=== PATIENT | female | born 1965 | race Caucasian/White ===

== ENCOUNTER 2016-10-05 08:35 | Emergency (ER) | payer MEDICARE ==
[2016-10-05 08:43] VITALS: BP 134/66; PULSE 102; RESP 18; TEMP 99.4
[2016-10-05] MEDS ORDERED: SULFAMETH-TMP DS STARTER PACK 2 TAB BTL PO STA (08:58)
[2016-10-05] MEDS ORDERED: DOXYCYCLINE 50 MG CAP PO STA (08:58)
[2016-10-05] MEDS ORDERED: AMOXICILLIN 500MG STARTER PACK 3 CAP BTL PO STA (09:01)
--- NOTE | 2016-10-05 09:10 | ED ---
Skin/Abscess/FB HPI - General Chief complaint: Skin/Abscess/Foreign Body Stated complaint: leg infection Time Seen by Provider: 10/05/16 08:49 Source: patient, RN notes reviewed, old records reviewed Mode of arrival: ambulatory Limitations: no limitations - History of Present Illness Initial comments: This is a 50-year-old female presenting to the emergency Department chief complaint of an erythematous rash over her left lower leg. Patient reports that she thinks she got stung or bit by something on 09/18/2016. Patient reports that she went to her primary care doctor afterward, and was prescribed a cream. Patient reports that it was itchy so she scratched it. She states that over the past week the area has now started to enlarge and has a red ring around it. She does not know exactly what she may have been bit by. She does not recall a tick. Patient states that she's had no fever or chills. She denies any other symptoms. Patient states that she is not ALLERGIC to any antibiotic. Patient reports she is concerned about the cost of antibiotics, as she does not have the financial means for most things. - Related Data Previous Rx's Medication Instructions Recorded Amoxicillin 500 mg PO TID 21 Days 10/05/16 Sulfamethox-Tmp 800-160Mg [Bactrim 1 tab PO Q12HR 10 Days 10/05/16 DS 800-160 mg] Allergies Allergy/AdvReac Type Severity Reaction Status Date / Time No Known Allergies Allergy Verified 10/05/16 08:43 Review of Systems ROS Statement: Those systems with pertinent positive or pertinent negative responses have been documented in the HPI. ROS Other: All systems not noted in ROS Statement are negative. Past Medical History Past Medical History: Seizure Disorder History of Any Multi-Drug Resistant Organisms: None Reported Past Surgical History: No Surgical Hx Reported Past Psychological History: Schizophrenia Smoking Status: Current every day smoker Past Alcohol Use History: None Reported Past Drug Use History: None Reported General Exam - General Exam Comments Initial Comments: His is a 50-year-old female. Patient does not appear to be in any acute distress. Limitations: no limitations General appearance: alert, in no apparent distress Head exam: Present: atraumatic, normocephalic, normal inspection Eye exam: Present: normal appearance, PERRL, EOMI. Absent: scleral icterus, conjunctival injection, periorbital swelling ENT exam: Present: normal exam, mucous membranes moist Neck exam: Present: normal inspection. Absent: tenderness, meningismus, lymphadenopathy Respiratory exam: Present: normal lung sounds bilaterally. Absent: respiratory distress, wheezes, rales, rhonchi, stridor Cardiovascular Exam: Present: regular rate, normal rhythm, normal heart sounds. Absent: systolic murmur, diastolic murmur, rubs, gallop, clicks GI/Abdominal exam: Present: soft, normal bowel sounds. Absent: distended, tenderness, guarding, rebound, rigid Extremities exam: Present: normal inspection, full ROM, normal capillary refill. Absent: tenderness, pedal edema, joint swelling, calf tenderness Back exam: Present: normal inspection Neurological exam: Present: alert, oriented X3, CN II-XII intact Psychiatric exam: Present: normal affect, normal mood Skin exam: Present: warm, dry, intact, normal color, erythema (Is a 6 cm x 7 cm area of erythema over the medial left lower leg. There is a central clearing around the initial bite site which has a pustule. The erythema is non- blanchable, does appear to be consistent with an erythema migrans.). Absent: rash Course Vital Signs 10/05/16 08:40 Temperature 99.4 F Pulse Rate 102 H Respiratory 18 Rate Blood Pressure 134/66 O2 Sat by Pulse 95 Oximetry Medical Decision Making - Medical Decision Making [id number] female chief complaint of a left lower leg infection. Patient reports that she was prescribed a cream by her primary care provider. Taking she got that by something, and 09/18/2016. Patient is concerned about the cost of medications. Patient does have a 6 cm x 7 cm area of circular erythema surrounding surrounding a small pustule. She states it was somewhat pruritic and she makes it infected after she scratched it. The rash does appear to be consistent with erythema migrans. Although patient does not remember getting bit by a tick, like to cover her for erythema migrans associated with Lyme's disease. Patient is concerned with the cost of antibiotics, according to up-to- date susceptible to treat the patient with amoxicillin 21 days.. That is a prescription that she can afford. Patient will be treated with amoxicillin, and Bactrim for a superficial cellulitis is overtop of the area. A culture was obtained from the white pustule. Patient understands she needs follow-up with her primary care provider. Patient understands treatment plan will comply. Disposition Clinical Impression: Erythema migrans (Lyme disease), Cellulitis Disposition: HOME SELF-CARE Condition: Good Instructions: Lyme Disease (ED), Cellulitis (ED) Additional Instructions: Patient is to follow-up with her primary care provider within the next 2-3 days. Take antibiotics as prescribed. Return to the emergency department if any alarming signs or symptoms occur. Prescriptions: Amoxicillin 500 mg PO TID 21 Days Sulfamethox-Tmp 800-160Mg [Bactrim DS 800-160 mg] 1 tab PO Q12HR 10 Days Referrals: Beny Leyva MD [Primary Care Provider] - 1-2 days Time of Disposition: 09:07
== END 2016-10-05 09:22 | disposition home or self-care (01) ==
LOC: EC 08:35
DX: A26.0 Cutaneous erysipeloid (principal); L03.116 Cellulitis of left lower limb; F17.200 Nicotine dependence, unspecified, uncomplicated
CPT/HCPCS: 87070; 87205; 99283

== ENCOUNTER 2016-11-01 20:55 | Inpatient (IN) | payer MEDICARE ==
[~2016-11-01 20:55] MED LIST: VANCOMYCIN 1,750 MG in SODIUM CHLORIDE 0.9% 250 ML IVPB SCH
[2016-11-01] MEDS ORDERED: ACETAMINOPHEN TAB 500 MG TAB PO STA (21:20)
--- NOTE | 2016-11-01 21:25 | ED ---
General Adult HPI - General Chief complaint: Shortness of Breath Stated complaint: off balance/bites on leg Time Seen by Provider: 11/01/16 21:11 Source: patient Mode of arrival: wheelchair Limitations: no limitations - History of Present Illness Initial comments: This is a 51-year-old female who presents him in [facility] with multiple complaints. She states that a couple of hours ago she was walking inside stepped and also is felt like she pulled a muscle in the right side of her back. She states that she also has noticed redness and swelling in her left lower extremity. She was treated here recently for a tick bite and was discharged home on antibiotics which she completed. She states that the redness seemed to get better with the antibiotics however after stopping them it seemed to recur. She admits to some occasional shortness of breath when she smokes. The patient is a heavy smoker and smokes approximately a pack a day or more. She denies any abdominal pain. No nausea or vomiting or diarrhea. No dysuria or hematuria. She denies any other complaints. - Related Data Home Medications Medication Instructions Recorded Confirmed Divalproex Sodium [Depakote] 500 mg PO BID 10/05/16 11/01/16 cloZAPine [Clozaril] 100 mg PO QAM 10/05/16 11/01/16 cloZAPine [Clozaril] 200 mg PO HS 10/05/16 11/01/16 Clozaril Injection 1 dose IM Q28D 11/01/16 11/01/16 Allergies Allergy/AdvReac Type Severity Reaction Status Date / Time No Known Allergies Allergy Verified 11/01/16 21:59 Review of Systems ROS Statement: Those systems with pertinent positive or pertinent negative responses have been documented in the HPI. ROS Other: All systems not noted in ROS Statement are negative. Past Medical History Past Medical History: Seizure Disorder History of Any Multi-Drug Resistant Organisms: None Reported Past Surgical History: No Surgical Hx Reported Past Psychological History: Schizophrenia Smoking Status: Current every day smoker Past Alcohol Use History: None Reported Past Drug Use History: None Reported General Exam - General Exam Comments Initial Comments: Constitutional: Awake alert Appears comfortable Head: Normocephalic atraumatic Eyes: no conjunctival injection No scleral icterus EOMI Neck: No JVD Supple Heart: Regular rate rhythm normal S1-S2 no murmurs Lungs: There is right-sided wheezing on expiration No rales Abdomen: Soft nondistended nontender Extremities: Non edematous DP pulses intact Radial pulses intact, there is an area of erythema to the left medial calf. There is a pustule at the center of this with some surrounding erythema. There is no warmth to touch Neuro: A&Ox3 No focal neurologic deficits Psych: Appropriate mood and affect Limitations: no limitations Course Vital Signs 11/01/16 11/01/16 11/01/16 20:59 21:01 21:14 Temperature 101.9 F H Pulse Rate 101 H 94 Respiratory 26 H 22 22 Rate Blood Pressure 131/59 141/79 O2 Sat by Pulse 96 94 L Oximetry 11/01/16 11/01/16 11/01/16 22:01 22:35 23:11 Temperature 98.9 F Pulse Rate 89 83 84 Respiratory 18 18 20 Rate Blood Pressure 127/60 126/60 121/62 O2 Sat by Pulse 95 96 97 Oximetry EKG Findings - EKG Comments: EKG Findings:: EKG showing normal sinus rhythm with a rate of 99. No abnormal ST segment changes or T-wave inversions. QTC is 474. Other intervals are normal. No ectopy. Procedures - Sepsis Sepsis Focused Exam #1 Sepsis Focused Exam Date: 11/01/16 Sepsis Focused Exam Time: 23:29 Sepsis Focused Exam Complete: Yes Vital Signs & RN Notes Reviewed: Yes Capillary Refill: < 2 Seconds: Fingers, Toes Peripheral Pulses: Normal: Radial (R), Radial (L) Skin Color: Normal for Patient Respiratory Exam: wheezes Cardiovascular Exam: regular rate Medical Decision Making - Medical Decision Making This is a 51-year-old female who presents emergency department for backache, persistent leg redness and swelling, and mild shortness of breath. The patient was found to be septic from likely a cellulitis source of her left lower extremity. My concern is that the patient has become bacteremic. She doesn't leukocytosis. Initial lactate was 5 however this trended down to 2.4 after fluids. The patient's blood pressure is been stable since she's been in the emergency department. Vancomycin and cefepime were started empirically. At this time I feel the patient needs to stay in the hospital for severe sepsis from suspected cellulitis of the source. Dr. Bernard accepts the admission. [facility] will [facility]. - Lab Data Result diagrams: 11/01/16 21:35 11/01/16 21:35 Lab Results 11/01/16 11/01/16 11/01/16 Range/Units 21:35 21:35 21:35 WBC 13.5 H (3.8-10.6) k/uL RBC 4.72 (3.80-5.40) m/uL Hgb 14.2 (11.4-16.0) gm/dL Hct 44.2 (34.0-46.0) % MCV 93.7 (80.0-100.0) fL MCH 30.1 (25.0-35.0) pg MCHC 32.1 (31.0-37.0) g/dL RDW 14.7 (11.5-15.5) % Plt Count 223 (150-450) k/uL Neutrophils % 83 % Lymphocytes % 11 % Monocytes % 5 % Eosinophils % 0 % Basophils % 0 % Neutrophils # 11.2 H (1.3-7.7) k/uL Lymphocytes # 1.5 (1.0-4.8) k/uL Monocytes # 0.6 (0-1.0) k/uL Eosinophils # 0.0 (0-0.7) k/uL Basophils # 0.0 (0-0.2) k/uL PT 10.0 (9.0-12.0) sec INR 1.0 (<1.2) APTT 18.5 L (22.0-30.0) sec Sodium 139 (137-145) mmol/L Potassium 4.2 (3.5-5.1) mmol/L Chloride 102 (98-107) mmol/L Carbon Dioxide 22 (22-30) mmol/L Anion Gap 15 mmol/L BUN 11 (7-17) mg/dL Creatinine 1.00 (0.52-1.04) mg/dL Est GFR (MDRD) Af Amer >60 (>60 ml/min/1.73 sqM) Est GFR (MDRD) Non-Af 59 (>60 ml/min/1.73 sqM) Glucose 149 H (74-99) mg/dL Plasma Lactic Acid Aneesh (0.7-2.0) mmol/L Calcium 10.0 (8.4-10.2) mg/dL Total Bilirubin 0.3 (0.2-1.3) mg/dL AST 27 (14-36) U/L ALT 39 (9-52) U/L Alkaline Phosphatase 103 (38-126) U/L Total Protein 6.8 (6.3-8.2) g/dL Albumin 4.1 (3.5-5.0) g/dL Urine Color Urine Appearance (Clear) Urine pH (5.0-8.0) Ur Specific [place] (1.001-1.035) Urine Protein (Negative) Urine Glucose (UA) (Negative) Urine Ketones (Negative) Urine Blood (Negative) Urine Nitrite (Negative) Urine Bilirubin (Negative) Urine Urobilinogen (<2.0) mg/dL Ur Leukocyte Esterase (Negative) Urine RBC (0-5) /hpf Urine WBC (0-5) /hpf Ur Squamous Epith Cells (0-4) /hpf Calcium Oxalate Crystal (None) /hpf Urine Bacteria (None) /hpf Hyaline Casts (0-2) /lpf Granular Casts (0) /lpf Urine Mucus (None) /hpf 11/01/16 11/01/16 11/01/16 Range/Units 21:35 21:50 23:02 WBC (3.8-10.6) k/uL RBC (3.80-5.40) m/uL Hgb (11.4-16.0) gm/dL Hct (34.0-46.0) % MCV (80.0-100.0) fL MCH (25.0-35.0) pg MCHC (31.0-37.0) g/dL RDW (11.5-15.5) % Plt Count (150-450) k/uL Neutrophils % % Lymphocytes % % Monocytes % % Eosinophils % % Basophils % % Neutrophils # (1.3-7.7) k/uL Lymphocytes # (1.0-4.8) k/uL Monocytes # (0-1.0) k/uL Eosinophils # (0-0.7) k/uL Basophils # (0-0.2) k/uL PT (9.0-12.0) sec INR (<1.2) APTT (22.0-30.0) sec Sodium (137-145) mmol/L Potassium (3.5-5.1) mmol/L Chloride (98-107) mmol/L Carbon Dioxide (22-30) mmol/L Anion Gap mmol/L BUN (7-17) mg/dL Creatinine (0.52-1.04) mg/dL Est GFR (MDRD) Af Amer (>60 ml/min/1.73 sqM) Est GFR (MDRD) Non-Af (>60 ml/min/1.73 sqM) Glucose (74-99) mg/dL Plasma Lactic Acid Aneesh 5.7 H* 2.4 H* (0.7-2.0) mmol/L Calcium (8.4-10.2) mg/dL Total Bilirubin (0.2-1.3) mg/dL AST (14-36) U/L ALT (9-52) U/L Alkaline Phosphatase (38-126) U/L Total Protein (6.3-8.2) g/dL Albumin (3.5-5.0) g/dL Urine Color Yellow Urine Appearance Cloudy H (Clear) Urine pH 5.0 (5.0-8.0) Ur Specific [place] 1.018 (1.001-1.035) Urine Protein 1+ H (Negative) Urine Glucose (UA) Negative (Negative) Urine Ketones 2+ H (Negative) Urine Blood Negative (Negative) Urine Nitrite Negative (Negative) Urine Bilirubin Negative (Negative) Urine Urobilinogen 2.0 (<2.0) mg/dL Ur Leukocyte Esterase Small H (Negative) Urine RBC 7 H (0-5) /hpf Urine WBC 11 H (0-5) /hpf Ur Squamous Epith Cells 3 (0-4) /hpf Calcium Oxalate Crystal Rare H (None) /hpf Urine Bacteria Rare H (None) /hpf Hyaline Casts 80 H (0-2) /lpf Granular Casts 3 (0) /lpf Urine Mucus Rare H (None) /hpf Disposition Clinical Impression: Severe sepsis, Cellulitis Disposition: ADMITTED IP TO THIS HOSP Condition: Fair Referrals: Beny Leyva MD [Primary Care Provider] - 1-2 days
[2016-11-01] MEDS: SODIUM CHLORIDE 0.9% 500 ML IV SCH ×3 (21:43→23:07)
[2016-11-01 21:44] LABS: Basophils % (A) 0 %; CH 31.6; Eosinophils % (A) 0 %; HCT 44.2 % (34.0-46.0); HDW 2.47; HGB 14.2 gm/dL (11.4-16.0); Luc # (Auto) 0.09; Luc % (Auto) 1; Lymphocytes # (A) 1.5 k/uL (1.0-4.8); Lymphocytes % (A) 11 %; MCH 30.1 pg (25.0-35.0); MCHC 32.1 g/dL (31.0-37.0); MCV 93.7 fL (80.0-100.0); Mean Platelet Volume 9.7; Monocytes # (A) 0.6 k/uL (0-1.0); Monocytes % (A) 5 %; Neutrophils # (A) 11.2 k/uL (1.3-7.7); Neutrophils % (A) 83 %; RBC 4.72 m/uL (3.80-5.40); RDW 14.7 % (11.5-15.5); WBC 13.5 k/uL (3.8-10.6); WBC (Perox) 13.76
--- NOTE | 2016-11-01 21:50 | XR ---
EXAMINATION TYPE: XR chest 2V DATE OF EXAM: 11/01/2016 COMPARISON: NONE HISTORY: Fever TECHNIQUE: Frontal and lateral views of the chest are obtained. FINDINGS: There is no focal air space opacity, pleural effusion, or pneumothorax seen. The cardiac silhouette size is within normal limits. The osseous structures are intact. IMPRESSION: No acute cardiopulmonary process.
[2016-11-01 21:53] LABS: ALT 39 U/L (9-52); AST 27 U/L (14-36); Alkaline Phosphatase 103 U/L (38-126); Anion Gap 15 mmol/L; Blood Urea Nitrogen 11 mg/dL (7-17); Carbon Dioxide 22 mmol/L (22-30); Chloride 102 mmol/L (98-107); Glucose 149 mg/dL (74-99); Non-African American GFR(MDRD) 59 (>60 ml/min/1.73 sqM); Potassium 4.2 mmol/L (3.5-5.1); Sodium 139 mmol/L (137-145); Total Bilirubin 0.3 mg/dL (0.2-1.3); Total Protein 6.8 g/dL (6.3-8.2)
[2016-11-01 21:55] LABS: Appearance,Urine Cloudy (Clear); Bacteria,Urine Rare /hpf; Bilirubin,Urine Negative (Negative); Calcium Oxalate Crystals,Urine Rare /hpf; Glucose,Urine (UA) Negative (Negative); Granular Casts,Urine 3 /lpf (0); Ketones,Urine 2+ (Negative); Leukocyte Esterase,Urine Small (Negative); Mucus,Urine Rare /hpf; Nitrite,Urine Negative (Negative); Particle Count 7286; Protein,Urine 1+ (Negative); RBC,Urine 7 /hpf (0-5); Specific Gravity,Urine 1.018 (1.001-1.035); Squamous Epithelial Cell,Urine 3 /hpf (0-4); UA Billing (MACRO vs. MICRO) MICRO; WBC,Urine 11 /hpf (0-5)
[2016-11-01 22:11] LABS: Partial Thromboplastin Time 18.5 sec (22.0-30.0)
[2016-11-01] MEDS ORDERED: CEFEPIME 1 GM in SODIUM CHLORIDE 0.9% 50 ML IVPB STA (22:43)
[2016-11-01] MEDS ORDERED: IV VANCOMYCIN PER PHARMACY 1 EACH MISC MISCELLANE PRN (22:43)
[2016-11-01] MEDS ORDERED: CLOZARIL IM SCH (23:15)
[2016-11-02] MEDS: cloZAPine 100 MG TAB PO SCH ×3 (00:15→20:23)
[2016-11-02] MEDS: DIVALPROEX 500 MG TABLET.DR PO SCH ×3 (00:16→20:23)
[2016-11-02] MEDS: SODIUM CHLORIDE 0.9% 500 ML IV SCH ×2 (00:51→01:47)
[2016-11-02 01:05] VITALS: BMI 39.6
[2016-11-02] MEDS: VANCOMYCIN 1,750 MG in SODIUM CHLORIDE 0.9% 250 ML IVPB SCH ×2 (01:37→16:57)
--- NOTE | 2016-11-02 07:47 | P.HPIM ---
History of Present Illness H&P Date: 11/02/16 Chief Complaint: Left lower extremity redness with fever. This is a 51-year-old white female who states significant fever and chills. Some lethargy was also noted. She was admitted secondary to cellulitis and sepsis element. Lactic acid was elevated. No sniffing chest pain. No significant shortness of breath. She is now seen the day after and feels much better. Review of Systems Constitutional: Reports fever, Reports weakness Eyes: denies blurred vision, denies pain Ears, nose, mouth and throat: Denies headache, Denies sore throat Cardiovascular: Denies chest pain, Denies shortness of breath Respiratory: Denies cough Gastrointestinal: Reports as per HPI Integumentary: Reports rash Neurological: Denies numbness, Denies weakness Past Medical History Past Medical History: Seizure Disorder History of Any Multi-Drug Resistant Organisms: None Reported Past Surgical History: No Surgical Hx Reported Past Psychological History: Schizophrenia Smoking Status: Current every day smoker Past Alcohol Use History: None Reported Past Drug Use History: None Reported - Past Family History Mother History Unknown: Yes Additional Family Medical History / Comment(s): pt stated that her mother of "bad heart" pt is not sure if it was a heart attack ot heart failure Father Family Medical History: Diabetes Mellitus Medications and Allergies Home Medications Medication Instructions Recorded Confirmed Type Divalproex Sodium [Depakote] 500 mg PO BID 10/05/16 11/01/16 History cloZAPine [Clozaril] 100 mg PO QAM 10/05/16 11/01/16 History cloZAPine [Clozaril] 200 mg PO HS 10/05/16 11/01/16 History Clozaril Injection 1 dose IM Q28D 11/01/16 11/01/16 History Allergies Allergy/AdvReac Type Severity Reaction Status Date / Time No Known Allergies Allergy Verified 11/01/16 21:59 Physical Exam Vitals: Vital Signs Temp Pulse Pulse Resp BP BP Pulse Ox 11/02/16 07:38 74 18 11/02/16 03:58 74 18 11/02/16 03:55 97 F L 74 18 121/77 98 11/02/16 02:40 98.5 F 79 20 131/78 97 11/02/16 00:00 79 20 11/01/16 23:42 98.5 F 79 20 131/78 98 11/01/16 23:11 98.9 F 84 20 121/62 97 11/01/16 22:35 83 18 126/60 96 11/01/16 22:01 89 18 127/60 95 11/01/16 21:14 22 11/01/16 21:01 94 22 141/79 94 L 11/01/16 20:59 101.9 F H 101 H 26 H 131/59 96 Intake and Output 11/01/16 11/02/16 11/02/16 22:59 06:59 14:59 Intake Total 2050 Output Total 2600 Balance -550 Intake: Intake, IV Titration 1750 Amount Sodium Chloride 0.9% 500 1500 ml @ 1000 mls/hr IV Q35M [place] Rx#:[id number] Vancomycin 1,750 mg In 250 Sodium Chloride 0.9% 250 ml @ 125 mls/hr IVPB Q16H [place] Rx#:[id number] Oral 300 Output: Urine 2600 Other: Voiding Method Toilet Toilet # Voids 1 Weight 101.196 kg 101.5 kg - Constitutional General appearance: no acute distress - EENT Eyes: EOMI - Neck Neck: no lymphadenopathy - Gastrointestinal General gastrointestinal: no organomegaly, soft, no tenderness - Integumentary The patient has an element of about 8 x 8 cm cellulitis on the inner half of the lower left extremity. Integumentary: cellulitis - Psychiatric Psychiatric: A&O x's 3 Results CBC & Chem 7: 11/01/16 21:35 11/01/16 21:35 Labs: Abnormal Lab Results - Last 24 Hours (Table) 11/01/16 11/01/16 11/01/16 Range/Units 21:35 21:35 21:35 WBC 13.5 H (3.8-10.6) k/uL Neutrophils # 11.2 H (1.3-7.7) k/uL APTT 18.5 L (22.0-30.0) sec Glucose 149 H (74-99) mg/dL Plasma Lactic Acid Aneesh (0.7-2.0) mmol/L Urine Appearance (Clear) Urine Protein (Negative) Urine Ketones (Negative) Ur Leukocyte Esterase (Negative) Urine RBC (0-5) /hpf Urine WBC (0-5) /hpf Calcium Oxalate Crystal (None) /hpf Urine Bacteria (None) /hpf Hyaline Casts (0-2) /lpf Urine Mucus (None) /hpf 11/01/16 11/01/16 11/01/16 Range/Units 21:35 21:50 23:02 WBC (3.8-10.6) k/uL Neutrophils # (1.3-7.7) k/uL APTT (22.0-30.0) sec Glucose (74-99) mg/dL Plasma Lactic Acid Aneesh 5.7 H* 2.4 H* (0.7-2.0) mmol/L Urine Appearance Cloudy H (Clear) Urine Protein 1+ H (Negative) Urine Ketones 2+ H (Negative) Ur Leukocyte Esterase Small H (Negative) Urine RBC 7 H (0-5) /hpf Urine WBC 11 H (0-5) /hpf Calcium Oxalate Crystal Rare H (None) /hpf Urine Bacteria Rare H (None) /hpf Hyaline Casts 80 H (0-2) /lpf Urine Mucus Rare H (None) /hpf Thrombosis Risk Factor Assmnt - Choose All That Apply Any of the Below Risk Factors Present?: Yes Each Factor Represents 1 point: Age 41-60 years Thrombosis Risk Factor Assessment Total Risk Factor Score: 1 Thrombosis Risk Factor Assessment Level: Low Risk Assessment and Plan (1) Seizure disorder Status: Chronic (2) Cellulitis Status: Acute Plan: We'll going continue IV antibiotic treatment for the next 24-48 hours. Progress check CBC and CMP in a.m. Reconcile home medications. See orders otherwise. Time with Patient: Greater than 30
[2016-11-03 05:51] LABS: CH 30.6; CHCM 32.5; HCT 39.5 % (34.0-46.0); HDW 2.51; HGB 13.2 gm/dL (11.4-16.0); MCH 31.6 pg (25.0-35.0); MCHC 33.4 g/dL (31.0-37.0); MCV 94.5 fL (80.0-100.0); Mean Platelet Volume 8.9; RBC 4.18 m/uL (3.80-5.40); WBC 7.1 k/uL (3.8-10.6)
[2016-11-03 06:02] LABS: ALT 48 U/L (9-52); AST 58 U/L (14-36); Alkaline Phosphatase 80 U/L (38-126); Anion Gap 6 mmol/L; Blood Urea Nitrogen 6 mg/dL (7-17); Calcium 9.1 mg/dL (8.4-10.2); Carbon Dioxide 28 mmol/L (22-30); Chloride 108 mmol/L (98-107); Glucose 108 mg/dL (74-99); Non-African American GFR(MDRD) >60 (>60 ml/min/1.73 sqM); Potassium 4.4 mmol/L (3.5-5.1); Sodium 142 mmol/L (137-145); Total Bilirubin 0.3 mg/dL (0.2-1.3); Total Protein 5.8 g/dL (6.3-8.2)
--- NOTE | 2016-11-03 08:17 | P.PN ---
Subjective Principal diagnosis: Cellulitis of the left inner lower extremity. This is a continue progress note on a 51-year-old white female essentially admitted for left lower 70 cellulitis. She does have positive blood cultures and we are waiting for appropriate sensitivity. She feels clinically improved although there is now element of pustule on her lower 70. We'll go ahead and start some Silvadene cream today. Objective - Vital Signs Vital signs: Vital Signs Temp 97.9 F 11/03/16 04:00 Pulse 68 11/03/16 04:00 Resp 19 11/03/16 04:00 BP 130/74 11/03/16 04:00 Pulse Ox 96 11/03/16 04:00 Intake & Output 11/02/16 11/03/16 11/03/16 18:59 06:59 18:59 Intake Total 582 Output Total 450 1050 Balance 132 -1050 Weight 101.7 kg Intake: Oral 582 Output: Urine 450 1050 Other: Voiding Method Toilet Toilet # Voids 1 - Constitutional General appearance: Present: cooperative, obese - EENT Eyes: Absent: abnormal pupil - Respiratory Respiratory: bilateral: CTA - Cardiovascular Rhythm: regular Heart sounds: normal: S1, S2 - Gastrointestinal General gastrointestinal: Present: soft. Absent: tenderness - Integumentary Integumentary: Present: cellulitis - Labs CBC & Chem 7: 11/03/16 05:33 11/03/16 05:33 Labs: Abnormal Lab Results - Last 24 Hours (Table) 11/03/16 Range/Units 05:33 Chloride 108 H (98-107) mmol/L BUN 6 L (7-17) mg/dL Glucose 108 H (74-99) mg/dL AST 58 H (14-36) U/L Total Protein 5.8 L (6.3-8.2) g/dL Albumin 3.3 L (3.5-5.0) g/dL Microbiology - Last 24 Hours (Table) 11/01/16 21:35 Blood Culture Gram Stain - Preliminary Blood 11/01/16 21:35 Blood Culture - Final Blood 11/01/16 21:35 Urine Culture - Preliminary Urine,Voided Assessment and Plan (1) Seizure disorder Status: Chronic (2) Cellulitis Status: Acute Plan: Continue current treatment until sensitivity is acquired. Anticipate discharge in next 24-48 hours if her blood count continues to be stable. Add Silvadene as stated above.
[2016-11-03] MEDS: cloZAPine 100 MG TAB PO SCH ×2 (09:11→20:17)
[2016-11-03] MEDS: DIVALPROEX 500 MG TABLET.DR PO SCH ×2 (09:12→20:16)
[2016-11-03] MEDS: VANCOMYCIN 1,750 MG in SODIUM CHLORIDE 0.9% 250 ML IVPB SCH (09:14)
[2016-11-04] MEDS: VANCOMYCIN 1,750 MG in SODIUM CHLORIDE 0.9% 250 ML IVPB SCH (01:25)
[2016-11-04] MEDS: cloZAPine 100 MG TAB PO SCH (07:35)
[2016-11-04] MEDS: DIVALPROEX 500 MG TABLET.DR PO SCH (07:35)
[2016-11-04 08:00] VITALS: BP 127/66; PULSE 76; RESP 16; TEMP 96.4
[2016-11-04 08:21] LABS: CH 31.6; HCT 41.5 % (34.0-46.0); HDW 2.49; HGB 13.2 gm/dL (11.4-16.0); MCH 30.7 pg (25.0-35.0); MCHC 31.9 g/dL (31.0-37.0); MCV 96.2 fL (80.0-100.0); Mean Platelet Volume 9.5; RBC 4.31 m/uL (3.80-5.40); RDW 14.9 % (11.5-15.5); WBC 8.5 k/uL (3.8-10.6)
[2016-11-04 08:42] LABS: ALT 44 U/L (9-52); AST 40 U/L (14-36); Alkaline Phosphatase 82 U/L (38-126); Anion Gap 10 mmol/L; Blood Urea Nitrogen 4 mg/dL (7-17); Calcium 9.4 mg/dL (8.4-10.2); Carbon Dioxide 25 mmol/L (22-30); Chloride 109 mmol/L (98-107); Glucose 124 mg/dL (74-99); Non-African American GFR(MDRD) >60 (>60 ml/min/1.73 sqM); Potassium 4.1 mmol/L (3.5-5.1); Sodium 144 mmol/L (137-145); Total Bilirubin 0.3 mg/dL (0.2-1.3); Total Protein 5.9 g/dL (6.3-8.2)
--- NOTE | 2016-11-04 08:54 | P.DS ---
Providers Date of admission: 11/01/16 23:30 Attending physician: Beny Leyva Primary care physician: Beny Leyva - Discharge Diagnosis(es) (1) Seizure disorder Current Visit: Yes Status: Chronic (2) Cellulitis Current Visit: Yes Status: Acute Hospital Course: This discharge summary 51-year-old white female essentially admitted for cellulitis. The patient was treated with appropriate antibiotic treatment but had positive blood culture. She will placed on appropriate antibiotic treatment for at least 10 days orally. She is stable afebrile without significant problems related to infection at this point. She'll follow-up with me in about 2 days. Patient Condition at Discharge: Fair Plan - Discharge Summary New Discharge Prescriptions: New Amoxicillin/Potassium Clav [Augmentin 875-125 Tablet] 1 tab PO Q12HR #20 tab No Action cloZAPine [Clozaril] 100 mg PO QAM cloZAPine [Clozaril] 200 mg PO HS Divalproex Sodium [Depakote] 500 mg PO BID Clozaril Injection 1 dose IM Q28D Discharge Medication List Divalproex Sodium [Depakote] 500 mg PO BID 10/05/16 [History] cloZAPine [Clozaril] 100 mg PO QAM 10/05/16 [History] cloZAPine [Clozaril] 200 mg PO HS 10/05/16 [History] Clozaril Injection 1 dose IM Q28D 11/01/16 [History] Amoxicillin/Potassium Clav [Augmentin 875-125 Tablet] 1 tab PO Q12HR #20 tab [Rx] Follow up Appointment(s)/Referral(s): Beny Leyva MD [Primary Care Provider] - 1-2 days
[2016-11-04] MEDS ORDERED: VANCOMYCIN 1,750 MG in SODIUM CHLORIDE 0.9% 250 ML IVPB SCH (12:00)
[2016-11-05] MEDS ORDERED: VANCOMYCIN TROUGH DUE 1 EACH MISC MISCELLANE ONE (11:00)
== END 2016-11-04 09:25 | disposition home or self-care (01) | DRG 872 ==
LOC: EC 20:55 → 6SEL 23:30 → 4MS4W 11-03 18:09
PROVIDERS: ADMIT Family Medicine; ATTEND Family Medicine
DX: A41.9 Sepsis, unspecified organism (principal); F20.9 Schizophrenia, unspecified; L03.116 Cellulitis of left lower limb; E66.9 Obesity, unspecified; G40.909 Epilepsy, unspecified, not intractable, without status epilepticus; R06.2 Wheezing; R65.20 Severe sepsis without septic shock; M54.9 Dorsalgia, unspecified; R53.1 Weakness; F17.200 Nicotine dependence, unspecified, uncomplicated; Z83.3 Family history of diabetes mellitus; Z79.899 Other long term (current) drug therapy; Z82.49 Family history of ischemic heart disease and other diseases of the circulatory system; Z87.828 Personal history of other (healed) physical injury and trauma
CPT/HCPCS: 36415; 71020; 80053; 81001; 83605; 85025; 85027; 85610; 85730; 87040; 87077; 87086; 87186; 93005; 96360; 96361; 96365; 99285

== ENCOUNTER → 2016-11-18 | Outpatient (CLI) | payer MEDICARE ==
--- NOTE | 2016-11-18 11:25 | WWHP ---
[facility] - HISTORY AND PHYSICAL DATE OF SERVICE: 11/18/2016 CHIEF COMPLAINT: The patient is here for her routine gynecologic exam and mammogram. HPI: This is a 51-year-old, G1, P1 with an LMP of 2010. The patient is without gynecologic complaints and denies any postmenopausal bleeding. PAST MEDICAL HISTORY: Seizure disorder and schizophrenia. MEDICATIONS: 1. Clozaril 100 mg 1 in the morning and 2 in the afternoon. 2. Depakote 250 mg b.i.d. ALLERGIES: No known drug allergies. 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 SOCIAL HISTORY: She admits to smoking about 5 cigarettes per day and denies alcohol and drug use. She has been since 2003 and is disabled. REVIEW OF SYSTEMS: She has gained about 9 pounds over the last year. She denies respiratory, cardiac or GI problems. PHYSICAL EXAM: Blood pressure 127/78, height 5 feet 3 inches, weight 221 pounds, temperature 97.8, pulse 87. This is a well-developed, heavyset female who is alert and oriented x3, in no acute distress HEENT is within normal limits. NECK: Supple without mass or thyromegaly. Chest and lungs there is some scattered rhonchi throughout the lung gimenez bilaterally. No significant wheezing. HEART: Regular rate and rhythm. Breasts are without mass or discharge. There is bilateral central nipple inversion which she states she has had for many years. Axillary exam is negative for adenopathy. Back negative for CVA tenderness. ABDOMEN: Obese, soft, nontender, without palpable masses. Pelvic exam external genitalia reveals mild atrophy without lesions. Cervix and vagina reveals mild atrophy without lesions. There is no evidence of prolapse. The uterus is mid position, nongravid size and nontender. There are no palpable adnexal masses or tenderness. Bimanual examination is somewhat limited secondary to her size. Rectovaginal exam is negative for mass or tenderness, but the stool is Hemoccult positive. EXTREMITIES: Nontender. IMPRESSION: 1. 51-year-old menopausal female with normal gynecologic exam. 2. Hemoccult-positive stool without history of blood per rectum according to the patient. PLAN: 1. Pap smear was deferred since she had a normal one last year. 2. Self breast examination was discussed. 3. Mammogram will be done today. 4. Osteoporosis prevention was discussed. 5. I have recommended screening colonoscopy. She states she will arrange this through her primary care physician Dr. Leyva. 6. I have recommended that she try to quit smoking and I have given her several reasons why this is important. 7. She will return in 1 year. MMSYEDL / FLORINDAN: [id number] /
--- NOTE | 2016-11-19 13:01 | MM ---
Reason for exam: screening (asymptomatic). Last mammogram was performed 1 year and 1 month ago. History: Benign US right guided VAD of the right breast, May 28, 2010. Benign US right guided VAD of the right breast, August 31, 2008. Benign excisional biopsy of the left breast, 1988. Physical Findings: A clinical breast exam by your physician is recommended on an annual basis and results should be correlated with mammographic findings. MG 3D Screening Mammo W/Cad Bilateral CC and MLO view(s) were taken. Prior study comparison: October 30, 2015, bilateral MG 3d screening mammo w/cad. May 15, 2014, bilateral MG screening mammo w CAD. May 13, 2010, CAD bilateral diagnostic mammogram. There is a stable mass left inner quadrant middle depth of the left breast. No suspicious abnormality. Post biopsy change in the right breast. No significant changes when compared with prior studies. ASSESSMENT: Benign, BI-RAD 2 RECOMMENDATION: Routine screening mammogram of both breasts in 1 year.
== END | disposition home or self-care (01) ==
LOC: WWCWWP 09:42
PROVIDERS: ATTEND Obstetrics & Gynecology
DX: Z12.31 Encounter for screening mammogram for malignant neoplasm of breast (principal)
CPT/HCPCS: 77063; G0202

== ENCOUNTER 2017-01-08 14:30 | Emergency (ER) | payer MEDICARE ==
--- NOTE | 2017-01-08 15:56 | ED ---
General Adult HPI - General Chief complaint: Skin/Abscess/Foreign Body Stated complaint: Feet swollen Time Seen by Provider: 01/08/17 15:44 Source: patient, RN notes reviewed Mode of arrival: ambulatory Limitations: no limitations - History of Present Illness Initial comments: 51-year-old female presents for evaluation of bilateral lower extremity swelling. She also complains of a rash on the medial aspect of her left calf, says been present for months, she was admitted and treated for cellulitis. According to the patient this is improving. Lower extremity swelling has been progressing over the past 24 hours. She states she has been on her feet more than usual. Denies chest pain or shortness of breath. Denies any change in her medications which include antipsychotic medication for history of schizophrenia. Denies fever or chills. Denies nausea vomiting or diarrhea. She also complains of a rash in her groin. - Related Data Home Medications Medication Instructions Recorded Confirmed Divalproex Sodium [Depakote] 500 mg PO BID 10/05/16 01/08/17 cloZAPine [Clozaril] 100 mg PO QAM 10/05/16 01/08/17 cloZAPine [Clozaril] 200 mg PO HS 10/05/16 01/08/17 Multivitamins, Thera [Multivitamin 1 tab PO DAILY 01/08/17 01/08/17 (formulary)] Previous Rx's Medication Instructions Recorded Clotrimazole Cream [Lotrimin Cream] 1 applic TOPICAL BID #30 gm 01/08/17 Allergies Allergy/AdvReac Type Severity Reaction Status Date / Time No Known Allergies Allergy Verified 01/08/17 15:42 Review of Systems ROS Statement: Those systems with pertinent positive or pertinent negative responses have been documented in the HPI. ROS Other: All systems not noted in ROS Statement are negative. Past Medical History Past Medical History: Seizure Disorder History of Any Multi-Drug Resistant Organisms: None Reported Past Surgical History: No Surgical Hx Reported Past Psychological History: Schizophrenia Smoking Status: Current every day smoker Past Alcohol Use History: None Reported Past Drug Use History: None Reported - Past Family History Mother History Unknown: Yes Additional Family Medical History / Comment(s): pt stated that her mother of "bad heart" pt is not sure if it was a heart attack ot heart failure Father Family Medical History: Diabetes Mellitus General Exam Limitations: no limitations General appearance: alert, in no apparent distress Head exam: Present: atraumatic, normocephalic Eye exam: Present: normal appearance, PERRL ENT exam: Present: normal exam Neck exam: Present: normal inspection. Absent: tenderness, meningismus Respiratory exam: Present: normal lung sounds bilaterally. Absent: respiratory distress, rales Cardiovascular Exam: Present: regular rate, normal rhythm GI/Abdominal exam: Present: soft. Absent: distended, tenderness Extremities exam: Present: normal capillary refill, pedal edema (1+ bilateral lower extremity edema), other (Rash on the groin, consistent with tinea, rash on the medial left calf: Erythematous, scaling, no induration or fluctuance) Neurological exam: Present: alert, oriented X3 Psychiatric exam: Present: normal affect, normal mood Skin exam: Present: warm, rash, erythema. Absent: urticaria Course Vital Signs 01/08/17 01/08/17 14:33 17:02 Temperature 97 F L 98.2 F Pulse Rate 101 H 67 Respiratory 22 18 Rate Blood Pressure 149/63 144/75 O2 Sat by Pulse 95 99 Oximetry Medical Decision Making - Medical Decision Making 51-year-old female presenting with 2 complaints, bilateral lower extremity swelling and rash to the groin area. Rash in the groin areas consistent with yeast infection. Patient is given a prescription for clotrimazole. Regarding the patient's bilateral lower extremity swelling, she does have 1+ pitting edema , or studies are obtained, normal white blood cell count, stable hemoglobin, BNP is normal, albumin 4.1 which is normal. Swelling is likely dependent edema as the patient has been on her feet more than usual. She is instructed to elevate her feet and follow-up with her primary care physician. - Lab Data Result diagrams: 01/08/17 16:05 01/08/17 16:05 Lab Results 01/08/17 01/08/17 01/08/17 Range/Units 16:05 16:05 16:05 WBC 9.0 (3.8-10.6) k/uL RBC 4.76 (3.80-5.40) m/uL Hgb 14.5 (11.4-16.0) gm/dL Hct 44.5 (34.0-46.0) % MCV 93.6 (80.0-100.0) fL MCH 30.4 (25.0-35.0) pg MCHC 32.5 (31.0-37.0) g/dL RDW 13.4 (11.5-15.5) % Plt Count 201 (150-450) k/uL Sodium 142 (137-145) mmol/L Potassium 5.3 H (3.5-5.1) mmol/L Chloride 105 (98-107) mmol/L Carbon Dioxide 29 (22-30) mmol/L Anion Gap 8 mmol/L BUN 11 (7-17) mg/dL Creatinine 0.86 (0.52-1.04) mg/dL Est GFR (MDRD) Af Amer >60 (>60 ml/min/1.73 sqM) Est GFR (MDRD) Non-Af >60 (>60 ml/min/1.73 sqM) Glucose 117 H (74-99) mg/dL Calcium 10.2 (8.4-10.2) mg/dL Total Bilirubin 0.3 (0.2-1.3) mg/dL AST 29 (14-36) U/L ALT 38 (9-52) U/L Alkaline Phosphatase 94 (38-126) U/L Troponin I (0.000-0.034) ng/mL NT-Pro-B Natriuret Pep 100 pg/mL Total Protein 7.1 (6.3-8.2) g/dL Albumin 4.1 (3.5-5.0) g/dL 01/08/17 Range/Units 16:05 WBC (3.8-10.6) k/uL RBC (3.80-5.40) m/uL Hgb (11.4-16.0) gm/dL Hct (34.0-46.0) % MCV (80.0-100.0) fL MCH (25.0-35.0) pg MCHC (31.0-37.0) g/dL RDW (11.5-15.5) % Plt Count (150-450) k/uL Sodium (137-145) mmol/L Potassium (3.5-5.1) mmol/L Chloride (98-107) mmol/L Carbon Dioxide (22-30) mmol/L Anion Gap mmol/L BUN (7-17) mg/dL Creatinine (0.52-1.04) mg/dL Est GFR (MDRD) Af Amer (>60 ml/min/1.73 sqM) Est GFR (MDRD) Non-Af (>60 ml/min/1.73 sqM) Glucose (74-99) mg/dL Calcium (8.4-10.2) mg/dL Total Bilirubin (0.2-1.3) mg/dL AST (14-36) U/L ALT (9-52) U/L Alkaline Phosphatase (38-126) U/L Troponin I <0.012 (0.000-0.034) ng/mL NT-Pro-B Natriuret Pep pg/mL Total Protein (6.3-8.2) g/dL Albumin (3.5-5.0) g/dL Disposition Clinical Impression: Tinea cruris, Dependent edema Disposition: HOME SELF-CARE Condition: Good Instructions: Skin Yeast Infection (ED), Leg Edema (ED) Prescriptions: Clotrimazole Cream [Lotrimin Cream] 1 applic TOPICAL BID #30 gm Referrals: Beny Leyva MD [Primary Care Provider] - 1-2 days Time of Disposition: 17:08
[2017-01-08 16:18] LABS: CH 30.8; CHCM 33.1; HCT 44.5 % (34.0-46.0); HDW 2.55; HGB 14.5 gm/dL (11.4-16.0); MCH 30.4 pg (25.0-35.0); MCHC 32.5 g/dL (31.0-37.0); MCV 93.6 fL (80.0-100.0); Mean Platelet Volume 8.6; RBC 4.76 m/uL (3.80-5.40); RDW 13.4 % (11.5-15.5)
[2017-01-08 16:28] LABS: ALT 38 U/L (9-52); AST 29 U/L (14-36); Alkaline Phosphatase 94 U/L (38-126); Anion Gap 8 mmol/L; Blood Urea Nitrogen 11 mg/dL (7-17); Calcium 10.2 mg/dL (8.4-10.2); Carbon Dioxide 29 mmol/L (22-30); Chloride 105 mmol/L (98-107); Glucose 117 mg/dL (74-99); Non-African American GFR(MDRD) >60 (>60 ml/min/1.73 sqM); Potassium 5.3 mmol/L (3.5-5.1); Sodium 142 mmol/L (137-145); Total Bilirubin 0.3 mg/dL (0.2-1.3); Total Protein 7.1 g/dL (6.3-8.2)
[2017-01-08 17:03] VITALS: BP 144/75; PULSE 67; RESP 18; TEMP 98.2
== END 2017-01-08 17:18 | disposition home or self-care (01) ==
LOC: EC 14:30
DX: B35.6 Tinea cruris (principal); R60.0 Localized edema; F20.9 Schizophrenia, unspecified; F17.200 Nicotine dependence, unspecified, uncomplicated; Z86.69 Personal history of other diseases of the nervous system and sense organs; Z79.899 Other long term (current) drug therapy
CPT/HCPCS: 36415; 80053; 83880; 84484; 85027; 99283

== ENCOUNTER 2017-05-26 21:50 | Inpatient (IN) | payer MEDICARE ==
[2017-05-26] MEDS ORDERED: IBUPROFEN 600 MG TAB PO STA (22:24)
[2017-05-26] MEDS ORDERED: IPRATROPIUM-ALBUTEROL 3 ML NEB INHALATION STA (22:24)
[2017-05-26] MEDS ORDERED: ACETAMINOPHEN TAB 500 MG TAB PO STA (22:24)
[2017-05-26] MEDS ORDERED: methylPREDNISolone SOD SUCCI 125 MG/2 ML VIAL IV STA (22:25)
--- NOTE | 2017-05-26 22:28 | ED ---
General Adult HPI - General Chief complaint: Shortness of Breath Stated complaint: Dyspnea Time Seen by Provider: 05/26/17 22:19 Source: patient, family, RN notes reviewed Mode of arrival: ambulatory Limitations: no limitations - History of Present Illness Initial comments: Patient is a pleasant 51-year-old female presenting to the emergency Department with sister for dyspnea. Symptoms started a couple of days ago. Patient tries to minimize her symptoms however sister is a reliable historian. Patient does have cough. Patient has no sputum production. Patient feels only slightly short of breath. Patient does admit to some fatigue. No chest pain. Patient denies fevers at home. No history of asthma however patient is a smoker. Patient has not been diagnosed with COPD. Patient did have a bite of some sort of approximately 5 months ago on her left lower leg. There is a chronic rash there however it seems worse since sister last saw it. - Related Data Home Medications Medication Instructions Recorded Confirmed Divalproex Sodium [Depakote] 500 mg PO BID 10/05/16 05/26/17 cloZAPine [Clozaril] 100 mg PO QAM 10/05/16 05/26/17 cloZAPine [Clozaril] 200 mg PO HS 10/05/16 05/26/17 Allergies Allergy/AdvReac Type Severity Reaction Status Date / Time No Known Allergies Allergy Verified 05/26/17 22:31 Review of Systems ROS Statement: Those systems with pertinent positive or pertinent negative responses have been documented in the HPI. ROS Other: All systems not noted in ROS Statement are negative. Constitutional: Denies: fever Eyes: Denies: eye pain ENT: Denies: ear pain Respiratory: Reports: cough, dyspnea Cardiovascular: Denies: chest pain Endocrine: Reports: fatigue Gastrointestinal: Denies: abdominal pain Genitourinary: Denies: dysuria Musculoskeletal: Denies: back pain Skin: Reports: rash Neurological: Denies: headache Past Medical History Past Medical History: Seizure Disorder History of Any Multi-Drug Resistant Organisms: None Reported Past Surgical History: No Surgical Hx Reported Past Psychological History: Schizophrenia Smoking Status: Current every day smoker Past Alcohol Use History: None Reported Past Drug Use History: None Reported - Past Family History Mother History Unknown: Yes Additional Family Medical History / Comment(s): pt stated that her mother of "bad heart" pt is not sure if it was a heart attack ot heart failure Father Family Medical History: Diabetes Mellitus General Exam Limitations: no limitations General appearance: alert, in distress Head exam: Present: atraumatic Eye exam: Present: normal appearance, PERRL ENT exam: Present: normal oropharynx Neck exam: Present: normal inspection Respiratory exam: Present: respiratory distress, wheezes, accessory muscle use, decreased breath sounds Cardiovascular Exam: Present: tachycardia GI/Abdominal exam: Present: soft. Absent: tenderness Extremities exam: Absent: pedal edema, calf tenderness Neurological exam: Present: alert Psychiatric exam: Present: normal affect, normal mood Skin exam: Present: rash (Left anterior stewart with irregularly shaped hyperpigmented brownish lesion that is not confluent approximately 5-6 cm. There is some mild surrounding erythema.) Course Vital Signs 05/26/17 05/26/17 05/26/17 22:04 22:40 23:02 Temperature 103.2 F H 103.2 F H Pulse Rate 107 H 108 H 99 Respiratory 24 44 H Rate Blood Pressure 102/59 139/56 O2 Sat by Pulse 89 L 93 L Oximetry 05/27/17 05/27/17 05/27/17 00:00 00:44 00:54 Temperature 101.3 F H 100.8 F H Pulse Rate 89 82 80 Respiratory 38 H 38 H Rate Blood Pressure 125/55 119/73 O2 Sat by Pulse 92 L 93 L Oximetry 05/27/17 05/27/17 01:05 01:06 Temperature Pulse Rate 80 81 Respiratory 31 H Rate Blood Pressure 119/73 O2 Sat by Pulse 95 Oximetry - Reevaluation(s) Reevaluation #1: 05/27/17 01:30 There is suspicion for sepsis with COPD and abnormal vital signs. Patient will be covered with antibiotics. Blood culture and lactic acid has been ordered. EKG Findings - EKG Comments: EKG Findings:: Sinus rhythm and 96. QRS 60. QT 350. QTC 442. Normal axis. Normal QRS. No acute ST change. Medical Decision Making - Medical Decision Making Patient has continued wheezing and tachypnea. Case was discussed in detail with Dr. Leyva who will admit. Patient will stay in the ER pending CT results. - Lab Data Result diagrams: 05/26/17 22:53 05/26/17 22:53 Lab Results 05/26/17 05/26/17 05/26/17 Range/Units 22:04 22:53 22:53 WBC 11.4 H (3.8-10.6) k/uL RBC 4.36 (3.80-5.40) m/uL Hgb 13.0 (11.4-16.0) gm/dL Hct 39.3 (34.0-46.0) % MCV 90.1 (80.0-100.0) fL MCH 29.7 (25.0-35.0) pg MCHC 33.0 (31.0-37.0) g/dL RDW 14.1 (11.5-15.5) % Plt Count 189 (150-450) k/uL Neutrophils % 82 % Lymphocytes % 11 % Monocytes % 5 % Eosinophils % 1 % Basophils % 0 % Neutrophils # 9.4 H (1.3-7.7) k/uL Lymphocytes # 1.2 (1.0-4.8) k/uL Monocytes # 0.5 (0-1.0) k/uL Eosinophils # 0.1 (0-0.7) k/uL Basophils # 0.0 (0-0.2) k/uL PT (9.0-12.0) sec INR (<1.2) APTT (22.0-30.0) sec D-Dimer (<0.60) mg/L FEU Sodium 140 (137-145) mmol/L Potassium 4.2 (3.5-5.1) mmol/L Chloride 99 (98-107) mmol/L Carbon Dioxide 30 (22-30) mmol/L Anion Gap 11 mmol/L BUN 15 (7-17) mg/dL Creatinine 1.00 (0.52-1.04) mg/dL Est GFR (CKD-EPI)AfAm 77 (>60 ml/min/1.73 sqM) Est GFR (CKD-EPI)NonAf 67 (>60 ml/min/1.73 sqM) Glucose 124 H (74-99) mg/dL Plasma Lactic Acid Aneesh (0.7-2.0) mmol/L Calcium 9.0 (8.4-10.2) mg/dL Total Bilirubin 0.3 (0.2-1.3) mg/dL AST 40 H (14-36) U/L ALT 44 (9-52) U/L Alkaline Phosphatase 90 (38-126) U/L Total Protein 6.0 L (6.3-8.2) g/dL Albumin 3.4 L (3.5-5.0) g/dL Urine Color Urine Appearance (Clear) Urine pH (5.0-8.0) Ur Specific [place] (1.001-1.035) Urine Protein (Negative) Urine Glucose (UA) (Negative) Urine Ketones (Negative) Urine Blood (Negative) Urine Nitrite (Negative) Urine Bilirubin (Negative) Urine Urobilinogen (<2.0) mg/dL Ur Leukocyte Esterase (Negative) Urine RBC (0-5) /hpf Urine WBC (0-5) /hpf Urine WBC Clumps (None) /hpf Ur Squamous Epith Cells (0-4) /hpf Urine Bacteria (None) /hpf Hyaline Casts (0-2) /lpf Urine Mucus (None) /hpf Valproic Acid 78.9 ug/mL Influenza Type A RNA Not Detected (Not Detectd) Influenza Type B (PCR) Not Detected (Not Detectd) 05/26/17 05/26/17 05/26/17 Range/Units 22:53 22:53 22:53 WBC (3.8-10.6) k/uL RBC (3.80-5.40) m/uL Hgb (11.4-16.0) gm/dL Hct (34.0-46.0) % MCV (80.0-100.0) fL MCH (25.0-35.0) pg MCHC (31.0-37.0) g/dL RDW (11.5-15.5) % Plt Count (150-450) k/uL Neutrophils % % Lymphocytes % % Monocytes % % Eosinophils % % Basophils % % Neutrophils # (1.3-7.7) k/uL Lymphocytes # (1.0-4.8) k/uL Monocytes # (0-1.0) k/uL Eosinophils # (0-0.7) k/uL Basophils # (0-0.2) k/uL PT 10.0 (9.0-12.0) sec INR 1.0 (<1.2) APTT 22.2 (22.0-30.0) sec D-Dimer 0.65 H (<0.60) mg/L FEU Sodium (137-145) mmol/L Potassium (3.5-5.1) mmol/L Chloride (98-107) mmol/L Carbon Dioxide (22-30) mmol/L Anion Gap mmol/L BUN (7-17) mg/dL Creatinine (0.52-1.04) mg/dL Est GFR (CKD-EPI)AfAm (>60 ml/min/1.73 sqM) Est GFR (CKD-EPI)NonAf (>60 ml/min/1.73 sqM) Glucose (74-99) mg/dL Plasma Lactic Acid Aneesh 1.3 (0.7-2.0) mmol/L Calcium (8.4-10.2) mg/dL Total Bilirubin (0.2-1.3) mg/dL AST (14-36) U/L ALT (9-52) U/L Alkaline Phosphatase (38-126) U/L Total Protein (6.3-8.2) g/dL Albumin (3.5-5.0) g/dL Urine Color Urine Appearance (Clear) Urine pH (5.0-8.0) Ur Specific [place] (1.001-1.035) Urine Protein (Negative) Urine Glucose (UA) (Negative) Urine Ketones (Negative) Urine Blood (Negative) Urine Nitrite (Negative) Urine Bilirubin (Negative) Urine Urobilinogen (<2.0) mg/dL Ur Leukocyte Esterase (Negative) Urine RBC (0-5) /hpf Urine WBC (0-5) /hpf Urine WBC Clumps (None) /hpf Ur Squamous Epith Cells (0-4) /hpf Urine Bacteria (None) /hpf Hyaline Casts (0-2) /lpf Urine Mucus (None) /hpf Valproic Acid ug/mL Influenza Type A RNA (Not Detectd) Influenza Type B (PCR) (Not Detectd) 05/27/17 Range/Units 00:00 WBC (3.8-10.6) k/uL RBC (3.80-5.40) m/uL Hgb (11.4-16.0) gm/dL Hct (34.0-46.0) % MCV (80.0-100.0) fL MCH (25.0-35.0) pg MCHC (31.0-37.0) g/dL RDW (11.5-15.5) % Plt Count (150-450) k/uL Neutrophils % % Lymphocytes % % Monocytes % % Eosinophils % % Basophils % % Neutrophils # (1.3-7.7) k/uL Lymphocytes # (1.0-4.8) k/uL Monocytes # (0-1.0) k/uL Eosinophils # (0-0.7) k/uL Basophils # (0-0.2) k/uL PT (9.0-12.0) sec INR (<1.2) APTT (22.0-30.0) sec D-Dimer (<0.60) mg/L FEU Sodium (137-145) mmol/L Potassium (3.5-5.1) mmol/L Chloride (98-107) mmol/L Carbon Dioxide (22-30) mmol/L Anion Gap mmol/L BUN (7-17) mg/dL Creatinine (0.52-1.04) mg/dL Est GFR (CKD-EPI)AfAm (>60 ml/min/1.73 sqM) Est GFR (CKD-EPI)NonAf (>60 ml/min/1.73 sqM) Glucose (74-99) mg/dL Plasma Lactic Acid Aneesh (0.7-2.0) mmol/L Calcium (8.4-10.2) mg/dL Total Bilirubin (0.2-1.3) mg/dL AST (14-36) U/L ALT (9-52) U/L Alkaline Phosphatase (38-126) U/L Total Protein (6.3-8.2) g/dL Albumin (3.5-5.0) g/dL Urine Color [place] Urine Appearance Turbid H (Clear) Urine pH 5.5 (5.0-8.0) Ur Specific [place] 1.027 (1.001-1.035) Urine Protein 2+ H (Negative) Urine Glucose (UA) Negative (Negative) Urine Ketones Trace H (Negative) Urine Blood Negative (Negative) Urine Nitrite Negative (Negative) Urine Bilirubin 1+ H (Negative) Urine Urobilinogen 4.0 (<2.0) mg/dL Ur Leukocyte Esterase Moderate H (Negative) Urine RBC 7 H (0-5) /hpf Urine WBC 16 H (0-5) /hpf Urine WBC Clumps Few H (None) /hpf Ur Squamous Epith Cells 17 H (0-4) /hpf Urine Bacteria Occasional H (None) /hpf Hyaline Casts 12 H (0-2) /lpf Urine Mucus Many H (None) /hpf Valproic Acid ug/mL Influenza Type A RNA (Not Detectd) Influenza Type B (PCR) (Not Detectd) - Radiology Data Radiology results: image reviewed (Chest x-ray shows some mild interstitial prominence.) Disposition Clinical Impression: Acute exacerbation of chronic obstructive airways disease, Sepsis Disposition: ADMITTED IP TO THIS HOSP Condition: Serious Referrals: Beny Leyva MD [Primary Care Provider] - 1-2 days Decision Time: 01:30
[2017-05-26] MEDS ORDERED: SODIUM CHLORIDE 0.9% 500 ML IV SCH (22:30)
[2017-05-26 23:03] LABS: Basophils % (A) 0 %; Eosinophils # (A) 0.1 k/uL (0-0.7); Eosinophils % (A) 1 %; HCT 39.3 % (34.0-46.0); Lymphocytes # (A) 1.2 k/uL (1.0-4.8); Lymphocytes % (A) 11 %; MCH 29.7 pg (25.0-35.0); MCV 90.1 fL (80.0-100.0); Mean Platelet Volume 9.1; Monocytes # (A) 0.5 k/uL (0-1.0); Monocytes % (A) 5 %; Neutrophils # (A) 9.4 k/uL (1.3-7.7); Neutrophils % (A) 82 %; Platelet Count 189 k/uL (150-450); RBC 4.36 m/uL (3.80-5.40); RDW 14.1 % (11.5-15.5); WBC 11.4 k/uL (3.8-10.6)
[2017-05-26 23:11] LABS: Albumin 3.4 g/dL (3.5-5.0); Potassium 4.2 mmol/L (3.5-5.1); Total Bilirubin 0.3 mg/dL (0.2-1.3)
[2017-05-26 23:15] LABS: Partial Thromboplastin Time 22.2 sec (22.0-30.0)
[2017-05-26 23:16] LABS: Valproic Acid (Depakene) 78.9 ug/mL
--- NOTE | 2017-05-27 00:07 | XR ---
EXAM: XR Chest, 2 Views CLINICAL HISTORY: Fever TECHNIQUE: Frontal and lateral views of the chest. COMPARISON: No relevant prior studies available. FINDINGS: Prominence the cardiac silhouette. The costophrenic angles are sharp. Mild prominence of interstitial markings. Possible viral process cannot be excluded. No evidence for consolidation or effusions IMPRESSION: Mild prominence the interstitial markings raises the possibility of viral process
[2017-05-27 00:20] LABS: Appearance,Urine Turbid (Clear); Bacteria,Urine Occasional /hpf; Bilirubin,Urine 1+ (Negative); Blood,Urine Negative (Negative); Color,Urine Orange; Glucose,Urine (UA) Negative (Negative); Hyaline Casts,Urine 12 /lpf (0-2); Ketones,Urine Trace (Negative); Leukocyte Esterase,Urine Moderate (Negative); Mucus,Urine Many /hpf; Nitrite,Urine Negative (Negative); PH, Urine 5.5 (5.0-8.0); Protein,Urine 2+ (Negative); RBC,Urine 7 /hpf (0-5); Specific Gravity,Urine 1.027 (1.001-1.035); Squamous Epithelial Cell,Urine 17 /hpf (0-4); WBC,Urine 16 /hpf (0-5)
[2017-05-27] MEDS ORDERED: IPRATROPIUM-ALBUTEROL 3 ML NEB INHALATION STA (00:51)
[2017-05-27] MEDS ORDERED: RX INFO: IV CONTRAST WAS GIVEN 1 EACH MISC MISCELLANE PRN (01:26)
[2017-05-27] MEDS ORDERED: AZITHROMYCIN 500 MG in SODIUM CHLORIDE 0.9% 250 ML IVPB STA (01:31)
[2017-05-27] MEDS ORDERED: cefTRIAXone IN SWFI 1,000 MG/10 ML SYRINGE IVP STA (01:31)
[2017-05-27] MEDS ORDERED: IPRATROPIUM-ALBUTEROL 3 ML NEB INHALATION PRN (01:32)
[2017-05-27] MEDS: SODIUM CHLORIDE 0.9% 1,000 ML IV SCH ×2 (01:58→12:25)
--- NOTE | 2017-05-27 02:07 | CT ---
EXAM: CT Angiography Chest With Intravenous Contrast CLINICAL HISTORY: Shortness of breath dyspnea TECHNIQUE: Axial computed tomographic angiography images of the chest with intravenous contrast using pulmonary embolism protocol. DLP is 639.4 mGy- cm. This CT exam was performed using one or more of the following dose reduction techniques: automated exposure control, adjustment of the mA and/or kV according to patient size, and/or use of iterative reconstruction technique. MIP reconstructed images were created and reviewed. Coronal and sagittal reformatted images were created and reviewed. COMPARISON: No relevant prior studies available. FINDINGS: Pulmonary arteries: Unremarkable. No pulmonary embolism. Aorta: No acute findings. No thoracic aortic aneurysm. Lungs: Patchy areas of consolidation noted in the left and right upper lobe. This is superimposed upon chronic interstitial changes. Areas of consolidation with air bronchograms are noted in the left and right lower lobes as well. Pleural space: Unremarkable. No significant effusion. No pneumothorax. Heart: Unremarkable. No cardiomegaly. No significant pericardial effusion. No evidence of RV dysfunction. Bones/joints: No acute fracture. No dislocation. Soft tissues: Unremarkable. Lymph nodes: Unremarkable. No enlarged lymph nodes. IMPRESSION: No pulmonary embolism. Patchy upper lobe infiltrates with areas of consolidation in the lower lobes superimposed upon chronic interstitial changes
[2017-05-27] MEDS: methylPREDNISolone SOD SUCCI 125 MG/2 ML VIAL IV SCH ×4 (06:04→23:02)
[2017-05-27 06:32] LABS: Glucose,Whole Blood 191 mg/dL (75-99)
[2017-05-27] MEDS: INSULIN ASPART 100 UNIT/ML 1 ML 10 ML VIAL SQ SCH ×4 (06:45→21:14)
--- NOTE | 2017-05-27 07:02 | P.HPIM ---
History of Present Illness H&P Date: 05/27/17 Chief Complaint: Shortness of breath. This is a history of physical and a 51-year-old white female with known history of seizure disorder. She takes Clozaril. The history is somewhat poorly obtainable from the patient who is lethargic this morning. I do suspect element of sleep apnea. However history gleaned from the chart shows several- day history of worsening shortness of breath. She still continues to smoke at least 1 pack per day. I've had long discussions with her and as an outpatient, about tobacco cessation. Again, lethargy with shortness of breath is noted. CT angiogram did not show significant pulmonary embolus. However, she is appropriately admitted for sepsis with COPD exacerbation. Probable viral element is also noted on x-ray. However, she will be treated for bacterial perspective. Review of Systems Constitutional: Reports fever, Denies weakness Eyes: denies blurred vision, denies pain Ears, nose, mouth and throat: Denies headache, Denies sore throat Cardiovascular: Denies chest pain Respiratory: Reports congestion, Reports cough, Reports dyspnea Gastrointestinal: Denies abdominal pain, Denies diarrhea, Denies nausea, Denies vomiting Genitourinary: Denies dysuria, Denies hematuria Musculoskeletal: Denies myalgias Integumentary: Denies pruritus, Denies rash Psychiatric: Reports anxiety, Reports depression, Denies suicidal ideation Endocrine: Denies fatigue, Denies weight change Past Medical History Past Medical History: Seizure Disorder Additional Past Medical History / Comment(s): cellulitis on left leg, pt states she had a tick in there since sep 2016 and has had the rash since History of Any Multi-Drug Resistant Organisms: None Reported Past Surgical History: No Surgical Hx Reported Past Anesthesia/Blood Transfusion Reactions: No Reported Reaction Past Psychological History: Schizophrenia Smoking Status: Current every day smoker Past Alcohol Use History: None Reported Past Drug Use History: None Reported - Past Family History Mother History Unknown: Yes Additional Family Medical History / Comment(s): pt stated that her mother of "bad heart" pt is not sure if it was a heart attack ot heart failure Father Family Medical History: Diabetes Mellitus Medications and Allergies Home Medications Medication Instructions Recorded Confirmed Type Divalproex Sodium [Depakote] 500 mg PO BID 10/05/16 05/26/17 History cloZAPine [Clozaril] 100 mg PO QAM 10/05/16 05/26/17 History cloZAPine [Clozaril] 200 mg PO HS 10/05/16 05/26/17 History Allergies Allergy/AdvReac Type Severity Reaction Status Date / Time No Known Allergies Allergy Verified 05/26/17 22:31 Physical Exam Vitals: Vital Signs Temp Pulse Pulse Resp BP BP Pulse Ox 05/27/17 03:26 76 24 05/27/17 02:31 98.1 F 75 24 110/70 91 L 05/27/17 02:26 98.7 F 93 33 H 98/54 94 L 05/27/17 01:28 78 30 H 122/98 94 L 05/27/17 01:06 81 31 H 119/73 95 05/27/17 01:05 80 05/27/17 00:54 80 05/27/17 00:44 100.8 F H 82 38 H 119/73 93 L 05/27/17 00:00 101.3 F H 89 38 H 125/55 92 L 05/26/17 23:02 103.2 F H 99 44 H 139/56 93 L 05/26/17 22:40 108 H 05/26/17 22:04 103.2 F H 107 H 24 102/59 89 L Intake and Output 05/26/17 05/26/17 05/27/17 14:59 22:59 06:59 Intake Total 300 Balance 300 Intake: IV 300 Sodium Chloride 0.9% 1, 300 000 ml @ 100 mls/hr IV . Q10H [facility] Rx#:[id number] Other: Voiding Method Toilet Weight 99.79 kg 104.2 kg - Constitutional General appearance: obese - EENT Eyes: EOMI - Neck Neck: no lymphadenopathy - Respiratory Respiratory: bilateral: diminished - Cardiovascular Rhythm: regular Heart sounds: normal: S1, S2 Abnormal Heart Sounds: no S3 Gallop - Gastrointestinal General gastrointestinal: soft, no tenderness - Neurologic Lethargic this morning. - Psychiatric Psychiatric: A&O x's 3 Results CBC & Chem 7: 05/26/17 22:53 05/26/17 22:53 Labs: Abnormal Lab Results - Last 24 Hours (Table) 05/26/17 05/26/17 05/26/17 Range/Units 22:53 22:53 22:53 WBC 11.4 H (3.8-10.6) k/uL Neutrophils # 9.4 H (1.3-7.7) k/uL D-Dimer 0.65 H (<0.60) mg/L FEU Glucose 124 H (74-99) mg/dL POC Glucose (mg/dL) (75-99) mg/dL AST 40 H (14-36) U/L Total Protein 6.0 L (6.3-8.2) g/dL Albumin 3.4 L (3.5-5.0) g/dL Urine Appearance (Clear) Urine Protein (Negative) Urine Ketones (Negative) Urine Bilirubin (Negative) Ur Leukocyte Esterase (Negative) Urine RBC (0-5) /hpf Urine WBC (0-5) /hpf Urine WBC Clumps (None) /hpf Ur Squamous Epith Cells (0-4) /hpf Urine Bacteria (None) /hpf Hyaline Casts (0-2) /lpf Urine Mucus (None) /hpf 05/27/17 05/27/17 Range/Units 00:00 06:28 WBC (3.8-10.6) k/uL Neutrophils # (1.3-7.7) k/uL D-Dimer (<0.60) mg/L FEU Glucose (74-99) mg/dL POC Glucose (mg/dL) 191 H (75-99) mg/dL AST (14-36) U/L Total Protein (6.3-8.2) g/dL Albumin (3.5-5.0) g/dL Urine Appearance Turbid H (Clear) Urine Protein 2+ H (Negative) Urine Ketones Trace H (Negative) Urine Bilirubin 1+ H (Negative) Ur Leukocyte Esterase Moderate H (Negative) Urine RBC 7 H (0-5) /hpf Urine WBC 16 H (0-5) /hpf Urine WBC Clumps Few H (None) /hpf Ur Squamous Epith Cells 17 H (0-4) /hpf Urine Bacteria Occasional H (None) /hpf Hyaline Casts 12 H (0-2) /lpf Urine Mucus Many H (None) /hpf Thrombosis Risk Factor Assmnt - Choose All That Apply Any of the Below Risk Factors Present?: Yes Each Factor Represents 1 point: Age 41-60 years, Obesity (BMI >25), Sepsis (< 1month), Swollen legs (current) Thrombosis Risk Factor Assessment Total Risk Factor Score: 4 Thrombosis Risk Factor Assessment Level: Moderate Risk Assessment and Plan (1) Lethargy Current Visit: Yes Status: Acute Code(s): R53.83 - OTHER FATIGUE SNOMED Code(s): 633225893 (2) Acute exacerbation of chronic obstructive airways disease Current Visit: Yes Status: Acute Code(s): J44.1 - CHRONIC OBSTRUCTIVE PULMONARY DISEASE W (ACUTE) EXACERBATION SNOMED Code(s): 254177989 (3) Sepsis Current Visit: Yes Status: Acute Code(s): A41.9 - SEPSIS, UNSPECIFIED ORGANISM SNOMED Code(s): 73459293 (4) Seizure disorder Current Visit: No Status: Chronic Code(s): G40.909 - EPILEPSY, UNSP, NOT INTRACTABLE, WITHOUT STATUS EPILEPTICUS SNOMED Code(s): 963697373 Plan: Go ahead and place on appropriate treatment required pneumonia with COPD exacerbation protocol. Reconcile home medications. Watch vital signs closely. Question need for pulmonology if no improvement. Breathing treatments with steroid treatment will be instituted. See orders otherwise. The patient is a full code. Check CBC and CMP in a.m. Time with Patient: Greater than 30
[2017-05-27] MEDS: IPRATROPIUM-ALBUTEROL 3 ML NEB INHALATION SCH ×4 (08:49→20:33)
[2017-05-27] MEDS ORDERED: AZITHROMYCIN 500 MG in SODIUM CHLORIDE 0.9% 250 ML IVPB SCH (09:00)
[2017-05-27] MEDS: cefTRIAXone IN SWFI 1,000 MG/10 ML SYRINGE IVP SCH ×2 (10:37→21:14)
[2017-05-27] MEDS: DIVALPROEX 500 MG TABLET.DR PO SCH ×2 (10:38→21:14)
[2017-05-27] MEDS: cloZAPine 100 MG TAB PO SCH ×2 (10:38→21:14)
[2017-05-27 11:44] LABS: Glucose,Whole Blood 154 mg/dL (75-99)
[2017-05-27 16:39] LABS: Glucose,Whole Blood 147 mg/dL (75-99)
[2017-05-27 20:57] LABS: Glucose,Whole Blood 202 mg/dL (75-99)
[2017-05-28] MEDS: SODIUM CHLORIDE 0.9% 1,000 ML IV SCH ×3 (00:30→15:41)
[2017-05-28 05:58] LABS: Glucose,Whole Blood 188 mg/dL (75-99)
[2017-05-28 06:21] LABS: HCT 35.7 % (34.0-46.0); HGB 11.9 gm/dL (11.4-16.0); MCH 30.5 pg (25.0-35.0); MCHC 33.4 g/dL (31.0-37.0); MCV 91.2 fL (80.0-100.0); Mean Platelet Volume 9.6; Platelet Count 192 k/uL (150-450); RBC 3.91 m/uL (3.80-5.40); RDW 14.3 % (11.5-15.5); WBC 15.5 k/uL (3.8-10.6)
[2017-05-28] MEDS: INSULIN ASPART 100 UNIT/ML 1 ML 10 ML VIAL SQ SCH ×4 (06:39→20:04)
[2017-05-28] MEDS: methylPREDNISolone SOD SUCCI 125 MG/2 ML VIAL IV SCH ×4 (06:39→23:21)
--- NOTE | 2017-05-28 07:39 | P.PN ---
Subjective Progress Note Date: 05/28/17 Principal diagnosis: This is a continue pressure 51-year-old white female essentially admitted for COPD exacerbation with sepsis element. Lower 70 rashes noted. She's had insect bite in the past. The wound does look as though it is not necessarily festering. No fever or chills. Mild itch is noted. Objective - Vital Signs Vital signs: Vital Signs Temp 97.9 F 05/28/17 04:00 Pulse 83 05/28/17 04:00 Resp 18 05/28/17 04:00 BP 126/68 05/28/17 04:00 Pulse Ox 91 L 05/28/17 04:00 Intake & Output 05/27/17 05/28/17 05/28/17 18:59 06:59 18:59 Intake Total 840 10 Balance 840 10 Weight 104.8 kg Intake: IV 10 Sodium Chloride 0.9% 1, 10 000 ml @ 100 mls/hr IV . Q10H [facility] Rx#:[id number] Oral 840 Other: Voiding Method Toilet Toilet # Voids 0 1 # Bowel Movements 0 - Constitutional General appearance: Present: obese - EENT Eyes: Absent: abnormal pupil - Respiratory Respiratory: bilateral: wheezing - Cardiovascular Rhythm: regular Heart sounds: normal: S1, S2 Abnormal Heart Sounds: Absent: S3 Gallop - Gastrointestinal General gastrointestinal: Present: soft. Absent: tenderness - Integumentary Integumentary: Present: rash - Neurologic Neurologic: Present: CNII-XII intact - Labs CBC & Chem 7: 05/28/17 06:03 05/26/17 22:53 Labs: Abnormal Lab Results - Last 24 Hours (Table) 05/27/17 05/27/17 05/27/17 Range/Units 11:33 16:21 20:54 WBC (3.8-10.6) k/uL POC Glucose (mg/dL) 154 H 147 H 202 H (75-99) mg/dL 05/28/17 05/28/17 Range/Units 05:56 06:03 WBC 15.5 H (3.8-10.6) k/uL POC Glucose (mg/dL) 188 H (75-99) mg/dL Microbiology - Last 24 Hours (Table) 05/26/17 22:53 Blood Culture - Preliminary Blood No Growth after 24 hours 05/27/17 00:00 Urine Culture - Preliminary Urine,Voided Assessment and Plan (1) Lethargy Current Visit: Yes Status: Acute Code(s): R53.83 - OTHER FATIGUE SNOMED Code(s): 381608464 (2) Acute exacerbation of chronic obstructive airways disease Current Visit: Yes Status: Acute Code(s): J44.1 - CHRONIC OBSTRUCTIVE PULMONARY DISEASE W (ACUTE) EXACERBATION SNOMED Code(s): 461598117 (3) Sepsis Current Visit: Yes Status: Acute Code(s): A41.9 - SEPSIS, UNSPECIFIED ORGANISM SNOMED Code(s): 32865096 (4) Seizure disorder Current Visit: No Status: Chronic Code(s): G40.909 - EPILEPSY, UNSP, NOT INTRACTABLE, WITHOUT STATUS EPILEPTICUS SNOMED Code(s): 483140277 (5) Cellulitis Current Visit: No Status: Acute Code(s): L03.90 - CELLULITIS, UNSPECIFIED SNOMED Code(s): 473122818 Plan: Continue Rocephin at this time. Otherwise, Silvadene cream topically daily to the left lower extremity. Check CBC and CMP in a.m. Dr. Preston's group will covering for the weekend. Anticipate discharge in the next 48 hours or so. See orders otherwise. Time with Patient: Less than 30
[2017-05-28 08:16] LABS: ALT 41 U/L (9-52); AST 37 U/L (14-36); Albumin 3.2 g/dL (3.5-5.0); Alkaline Phosphatase 73 U/L (38-126); Anion Gap 14 mmol/L; Blood Urea Nitrogen 16 mg/dL (7-17); Calcium 9.3 mg/dL (8.4-10.2); Carbon Dioxide 28 mmol/L (22-30); Chloride 104 mmol/L (98-107); Glucose 190 mg/dL (74-99); Potassium 4.7 mmol/L (3.5-5.1); Sodium 146 mmol/L (137-145); Total Bilirubin 0.2 mg/dL (0.2-1.3); Total Protein 5.8 g/dL (6.3-8.2)
[2017-05-28] MEDS: IPRATROPIUM-ALBUTEROL 3 ML NEB INHALATION SCH ×4 (08:24→19:24)
[2017-05-28] MEDS: DIVALPROEX 500 MG TABLET.DR PO SCH ×2 (10:34→20:04)
[2017-05-28] MEDS: cloZAPine 100 MG TAB PO SCH ×2 (10:34→20:03)
[2017-05-28] MEDS: cefTRIAXone IN SWFI 1,000 MG/10 ML SYRINGE IVP SCH ×2 (10:35→20:48)
[2017-05-28 11:58] LABS: Glucose,Whole Blood 161 mg/dL (75-99)
[2017-05-28 17:13] LABS: Glucose,Whole Blood 233 mg/dL (75-99)
[2017-05-28 19:51] LABS: Glucose,Whole Blood 237 mg/dL (75-99)
[2017-05-29] MEDS: methylPREDNISolone SOD SUCCI 125 MG/2 ML VIAL IV SCH (05:26)
[2017-05-29] MEDS ORDERED: LORazepam 2 MG/ML INJ ONE (06:25)
[2017-05-29] MEDS ORDERED: EPINEPHrine 10 ML SYRINGE (0.1 MG/ML) ONE (06:40)
[2017-05-29] MEDS ORDERED: SODIUM BICARB 8.4% 50 ML SYR (1 MEQ/ML) ONE (06:40)
[2017-05-29] MEDS ORDERED: PROPOFOL 100 ML IV ONE (07:04)
[2017-05-29 07:17] LABS: HCT 35.3 % (34.0-46.0); HGB 11.2 gm/dL (11.4-16.0); Hypochromasia Moderate; MCH 30.8 pg (25.0-35.0); MCHC 31.8 g/dL (31.0-37.0); Mean Platelet Volume 9.3; Platelet Count 188 k/uL (150-450); RBC 3.65 m/uL (3.80-5.40); RDW 14.1 % (11.5-15.5)
[2017-05-29 07:20] LABS: MCV 96.7 fL (80.0-100.0)
[2017-05-29 07:21] LABS: ABG Base Excess -4.7 mmol/L; ABG HCO3 23 mmol/L (21-25); ABG Oxygen Saturation 99.4 % (94-97); ABG PCO2 59 mmHg (35-45); ABG PH 7.21 (7.35-7.45); ABG PO2 232 mmHg (83-108); ABG TCO2 25 mmol/L (19-24)
[2017-05-29 07:26] LABS: ALT 43 U/L (9-52); AST 50 U/L (14-36); Albumin 2.8 g/dL (3.5-5.0); Alkaline Phosphatase 66 U/L (38-126); Anion Gap 20 mmol/L; Blood Urea Nitrogen 13 mg/dL (7-17); Calcium 8.3 mg/dL (8.4-10.2); Carbon Dioxide 20 mmol/L (22-30); Chloride 105 mmol/L (98-107); Glucose 299 mg/dL (74-99); Potassium 4.6 mmol/L (3.5-5.1); Sodium 145 mmol/L (137-145); Total Bilirubin <0.1 mg/dL (0.2-1.3); Total Protein 5.1 g/dL (6.3-8.2)
[2017-05-29 07:27] LABS: Glucose,Whole Blood 198 mg/dL (75-99)
[2017-05-29] MEDS: IPRATROPIUM-ALBUTEROL 3 ML NEB INHALATION SCH ×5 (07:32→23:09)
--- NOTE | 2017-05-29 07:40 | XR ---
EXAMINATION TYPE: XR chest 1V portable DATE OF EXAM: 05/29/2017 HISTORY: tube placement. REFERENCE: Previous study dated 05/26/2017. FINDINGS: The patient has been intubated. ET tube is in satisfactory position overlying the T3-4 disc level. An NG tube is been passed its tip is coiled in stomach. The heart is enlarged. There is vascular congestion and pulmonary edema. I suspect small effusions. IMPRESSION: WORSENING CHANGES OF PULMONARY EDEMA.
[2017-05-29 07:58] LABS: Glucose,Whole Blood 241 mg/dL (75-99)
[2017-05-29 08:04] LABS: Magnesium 2.1 mg/dL (1.6-2.3); Phosphorus 7.9 mg/dL (2.5-4.5)
[2017-05-29] MEDS: SODIUM CHLORIDE 0.9% 1,000 ML IV SCH ×2 (09:03→15:02)
[2017-05-29] MEDS: cefTRIAXone IN SWFI 1,000 MG/10 ML SYRINGE IVP SCH ×2 (09:05→21:23)
[2017-05-29] MEDS: INSULIN ASPART 100 UNIT/ML 1 ML 10 ML VIAL SQ SCH ×3 (09:11→18:11)
--- NOTE | 2017-05-29 10:27 | P.CNPUL ---
History of Present Illness Consult date: 05/29/17 Reason for consult: other Chief complaint: Cardiopulmonary arrest History of present illness: Consult dated 05/29/2017 This is a 51-year-old female who we have not seen before. The patient has a history of seizure disorder and apparently was seen by the primary service and admitted with a diagnosis of possible sepsis COPD exacerbation and pneumonia. Again we've not seen her. She apparently came into the emergency room on May 26. Apparently she was said to be discharged and unfortunately developed a cardiopulmonary arrest. The rest of placed early this morning. She had about 15-20 minutes of cardiopulmonary resuscitation with eventual return us spontaneous circulation. The patient was seen initially by the primary service and she was CT angiogram which was negative for pulmonary embolism. They thought that her diagnosis was sepsis and COPD exacerbation possibly viral pneumonia. This is an obese female with a history of seizure disorder and apparently also has a history of cellulitis of the left leg. Only medication at home was Depakote and Clozaril. She has no ALLERGIES. When she came into the hospital, she came in with a elevated temperature of 103.2 a pulse of 99 respirations of 44 and a blood pressure 139/56. Her saturations are 93% but I' m not sure if she was on supplemental oxygen at that time. Currently, she is on the volume assist control modality, rate of 20 tidal volume 400 FiO2 60% PEEP of 5. Arterial blood gases on 100% and a respiratory rate of 14 show a PaO2 of 232 a PaCO2 of 59 and a pH of 7.21. The patient's getting saline at 100 mL an hour and propofol at 40 mics per kilogram per minute. Chest x-ray looks horrible. This diffuse bilateral infiltrates were previous x-ray only showed some interstitial changes. An art line is being placed as we speak. She has 3 peripheral IVs. Review of Systems ROS unobtainable: due to endotracheal tube Past Medical History Past Medical History: Seizure Disorder Additional Past Medical History / Comment(s): cellulitis on left leg, pt states she had a tick in there since sep 2016 and has had the rash since History of Any Multi-Drug Resistant Organisms: None Reported Past Surgical History: No Surgical Hx Reported Past Anesthesia/Blood Transfusion Reactions: No Reported Reaction Past Psychological History: Schizophrenia Smoking Status: Current every day smoker Past Alcohol Use History: None Reported Past Drug Use History: None Reported - Past Family History Mother History Unknown: Yes Additional Family Medical History / Comment(s): pt stated that her mother of "bad heart" pt is not sure if it was a heart attack ot heart failure Father Family Medical History: Diabetes Mellitus Medications and Allergies Home Medications Medication Instructions Recorded Confirmed Type Divalproex Sodium [Depakote] 500 mg PO BID 10/05/16 05/26/17 History cloZAPine [Clozaril] 100 mg PO QAM 10/05/16 05/26/17 History cloZAPine [Clozaril] 200 mg PO HS 10/05/16 05/26/17 History Allergies Allergy/AdvReac Type Severity Reaction Status Date / Time No Known Allergies Allergy Verified 05/26/17 22:31 Physical Exam Osteopathic Statement: *. No significant issues noted on an osteopathic structural exam other than those noted in the History and Physical/Consult. Vitals: Vital Signs Temp Pulse Pulse Resp BP BP Pulse Ox 05/29/17 09:00 79 19 90/45 93 L 05/29/17 08:30 83 22 97/43 93 L 05/29/17 08:03 95 05/29/17 08:00 98.7 F 85 23 89/46 94 L 05/29/17 07:35 92 05/29/17 07:30 94 23 116/53 96 05/29/17 07:00 141 H 10 L 145/67 98 05/29/17 06:58 119 H 0 L 05/28/17 21:20 98.0 F 78 20 128/66 92 L 05/28/17 19:32 88 05/28/17 19:24 84 05/28/17 16:02 18 05/28/17 15:53 80 05/28/17 15:42 84 05/28/17 15:00 97.9 F 84 16 133/81 93 L 05/28/17 12:09 97.8 F 81 16 159/79 94 L 05/28/17 12:02 80 05/28/17 11:51 80 Intake and Output 05/28/17 05/29/17 05/29/17 22:59 06:59 14:59 Intake Total 300 800 212.5 Output Total 65 Balance 300 800 147.5 Intake: IV 300 800 200 Sodium Chloride 0.9% 1, 300 800 200 000 ml @ 100 mls/hr IV . Q10H [facility] Rx#:[id number] Intake, IV Titration 12.5 Amount Propofol 100 ml As IV . 12.5 [facility] Rx#:[id number] Output: Urine 65 Other: Voiding Method Toilet Indwelling Catheter # Voids 1 2 Weight 104.8 kg No acute distress, sedated, with an orally placed endotracheal tube and NG tube HEENT examination is grossly unremarkable. Mucous membranes are moist. Neck supple. Full range of motion. No adenopathy thyromegaly or neck vein distention. Cardiovascular examination reveals regular rhythm rate. S1-S2 normal. No S3 or S4. No discernible murmur noted. Heart sounds are distant. Lungs reveal coarse bilateral breath sounds. Breath sounds are equal. No wheezes. No crackles. Abdomen soft bowel sounds are heard. No masses or tenderness. Extremities are intact. No cyanosis or clubbing. Lower extremity edema is noted. . Skin is without rash or lesion. Neurologic examination could not be adequately assessed Results - Laboratory Findings CBC and BMP: 05/29/17 07:08 05/29/17 07:08 ABG ABG pH 7.21 (7.35-7.45) L 05/29/17 07:19 ABG pCO2 59 mmHg (35-45) H 05/29/17 07:19 ABG pO2 232 mmHg (83-108) H 05/29/17 07:19 ABG O2 Saturation 99.4 % (94-97) H 05/29/17 07:19 PT/INR, D-dimer PT 10.0 sec (9.0-12.0) 05/26/17 22:53 INR 1.0 (<1.2) 05/26/17 22:53 D-Dimer 0.65 mg/L FEU (<0.60) H 05/26/17 22:53 Abnormal lab findings: Abnormal Labs 05/26/17 05/26/17 05/26/17 22:53 22:53 22:53 WBC 11.4 H RBC Hgb Neutrophils # 9.4 H D-Dimer 0.65 H ABG pH ABG pCO2 ABG pO2 ABG Total CO2 ABG O2 Saturation Sodium Carbon Dioxide Glucose 124 H POC Glucose (mg/dL) Plasma Lactic Acid Aneesh Calcium Phosphorus Total Bilirubin AST 40 H Total Protein 6.0 L Albumin 3.4 L Urine Appearance Urine Protein Urine Ketones Urine Bilirubin Ur Leukocyte Esterase Urine RBC Urine WBC Urine WBC Clumps Ur Squamous Epith Cells Urine Bacteria Hyaline Casts Urine Mucus 05/27/17 05/27/17 05/27/17 00:00 06:28 11:33 WBC RBC Hgb Neutrophils # D-Dimer ABG pH ABG pCO2 ABG pO2 ABG Total CO2 ABG O2 Saturation Sodium Carbon Dioxide Glucose POC Glucose (mg/dL) 191 H 154 H Plasma Lactic Acid Aneesh Calcium Phosphorus Total Bilirubin AST Total Protein Albumin Urine Appearance Turbid H Urine Protein 2+ H Urine Ketones Trace H Urine Bilirubin 1+ H Ur Leukocyte Esterase Moderate H Urine RBC 7 H Urine WBC 16 H Urine WBC Clumps Few H Ur Squamous Epith Cells 17 H Urine Bacteria Occasional H Hyaline Casts 12 H Urine Mucus Many H 05/27/17 05/27/17 05/28/17 16:21 20:54 05:56 WBC RBC Hgb Neutrophils # D-Dimer ABG pH ABG pCO2 ABG pO2 ABG Total CO2 ABG O2 Saturation Sodium Carbon Dioxide Glucose POC Glucose (mg/dL) 147 H 202 H 188 H Plasma Lactic Acid Aneesh Calcium Phosphorus Total Bilirubin AST Total Protein Albumin Urine Appearance Urine Protein Urine Ketones Urine Bilirubin Ur Leukocyte Esterase Urine RBC Urine WBC Urine WBC Clumps Ur Squamous Epith Cells Urine Bacteria Hyaline Casts Urine Mucus 05/28/17 05/28/17 05/28/17 06:03 06:03 11:43 WBC 15.5 H RBC Hgb Neutrophils # D-Dimer ABG pH ABG pCO2 ABG pO2 ABG Total CO2 ABG O2 Saturation Sodium 146 H Carbon Dioxide Glucose 190 H POC Glucose (mg/dL) 161 H Plasma Lactic Acid Aneesh Calcium Phosphorus Total Bilirubin AST 37 H Total Protein 5.8 L Albumin 3.2 L Urine Appearance Urine Protein Urine Ketones Urine Bilirubin Ur Leukocyte Esterase Urine RBC Urine WBC Urine WBC Clumps Ur Squamous Epith Cells Urine Bacteria Hyaline Casts Urine Mucus 05/28/17 05/28/17 05/29/17 17:05 19:49 06:37 WBC RBC Hgb Neutrophils # D-Dimer ABG pH ABG pCO2 ABG pO2 ABG Total CO2 ABG O2 Saturation Sodium Carbon Dioxide Glucose POC Glucose (mg/dL) 233 H 237 H 198 H Plasma Lactic Acid Aneesh Calcium Phosphorus Total Bilirubin AST Total Protein Albumin Urine Appearance Urine Protein Urine Ketones Urine Bilirubin Ur Leukocyte Esterase Urine RBC Urine WBC Urine WBC Clumps Ur Squamous Epith Cells Urine Bacteria Hyaline Casts Urine Mucus 05/29/17 05/29/17 05/29/17 07:08 07:08 07:08 WBC 17.0 H RBC 3.65 L Hgb 11.2 L Neutrophils # D-Dimer ABG pH ABG pCO2 ABG pO2 ABG Total CO2 ABG O2 Saturation Sodium Carbon Dioxide 20 L Glucose 299 H POC Glucose (mg/dL) Plasma Lactic Acid Aneesh 8.7 H* Calcium 8.3 L Phosphorus Total Bilirubin <0.1 L AST 50 H Total Protein 5.1 L Albumin 2.8 L Urine Appearance Urine Protein Urine Ketones Urine Bilirubin Ur Leukocyte Esterase Urine RBC Urine WBC Urine WBC Clumps Ur Squamous Epith Cells Urine Bacteria Hyaline Casts Urine Mucus 05/29/17 05/29/17 05/29/17 07:08 07:19 07:57 WBC RBC Hgb Neutrophils # D-Dimer ABG pH 7.21 L ABG pCO2 59 H ABG pO2 232 H ABG Total CO2 25 H ABG O2 Saturation 99.4 H Sodium Carbon Dioxide Glucose POC Glucose (mg/dL) 241 H Plasma Lactic Acid Aneesh Calcium Phosphorus 7.9 H Total Bilirubin AST Total Protein Albumin Urine Appearance Urine Protein Urine Ketones Urine Bilirubin Ur Leukocyte Esterase Urine RBC Urine WBC Urine WBC Clumps Ur Squamous Epith Cells Urine Bacteria Hyaline Casts Urine Mucus - Diagnostic Findings Chest x-ray: image reviewed (Labs x-rays a medications are all reviewed.) Assessment and Plan Assessment: Assessment Cardiopulmonary arrest, with cardiopulmonary resuscitation and return of spontaneous circulation. Etiology of cardiopulmonary arrest is not clear at this time. Post CPA/CPR respiratory failure requiring intubation and mechanical ventilation Recent admission for sepsis, COPD exacerbation and questionable pneumonia History of seizure disorder History of chronic tobacco use History of cellulitis, left leg Plan: Plan dated 05/30/2017 Labs x-rays a medications are all reviewed. The patient have an art line placed. The patient has adequate IV access. We'll make sure she is on GI and DVT prophylaxis. The patient said blood gas will be repeated once he art line is in. We've already made ventilator changes. We'll make sure she is on updrafts every 4 [id number]. We'll make sure that she has GI DVT prophylaxis. Diagnosis is guarded because of the long resuscitation. Time with Patient: Greater than 30
[2017-05-29] MEDS: cloZAPine 100 MG TAB PO SCH ×2 (10:29→23:29)
[2017-05-29] MEDS: DIVALPROEX 500 MG TABLET.DR PO SCH (10:33)
[2017-05-29 10:39] LABS: ABG Base Excess 5.7 mmol/L; ABG HCO3 30 mmol/L (21-25); ABG Oxygen Saturation 94.6 % (94-97); ABG PCO2 47 mmHg (35-45); ABG PH 7.42 (7.35-7.45); ABG PO2 74 mmHg (83-108); ABG TCO2 32 mmol/L (19-24)
[2017-05-29 12:05] LABS: Glucose,Whole Blood 167 mg/dL (75-99)
[2017-05-29] MEDS ORDERED: SODIUM CHLORIDE 0.9% 1,000 ML IV ONE (14:02)
[2017-05-29] MEDS: PROPOFOL 1,000 MG in EMPTY BAG 1 BAG IV SCH ×3 (14:03→22:03)
[2017-05-29] MEDS: VALPROATE SODIUM 500 MG in SODIUM CHLORIDE 0.9% 50 ML IVPB SCH ×2 (15:00→21:28)
--- NOTE | 2017-05-29 16:28 | CT ---
EXAMINATION TYPE: CT brain wo con DATE OF EXAM: 05/29/2017 COMPARISON: Prior CT brain 07/23/2010 HISTORY: Decreased mental status CT DLP: 1116 mGycm. Automated Exposure Control for Dose Reduction was Utilized. TECHNIQUE: CT scan of the head is performed without contrast. FINDINGS: There is no acute intracranial hemorrhage, mass effect, or midline shift identified. The ventricles and sulci are within normal limits in size. The globes are intact and the visualized sin uses are remarkable for inflammatory change in the maxillary sinus, ethmoid air cells and sphenoid si nus. Stable right frontal low-attenuation is noted IMPRESSION: No acute intracranial hemorrhage, mass effect, or midline shift is seen. Sinus disease.
[2017-05-29] MEDS: AZITHROMYCIN 500 MG in SODIUM CHLORIDE 0.9% 250 ML IVPB SCH (17:41)
[2017-05-29 18:12] LABS: Glucose,Whole Blood 100 mg/dL (75-99)
--- NOTE | 2017-05-29 20:03 | P.CNNES ---
History of Present Illness Consult date: 05/29/17 Requesting physician: Beny Leyva Reason for Consult: Altered mental status post cardiac arrest History of Present Illness: Patient is a 51-year-old female who is being evaluated by the neurology service on 05/29/2017 per the request of Dr. Leyva for altered mental status post cardiac arrest. Patient was brought to [facility] for possible sepsis, COPD exacerbation, and pneumonia. Patient was treated and was set to go home. Apparently in the morning of discharge, she called for the nurse and stated she felt like she was going to have a seizure. The nurse returned with Ativan and patient had pulled her IV also Ativan was given IM. Immediately after Ativan was given patient went into cardiac arrest. Patient was resuscitated for approximately 15-20 minutes with return of spontaneous circulation. Patient was intubated and transferred to the ICU. CT angiogram was negative for any pulmonary embolism. It is not clear whether patient had a seizure. EEG was ordered and will be done in the a.m. CT of the brain was done which showed no acute process. Patient is on Depakote 500 mg twice a day for seizure disorder. Currently patient is intubated and sedated in the ICU unit. At the time of my evaluation, patient does not appear to be in any acute distress. Review of Systems REVIEW OF SYSTEMS: Otherwise unremarkable and noncontributory. Past Medical History Past Medical History: Seizure Disorder Additional Past Medical History / Comment(s): cellulitis on left leg, pt states she had a tick in there since sep 2016 and has had the rash since History of Any Multi-Drug Resistant Organisms: None Reported Past Surgical History: No Surgical Hx Reported Past Anesthesia/Blood Transfusion Reactions: No Reported Reaction Past Psychological History: Schizophrenia Smoking Status: Current every day smoker Past Alcohol Use History: None Reported Past Drug Use History: None Reported - Past Family History Mother History Unknown: Yes Additional Family Medical History / Comment(s): pt stated that her mother of "bad heart" pt is not sure if it was a heart attack ot heart failure Father Family Medical History: Diabetes Mellitus Medications and Allergies Home Medications Medication Instructions Recorded Confirmed Type Divalproex Sodium [Depakote] 500 mg PO BID 10/05/16 05/26/17 History cloZAPine [Clozaril] 100 mg PO QAM 10/05/16 05/26/17 History cloZAPine [Clozaril] 200 mg PO HS 10/05/16 05/26/17 History Allergies Allergy/AdvReac Type Severity Reaction Status Date / Time No Known Allergies Allergy Verified 05/26/17 22:31 Physical Examination - Vital Signs Vital Signs: Vital Signs Temp Pulse Pulse Resp BP BP Pulse Ox 05/29/17 19:00 78 32 H 96 05/29/17 18:49 74 05/29/17 18:30 72 23 95 05/29/17 18:00 73 20 95 05/29/17 17:30 70 29 H 95 05/29/17 17:00 71 31 H 93 L 05/29/17 16:30 72 28 H 94 L 05/29/17 16:12 99.1 F 74 32 H 94 L 05/29/17 15:30 73 32 H 05/29/17 15:16 76 05/29/17 15:00 73 29 H 93/44 96 05/29/17 14:30 76 23 94/47 96 05/29/17 14:00 76 27 H 114/55 97 05/29/17 13:30 77 25 H 104/57 97 05/29/17 13:00 77 29 H 119/57 96 05/29/17 12:30 76 22 109/55 96 05/29/17 12:00 98.2 F 75 25 H 117/54 95 05/29/17 11:30 73 38 H 111/52 95 18 11:27 95 05/29/17 11:17 94 05/29/17 11:00 72 26 H 101/47 95 05/29/17 10:30 73 29 H 103/52 94 L 05/29/17 10:00 75 20 97/48 95 05/29/17 09:30 76 19 102/47 94 L 05/29/17 09:00 79 19 90/45 93 L 05/29/17 08:30 83 22 97/43 93 L 05/29/17 08:03 95 05/29/17 08:00 98.7 F 85 23 89/46 94 L 05/29/17 07:35 92 05/29/17 07:30 94 23 116/53 96 05/29/17 07:00 141 H 10 L 145/67 98 05/29/17 06:58 119 H 0 L 05/28/17 21:20 98.0 F 78 20 128/66 92 L Intake and Output 05/29/17 05/29/17 05/29/17 06:59 14:59 22:59 Intake Total 800 1756.2 949.900 Output Total 320 170 Balance 800 1436.2 779.900 Intake: IV 800 700 500 Sodium Chloride 0.9% 1, 800 700 500 000 ml @ 100 mls/hr IV . Q10H [place] Rx#:[id number] Intake, IV Titration 1056.2 449.900 Amount Azithromycin 500 mg In 250 Sodium Chloride 0.9% 250 ml @ 125 mls/hr IVPB DAILY [facility] Rx#:[id number] Propofol 1,000 mg In 43.7 149.900 Empty Bag 1 bag @ Titrate IV .Q0M [place] Rx#: [id number] Propofol 100 ml As IV . 12.5 [facility] Rx#:[id number] Sodium Chloride 0.9% 1, 1000 000 ml @ 999 mls/hr IV . Q1H1M [facility] Rx#:[id number] Valproate Sodium 500 mg 50 In Sodium Chloride 0.9% 50 ml @ 50 mls/hr IVPB Q12HR [facility] Rx#:[id number] Output: Gastric Drainage 150 Urine 170 170 Other: Voiding Method Indwelling Catheter Indwelling Catheter # Voids 2 Weight 104.8 kg ABP, PAP, CO, CI - Last 8 Hours Arterial Blood Pressure 137/53 Arterial Blood Pressure 135/58 Arterial Blood Pressure 137/56 Arterial Blood Pressure 136/59 Arterial Blood Pressure 131/55 Arterial Blood Pressure 134/55 Arterial Blood Pressure 135/56 Arterial Blood Pressure 138/59 Arterial Blood Pressure 147/63 Arterial Blood Pressure 149/67 Arterial Blood Pressure 158/62 Arterial Blood Pressure 163/65 Arterial Blood Pressure 163/65 Arterial Blood Pressure 140/58 Arterial Blood Pressure 155/67 PHYSICAL EXAM: GENERAL APPEARANCE: Patient is a well-developed, female who appears to be in no acute distress. Patient is intubated and sedated in the ICU HEENT: Normocephalic, atraumatic, no facial asymmetry is seen. Neck is supple with no masses felt. CARDIOVASCULAR: Regular rate and rhythm. ABDOMEN: Nontender, nondistended. EXTREMITIES: Show no edema or clubbing. NEUROLOGICAL EXAM: A meaningful neurological exam could not be performed due to intubation on mechanical ventilation and the infusion of propofol. Results - Laboratory Findings CBC and BMP: 05/29/17 07:08 05/29/17 07:08 Abnormal Lab Findings: Abnormal Labs 05/26/17 05/26/17 05/26/17 22:53 22:53 22:53 WBC 11.4 H RBC Hgb Neutrophils # 9.4 H D-Dimer 0.65 H ABG pH ABG pCO2 ABG pO2 ABG HCO3 ABG Total CO2 ABG O2 Saturation Sodium Carbon Dioxide Glucose 124 H POC Glucose (mg/dL) Plasma Lactic Acid Aneesh Calcium Phosphorus Total Bilirubin AST 40 H Total Protein 6.0 L Albumin 3.4 L Urine Appearance Urine Protein Urine Ketones Urine Bilirubin Ur Leukocyte Esterase Urine RBC Urine WBC Urine WBC Clumps Ur Squamous Epith Cells Urine Bacteria Hyaline Casts Urine Mucus 05/27/17 05/27/17 05/27/17 00:00 06:28 11:33 WBC RBC Hgb Neutrophils # D-Dimer ABG pH ABG pCO2 ABG pO2 ABG HCO3 ABG Total CO2 ABG O2 Saturation Sodium Carbon Dioxide Glucose POC Glucose (mg/dL) 191 H 154 H Plasma Lactic Acid Aneesh Calcium Phosphorus Total Bilirubin AST Total Protein Albumin Urine Appearance Turbid H Urine Protein 2+ H Urine Ketones Trace H Urine Bilirubin 1+ H Ur Leukocyte Esterase Moderate H Urine RBC 7 H Urine WBC 16 H Urine WBC Clumps Few H Ur Squamous Epith Cells 17 H Urine Bacteria Occasional H Hyaline Casts 12 H Urine Mucus Many H 05/27/17 05/27/17 05/28/17 16:21 20:54 05:56 WBC RBC Hgb Neutrophils # D-Dimer ABG pH ABG pCO2 ABG pO2 ABG HCO3 ABG Total CO2 ABG O2 Saturation Sodium Carbon Dioxide Glucose POC Glucose (mg/dL) 147 H 202 H 188 H Plasma Lactic Acid Aneesh Calcium Phosphorus Total Bilirubin AST Total Protein Albumin Urine Appearance Urine Protein Urine Ketones Urine Bilirubin Ur Leukocyte Esterase Urine RBC Urine WBC Urine WBC Clumps Ur Squamous Epith Cells Urine Bacteria Hyaline Casts Urine Mucus 05/28/17 05/28/17 05/28/17 06:03 06:03 11:43 WBC 15.5 H RBC Hgb Neutrophils # D-Dimer ABG pH ABG pCO2 ABG pO2 ABG HCO3 ABG Total CO2 ABG O2 Saturation Sodium 146 H Carbon Dioxide Glucose 190 H POC Glucose (mg/dL) 161 H Plasma Lactic Acid Aneesh Calcium Phosphorus Total Bilirubin AST 37 H Total Protein 5.8 L Albumin 3.2 L Urine Appearance Urine Protein Urine Ketones Urine Bilirubin Ur Leukocyte Esterase Urine RBC Urine WBC Urine WBC Clumps Ur Squamous Epith Cells Urine Bacteria Hyaline Casts Urine Mucus 05/28/17 05/28/17 05/29/17 17:05 19:49 06:37 WBC RBC Hgb Neutrophils # D-Dimer ABG pH ABG pCO2 ABG pO2 ABG HCO3 ABG Total CO2 ABG O2 Saturation Sodium Carbon Dioxide Glucose POC Glucose (mg/dL) 233 H 237 H 198 H Plasma Lactic Acid Aneesh Calcium Phosphorus Total Bilirubin AST Total Protein Albumin Urine Appearance Urine Protein Urine Ketones Urine Bilirubin Ur Leukocyte Esterase Urine RBC Urine WBC Urine WBC Clumps Ur Squamous Epith Cells Urine Bacteria Hyaline Casts Urine Mucus 05/29/17 05/29/17 05/29/17 07:08 07:08 07:08 WBC 17.0 H RBC 3.65 L Hgb 11.2 L Neutrophils # D-Dimer ABG pH ABG pCO2 ABG pO2 ABG HCO3 ABG Total CO2 ABG O2 Saturation Sodium Carbon Dioxide 20 L Glucose 299 H POC Glucose (mg/dL) Plasma Lactic Acid Aneesh 8.7 H* Calcium 8.3 L Phosphorus Total Bilirubin <0.1 L AST 50 H Total Protein 5.1 L Albumin 2.8 L Urine Appearance Urine Protein Urine Ketones Urine Bilirubin Ur Leukocyte Esterase Urine RBC Urine WBC Urine WBC Clumps Ur Squamous Epith Cells Urine Bacteria Hyaline Casts Urine Mucus 05/29/17 05/29/17 05/29/17 07:08 07:19 07:57 WBC RBC Hgb Neutrophils # D-Dimer ABG pH 7.21 L ABG pCO2 59 H ABG pO2 232 H ABG HCO3 ABG Total CO2 25 H ABG O2 Saturation 99.4 H Sodium Carbon Dioxide Glucose POC Glucose (mg/dL) 241 H Plasma Lactic Acid Aneesh Calcium Phosphorus 7.9 H Total Bilirubin AST Total Protein Albumin Urine Appearance Urine Protein Urine Ketones Urine Bilirubin Ur Leukocyte Esterase Urine RBC Urine WBC Urine WBC Clumps Ur Squamous Epith Cells Urine Bacteria Hyaline Casts Urine Mucus 05/29/17 05/29/17 05/29/17 10:36 12:02 18:06 WBC RBC Hgb Neutrophils # D-Dimer ABG pH ABG pCO2 47 H ABG pO2 74 L ABG HCO3 30 H ABG Total CO2 32 H ABG O2 Saturation Sodium Carbon Dioxide Glucose POC Glucose (mg/dL) 167 H 100 H Plasma Lactic Acid Aneesh Calcium Phosphorus Total Bilirubin AST Total Protein Albumin Urine Appearance Urine Protein Urine Ketones Urine Bilirubin Ur Leukocyte Esterase Urine RBC Urine WBC Urine WBC Clumps Ur Squamous Epith Cells Urine Bacteria Hyaline Casts Urine Mucus Assessment and Plan Plan: Impression: 1. Cardiopulmonary arrest 2. Seizure disorder 3. Sepsis Recommendations: It is not clear what the cause is of patient's sudden cardiopulmonary arrest. Prior to arrest, she stated she felt like she was going to have a seizure. She's been recently treated for sepsis. Patient is intubated on mechanical ventilation. She is sedated on propofol. Computed tomography scan of the brain was done which showed no acute process. EEG will be done in the morning. Continue ICU management. Continue Depakote 500 mg twice a day for seizures. Continue neurological checks. Continue seizure precautions. I will continue to follow with you. Further recommendations to follow. Thank you for allowing me to participate in the care of your patient. Any questions, please feel free to call me. I performed an examination of the patient and discussed the management with the GUN STOCK CHECKER. I have reviewed the GUN STOCK CHECKER notes and agree with the findings and plan of care.
[2017-05-29] MEDS ORDERED: PERMETHRIN 1% CREME RINSE 59 ML LIQUID TOPICAL ONE (20:15)
[2017-05-29 23:35] LABS: Glucose,Whole Blood 129 mg/dL (75-99)
--- NOTE | 2017-05-29 23:57 | P.PN ---
Subjective Progress Note Date: 05/29/17 Principal diagnosis: Acute hypoxic respiratory failure status post cardiopulmonary arrest Patient is a 51-year-old female with a known history of seizure disorder, schizophrenia and morbid obesity was initially admitted to the hospital with shortness of breath, wheezing and tachycardia and tachypnea. Patient was febrile at 3.2 on admission. Patient was being treated for COPD exacerbation and pneumonia. Patient was being followed by Dr. Leyva and was told that patient is being discharged today. Today morning patient developed cardiopulmonary arrest and had CPR for about 15-20 minutes and epi injections 2. Patient returned to spontaneous circulation and was transferred to MICU. CT angiogram was done initially was negative for pulmonary embolism. Showed patchy upper lobe infiltrates with areas of consolidation in the lower lobes superimposed on chronic interstitial changes. Influenza antigen was negative and Lyme antigen negative as well. Valproic acid within normal limits on admission Patient was also having history of tick bite in September 2016 and was treated the time. Patient developed rash at the same site 3-4 days ago, left lower extremity with surrounding redness and possible cellulitis.. Currently patient is intubated and sedated. Does not require any pressors support. CT head showed no intracranial process Chest x-ray showed worsening changes of pulmonary edema Review of systems could not be obtained from the patient Active Medications Generic Name Dose Route Start Last Admin Trade Name Freq PRN Reason Stop Dose Admin Albuterol/Ipratropium 3 ml 05/29/17 12:00 05/29/17 23:09 Duoneb 0.5 Mg-3 Mg/3 Ml Soln INHALATION 3 ml RT-Q4H [place] Administration Ceftriaxone Sodium 1,000 mg 05/27/17 09:00 05/29/17 21:23 Rocephin IVP 1,000 mg Q12HR [place] Administration Clozapine 100 mg 05/27/17 09:00 05/29/17 10:29 Clozaril PO 06/02/17 21:01 100 mg QAM [place] Administration Clozapine 200 mg 05/27/17 21:00 05/29/17 23:29 Clozaril PO 06/02/17 21:01 200 mg HS [place] Administration Enoxaparin Sodium 40 mg 05/30/17 09:00 Lovenox SQ DAILY [place] Sodium Chloride 1,000 mls @ 100 mls/hr 05/27/17 01:45 05/29/17 15:02 Saline 0.9% IV 100 mls/hr .Q10H [place] Administration Propofol 1,000 mg/ IV Solution 100 mls @ 0 mls/hr 05/29/17 09:00 05/29/17 22: 03 IV 55.02 mcg/kg/min .Q0M [place] 34.6 mls/hr Protocol Administration Titrate Valproic Acid 500 mg/ Sodium 55 mls @ 50 mls/hr 05/29/17 14:30 05/29/17 21:28 Chloride IVPB 50 mls/hr Q12HR [place] Administration Azithromycin 500 mg/ Sodium 250 mls @ 125 mls/hr 05/29/17 17:00 05/29/17 17: 41 Chloride IVPB 125 mls/hr DAILY [place] Administration Insulin Aspart 0 unit 05/29/17 18:00 05/29/17 18:11 Novolog SQ Not Given Q6HR [place] Protocol Pantoprazole Sodium 40 mg 05/30/17 09:00 Protonix IVP DAILY [place] Silver Sulfadiazine 1 applic 05/29/17 09:00 05/29/17 09:31 Silvadene Cream TOPICAL 1 applic DAILY [place] Administration Objective - Vital Signs Vital signs: Vital Signs Temp 98.2 F 05/29/17 12:00 Pulse 76 05/29/17 15:16 Resp 29 H 05/29/17 15:00 BP 93/44 05/29/17 15:00 Pulse Ox 96 05/29/17 15:00 Intake & Output 05/28/17 05/29/17 05/29/17 18:59 06:59 18:59 Intake Total 474 1100 1924.7 Output Total 350 Balance 474 1100 1574.7 Weight 104.8 kg Intake: IV 1100 800 Sodium Chloride 0.9% 1, 1100 800 000 ml @ 100 mls/hr IV . Q10H [place] Rx#:[id number] Intake, IV Titration 1124.7 Amount Propofol 1,000 mg In 62.2 Empty Bag 1 bag @ Titrate IV .Q0M [place] Rx#: [id number] Propofol 100 ml As IV . 12.5 [facility] Rx#:[id number] Sodium Chloride 0.9% 1, 1000 000 ml @ 999 mls/hr IV . Q1H1M [facility] Rx#:[id number] Valproate Sodium 500 mg 50 In Sodium Chloride 0.9% 50 ml @ 50 mls/hr IVPB Q12HR [facility] Rx#:[id number] Oral 474 Output: Gastric Drainage 150 Urine 200 Other: Voiding Method Toilet Toilet Indwelling Catheter # Voids 1 2 ABP, PAP, CO, CI - Last Documented Arterial Blood Pressure 147/63 - Exam PHYSICAL EXAMINATION: Patient is lying in the bed comfortably, no acute distress, sedated and on mechanical ventilator. Morbidly obese. HEENT: Normocephalic. Neck is supple. Pupils reactive. Nostrils clear. Oral cavity is moist. Ears reveal no drainage. Neck reveals no JVD, carotid bruits, or thyromegaly. CHEST EXAMINATION: Bilateral diffuse rhonchi and basilar crackles. no wheezing.. CARDIAC: Normal S1, S2 with no gallops. No murmurs ABDOMEN: Soft. Bowel sounds normal. No abdominal bruits. Extremities: Trace edema. No clubbing or cyanosis Neurologically awake, alert, oriented x3 with well-coordinated movements. No focal deficits noted Skin: Rash with redness and warm with on Left lower extremity medial side of calf Psychiatric: Could not be assessed Musculoskeletal: No joint swelling or deformity. Normal range of motion. - Labs CBC & Chem 7: 05/29/17 07:08 05/29/17 07:08 Labs: Abnormal Lab Results - Last 24 Hours (Table) 05/28/17 05/28/17 05/29/17 Range/Units 17:05 19:49 06:37 WBC (3.8-10.6) k/uL RBC (3.80-5.40) m/uL Hgb (11.4-16.0) gm/dL ABG pH (7.35-7.45) ABG pCO2 (35-45) mmHg ABG pO2 (83-108) mmHg ABG HCO3 (21-25) mmol/L ABG Total CO2 (19-24) mmol/L ABG O2 Saturation (94-97) % Carbon Dioxide (22-30) mmol/L Glucose (74-99) mg/dL POC Glucose (mg/dL) 233 H 237 H 198 H (75-99) mg/dL Plasma Lactic Acid Aneesh (0.7-2.0) mmol/L Calcium (8.4-10.2) mg/dL Phosphorus (2.5-4.5) mg/dL Total Bilirubin (0.2-1.3) mg/dL AST (14-36) U/L Total Protein (6.3-8.2) g/dL Albumin (3.5-5.0) g/dL 05/29/17 05/29/17 05/29/17 Range/Units 07:08 07:08 07:08 WBC 17.0 H (3.8-10.6) k/uL RBC 3.65 L (3.80-5.40) m/uL Hgb 11.2 L (11.4-16.0) gm/dL ABG pH (7.35-7.45) ABG pCO2 (35-45) mmHg ABG pO2 (83-108) mmHg ABG HCO3 (21-25) mmol/L ABG Total CO2 (19-24) mmol/L ABG O2 Saturation (94-97) % Carbon Dioxide 20 L (22-30) mmol/L Glucose 299 H (74-99) mg/dL POC Glucose (mg/dL) (75-99) mg/dL Plasma Lactic Acid Aneesh 8.7 H* (0.7-2.0) mmol/L Calcium 8.3 L (8.4-10.2) mg/dL Phosphorus (2.5-4.5) mg/dL Total Bilirubin <0.1 L (0.2-1.3) mg/dL AST 50 H (14-36) U/L Total Protein 5.1 L (6.3-8.2) g/dL Albumin 2.8 L (3.5-5.0) g/dL 05/29/17 05/29/17 05/29/17 Range/Units 07:08 07:19 07:57 WBC (3.8-10.6) k/uL RBC (3.80-5.40) m/uL Hgb (11.4-16.0) gm/dL ABG pH 7.21 L (7.35-7.45) ABG pCO2 59 H (35-45) mmHg ABG pO2 232 H (83-108) mmHg ABG HCO3 (21-25) mmol/L ABG Total CO2 25 H (19-24) mmol/L ABG O2 Saturation 99.4 H (94-97) % Carbon Dioxide (22-30) mmol/L Glucose (74-99) mg/dL POC Glucose (mg/dL) 241 H (75-99) mg/dL Plasma Lactic Acid Aneesh (0.7-2.0) mmol/L Calcium (8.4-10.2) mg/dL Phosphorus 7.9 H (2.5-4.5) mg/dL Total Bilirubin (0.2-1.3) mg/dL AST (14-36) U/L Total Protein (6.3-8.2) g/dL Albumin (3.5-5.0) g/dL 05/29/17 05/29/17 Range/Units 10:36 12:02 WBC (3.8-10.6) k/uL RBC (3.80-5.40) m/uL Hgb (11.4-16.0) gm/dL ABG pH (7.35-7.45) ABG pCO2 47 H (35-45) mmHg ABG pO2 74 L (83-108) mmHg ABG HCO3 30 H (21-25) mmol/L ABG Total CO2 32 H (19-24) mmol/L ABG O2 Saturation (94-97) % Carbon Dioxide (22-30) mmol/L Glucose (74-99) mg/dL POC Glucose (mg/dL) 167 H (75-99) mg/dL Plasma Lactic Acid Aneesh (0.7-2.0) mmol/L Calcium (8.4-10.2) mg/dL Phosphorus (2.5-4.5) mg/dL Total Bilirubin (0.2-1.3) mg/dL AST (14-36) U/L Total Protein (6.3-8.2) g/dL Albumin (3.5-5.0) g/dL Microbiology - Last 24 Hours (Table) 05/27/17 00:00 Urine Culture - Final Urine,Voided Escherichia coli 05/26/17 22:53 Blood Culture - Preliminary Blood No Growth after 48 hours Assessment and Plan Assessment: Acute cardiopulmonary arrest with return of spontaneous circulation Status post CPR and currently on mechanical ventilator/hypoxic respiratory failure Possible pneumonia and sepsis COPD exacerbation on admission. No history of PFTs in the past Active nicotine addiction Seizure disorder. Valproic acid level within normal limits. Schizophrenia Morbid obesity with BMI 42.3 Left lower activity take bite in September 2016 and rash at the same area possible surrounding cellulitis DVT prophylaxis Plan: Patient will be continued on mechanical ventilator. Pulmonary is following. Antibiotics in the form of azithromycin and ceftriaxone. Neurology and ID will be consulted. CT head is negative for any acute process. EEG to be done. Follow with culture reports. Further recommendations based on the clinical course. Discussed with her sister at bedside in detail. Time with Patient: Greater than 30
[2017-05-30] MEDS: SODIUM CHLORIDE 0.9% 1,000 ML IV SCH ×4 (00:49→11:00)
[2017-05-30] MEDS: INSULIN ASPART 100 UNIT/ML 1 ML 10 ML VIAL SQ SCH ×4 (00:49→17:50)
[2017-05-30] MEDS: PROPOFOL 1,000 MG in EMPTY BAG 1 BAG IV SCH ×8 (00:50→21:10)
[2017-05-30 00:58] VITALS: BP 101/44
[2017-05-30] MEDS: IPRATROPIUM-ALBUTEROL 3 ML NEB INHALATION SCH ×6 (02:56→23:03)
[2017-05-30 03:35] LABS: ABG Base Excess 5.5 mmol/L; ABG HCO3 30 mmol/L (21-25); ABG Oxygen Saturation 91.2 % (94-97); ABG PCO2 44 mmHg (35-45); ABG PH 7.44 (7.35-7.45); ABG PO2 60 mmHg (83-108); ABG TCO2 31 mmol/L (19-24)
[2017-05-30 05:38] LABS: Basophils % (A) 0 %; Eosinophils % (A) 0 %; HCT 34.4 % (34.0-46.0); Lymphocytes # (A) 0.5 k/uL (1.0-4.8); Lymphocytes % (A) 3 %; MCH 29.5 pg (25.0-35.0); MCV 92.4 fL (80.0-100.0); Mean Platelet Volume 9.5; Monocytes # (A) 0.3 k/uL (0-1.0); Monocytes % (A) 2 %; Neutrophils # (A) 15.3 k/uL (1.3-7.7); Neutrophils % (A) 94 %; Platelet Count 178 k/uL (150-450); RBC 3.72 m/uL (3.80-5.40); RDW 14.4 % (11.5-15.5); WBC 16.2 k/uL (3.8-10.6)
[2017-05-30 05:45] LABS: ALT 47 U/L (9-52); AST 51 U/L (14-36); Albumin 2.3 g/dL (3.5-5.0); Alkaline Phosphatase 59 U/L (38-126); Anion Gap 11 mmol/L; Blood Urea Nitrogen 19 mg/dL (7-17); Calcium 7.9 mg/dL (8.4-10.2); Carbon Dioxide 27 mmol/L (22-30); Chloride 108 mmol/L (98-107); Glucose 121 mg/dL (74-99); Magnesium 1.9 mg/dL (1.6-2.3); Phosphorus 3.8 mg/dL (2.5-4.5); Potassium 3.6 mmol/L (3.5-5.1); Sodium 146 mmol/L (137-145); Total Bilirubin <0.1 mg/dL (0.2-1.3); Total Protein 4.4 g/dL (6.3-8.2)
[2017-05-30] MEDS ORDERED: Potassium Replacement Protocol 1 EACH MISC MISCELLANE PRN (05:54)
[2017-05-30] MEDS ORDERED: POTASSIUM BICARBONATE/CIT AC 20 MEQ TABLET.EFF NG-TUBE SCH (06:00)
--- NOTE | 2017-05-30 07:55 | XR ---
EXAMINATION TYPE: XR chest 1V portable DATE OF EXAM: 05/30/2017 HISTORY: ett placement, pulm edema. REFERENCE: Previous study dated 05/29/2017. FINDINGS: The patient is ET tube and NG tube remain in place, unchanged in appearance. The heart is enlarged. There is bilateral airspace disease worse on the right than the left. Suspect small effusions. This may represent pulmonary edema. It would be difficult to exclude overlying pneum onia. IMPRESSION: NO SIGNIFICANT INTERVAL CHANGE IN THE APPEARANCE OF THE CHEST.
[2017-05-30] MEDS: CHLORHEXIDINE GLUCONATE 15 ML CUP MUCOUS MEM SCH ×2 (08:00→20:55)
[2017-05-30] MEDS: AZITHROMYCIN 500 MG in SODIUM CHLORIDE 0.9% 250 ML IVPB SCH (08:00)
[2017-05-30] MEDS: ENOXAPARIN 40 MG/0.4 ML SYRINGE SQ SCH (08:00)
[2017-05-30] MEDS: cefTRIAXone IN SWFI 1,000 MG/10 ML SYRINGE IVP SCH (08:00)
[2017-05-30] MEDS: VALPROATE SODIUM 500 MG in SODIUM CHLORIDE 0.9% 50 ML IVPB SCH ×2 (08:01→20:54)
[2017-05-30] MEDS: PANTOPRAZOLE 40 MG/10 ML VIAL IVP SCH (08:01)
--- NOTE | 2017-05-30 10:13 | P.PN ---
Subjective Progress Note Date: 05/30/17 Principal diagnosis: Respiratory failure Progress note dated 05/30/2017 This is a 51-year-old female, status post cardiopulmonary arrest with cardiopulmonary resuscitation and return of spontaneous circulation. The etiology of a cardiopulmonary arrest is not known. She had about a 15-20 minute downtime. She was intubated and placed on mechanical breathing machine. She's now in the ICU in room 613. The patient has a history of recent admission for sepsis COPD exacerbation and questionable pneumonia, seizure disorder, chronic tobacco use, and cellulitis of the left leg. Yesterday, we stopped her sedation, she did not really wake up or improve neurologically. Were trying that again today. We'll start her on some tube feeds today. Currently, she is on the assist control mode rate of 20 tidal volume 400 FiO2 of 60% PEEP of 5. Arterial blood gases show a PaO2 of 60 PaCO2 44 and a pH of 7.44. The patient's currently on propofol 60 mikes per kilogram per minute and a saline IV at 100 mL an hour. We'll start tube feeds today. She did have a CT angiogram which was negative for pulmonary embolism. Other than seizure disorder, we don't know much about her history. She apparently was found to have lice. Objective - Vital Signs Vital signs: Vital Signs Temp 98.8 F 05/30/17 08:00 Pulse 77 05/30/17 09:00 Resp 28 H 05/30/17 09:00 BP 101/44 05/30/17 01:00 Pulse Ox 90 L 05/30/17 09:00 Intake & Output 05/29/17 05/30/17 05/30/17 18:59 06:59 18:59 Intake Total 2606.100 1656.069 609 Output Total 470 965 250 Balance 2136.100 691.069 359 Weight 110.3 kg Intake: IV 1100 1218 309 Sodium Chloride 0.9% 1, 1100 1200 300 000 ml @ 100 mls/hr IV . Q10H [facility] Rx#:[id number] pressure bag 18 9 Intake, IV Titration 1506.100 438.069 300 Amount Azithromycin 500 mg In 250 250 Sodium Chloride 0.9% 250 ml @ 125 mls/hr IVPB DAILY [facility] Rx#:[id number] Propofol 1,000 mg In 193.600 388.069 Empty Bag 1 bag @ Titrate IV .Q0M [facility] Rx#: [id number] Propofol 100 ml As IV . 12.5 [facility] Rx#:[id number] Sodium Chloride 0.9% 1, 1000 000 ml @ 999 mls/hr IV . Q1H1M [facility] Rx#:[id number] Valproate Sodium 500 mg 50 50 50 In Sodium Chloride 0.9% 50 ml @ 50 mls/hr IVPB Q12HR [facility] Rx#:[id number] Output: Gastric Drainage 150 650 Urine 320 315 250 Other: Voiding Method Indwelling Catheter Indwelling Catheter Indwelling Catheter ABP, PAP, CO, CI - Last Documented Arterial Blood Pressure 143/56 - Exam No acute distress, sedated, with an orally placed endotracheal tube and NG tube HEENT examination is grossly unremarkable. Neck supple. Full range of motion. No adenopathy thyromegaly or neck vein distention. Cardiovascular examination reveals regular rhythm rate. S1-S2 normal. No S3 or S4. No discernible murmur noted. Lungs reveal diminished breath sounds. A few scattered rhonchi. No wheezes. Abdomen soft bowel sounds are heard. No masses or tenderness. Extremities are intact. No cyanosis or clubbing. Slight edema. Skin is without rash or lesion. Neurologic examination could not be assessed - Labs CBC & Chem 7: 05/30/17 04:49 05/30/17 04:49 Labs: Abnormal Lab Results - Last 24 Hours (Table) 05/29/17 05/29/17 05/29/17 Range/Units 10:36 12:02 18:06 WBC (3.8-10.6) k/uL RBC (3.80-5.40) m/uL Hgb (11.4-16.0) gm/dL Neutrophils # (1.3-7.7) k/uL Lymphocytes # (1.0-4.8) k/uL ABG pCO2 47 H (35-45) mmHg ABG pO2 74 L (83-108) mmHg ABG HCO3 30 H (21-25) mmol/L ABG Total CO2 32 H (19-24) mmol/L ABG O2 Saturation (94-97) % Sodium (137-145) mmol/L Chloride (98-107) mmol/L BUN (7-17) mg/dL Glucose (74-99) mg/dL POC Glucose (mg/dL) 167 H 100 H (75-99) mg/dL Calcium (8.4-10.2) mg/dL Total Bilirubin (0.2-1.3) mg/dL AST (14-36) U/L Total Protein (6.3-8.2) g/dL Albumin (3.5-5.0) g/dL 05/29/17 05/30/17 05/30/17 Range/Units 23:32 03:29 04:49 WBC 16.2 H (3.8-10.6) k/uL RBC 3.72 L (3.80-5.40) m/uL Hgb 11.0 L (11.4-16.0) gm/dL Neutrophils # 15.3 H (1.3-7.7) k/uL Lymphocytes # 0.5 L (1.0-4.8) k/uL ABG pCO2 (35-45) mmHg ABG pO2 60 L (83-108) mmHg ABG HCO3 30 H (21-25) mmol/L ABG Total CO2 31 H (19-24) mmol/L ABG O2 Saturation 91.2 L (94-97) % Sodium (137-145) mmol/L Chloride (98-107) mmol/L BUN (7-17) mg/dL Glucose (74-99) mg/dL POC Glucose (mg/dL) 129 H (75-99) mg/dL Calcium (8.4-10.2) mg/dL Total Bilirubin (0.2-1.3) mg/dL AST (14-36) U/L Total Protein (6.3-8.2) g/dL Albumin (3.5-5.0) g/dL 05/30/17 Range/Units 04:49 WBC (3.8-10.6) k/uL RBC (3.80-5.40) m/uL Hgb (11.4-16.0) gm/dL Neutrophils # (1.3-7.7) k/uL Lymphocytes # (1.0-4.8) k/uL ABG pCO2 (35-45) mmHg ABG pO2 (83-108) mmHg ABG HCO3 (21-25) mmol/L ABG Total CO2 (19-24) mmol/L ABG O2 Saturation (94-97) % Sodium 146 H (137-145) mmol/L Chloride 108 H (98-107) mmol/L BUN 19 H (7-17) mg/dL Glucose 121 H (74-99) mg/dL POC Glucose (mg/dL) (75-99) mg/dL Calcium 7.9 L (8.4-10.2) mg/dL Total Bilirubin <0.1 L (0.2-1.3) mg/dL AST 51 H (14-36) U/L Total Protein 4.4 L (6.3-8.2) g/dL Albumin 2.3 L (3.5-5.0) g/dL Microbiology - Last 24 Hours (Table) 05/26/17 22:53 Blood Culture - Preliminary Blood No Growth after 72 hours 05/27/17 00:00 Urine Culture - Final Urine,Voided Escherichia coli Assessment and Plan Assessment: Assessment Cardiopulmonary arrest, with cardiopulmonary resuscitation and return of spontaneous circulation. Etiology of cardiopulmonary arrest is not clear at this time. Post CPA/CPR respiratory failure requiring intubation and mechanical ventilation Recent admission for sepsis, COPD exacerbation and questionable pneumonia History of seizure disorder History of chronic tobacco use History of cellulitis, left leg Head lice Plan: Plan dated 05/29/2017 Labs x-rays a medications are all reviewed. The patient have an art line placed. The patient has adequate IV access. We'll make sure she is on GI and DVT prophylaxis. The patient said blood gas will be repeated once he art line is in. We've already made ventilator changes. We'll make sure she is on updrafts every 4 [id number]. We'll make sure that she has GI DVT prophylaxis. Diagnosis is guarded because of the long resuscitation. Plan dated 05/30/2017 Labs x-rays a medications are reviewed. We'll currently maintained a ventilator words. We'll do a daily eruption of sedation. We'll start tube feeds. The saline IV will be dropped down quite a bit. Labs x-rays a medications are reviewed. Prognosis is guarded. Hopefully this some neurologic improvement. Additional recommendations and suggestions are forthcoming. Time with Patient: Greater than 30
[2017-05-30] MEDS ORDERED: FUROSEMIDE 10 MG/ML 4 ML VIAL IV STA (10:24)
[2017-05-30] MEDS: cloZAPine 100 MG TAB PO SCH ×2 (10:56→20:55)
[2017-05-30 12:30] LABS: Glucose,Whole Blood 123 mg/dL (75-99)
[2017-05-30] MEDS ORDERED: MORPHINE SULFATE 4MG/4ML SYRG IVP PRN ×2 (14:43)
--- NOTE | 2017-05-30 15:55 | P.PN ---
Subjective Progress Note Date: 05/30/17 Patient is a 51-year-old female who is being followed by the neurology service for altered mental status following cardiopulmonary arrest. The etiology of the cardiopulmonary arrest is unknown. Patient was ready to be discharged from the hospital after being treated for cellulitis. Patient felt as if she was could have a seizure and called for the nurse. The nurse gave the patient Ativan IM because the patient had pulled her IV out. Patient went into cardiopulmonary arrest. Patient had resuscitation for about 15-20 minutes before return of spontaneous circulation. Patient was transferred to the ICU and is intubated on mechanical ventilation. She is sedated on propofol. Patient had sedation holiday and patient did not show neurological improvement. Patient was started on tube feedings. Patient had a CT angiogram which was negative for pulmonary embolism. She does have history of seizure disorder. EEG was to be done this morning, however, patient was found to have lites and was treated for such. EEG will be performed tomorrow morning. The time of my evaluation, patient does not appear to be in any acute distress. Objective - Vital Signs Vital signs: Vital Signs Temp 99.9 F H 05/30/17 12:00 Pulse 84 05/30/17 15:00 Resp 34 H 05/30/17 15:00 BP 101/44 05/30/17 01:00 Pulse Ox 88 L 05/30/17 15:00 Intake & Output 05/29/17 05/30/17 05/30/17 18:59 06:59 18:59 Intake Total 2606.100 0665.287 5688.39 Output Total 267 982 1076 Balance 2136.100 691.069 -393.61 Weight 110.3 kg 110.3 kg Intake: IV 1100 1218 515 Sodium Chloride 0.9% 1, 1100 1200 500 000 ml @ 20 mls/hr IV . Q24H [facility] Rx#:[id number] pressure bag 18 15 Intake, IV Titration 1506.100 438.069 496.39 Amount Azithromycin 500 mg In 250 250 Sodium Chloride 0.9% 250 ml @ 125 mls/hr IVPB DAILY [facility] Rx#:[id number] Propofol 1,000 mg In 193.600 388.069 196.39 Empty Bag 1 bag @ Titrate IV .Q0M [facility] Rx#: [id number] Propofol 100 ml As IV . 12.5 [facility] Rx#:[id number] Sodium Chloride 0.9% 1, 1000 000 ml @ 999 mls/hr IV . Q1H1M [facility] Rx#:[id number] Valproate Sodium 500 mg 50 50 50 In Sodium Chloride 0.9% 50 ml @ 50 mls/hr IVPB Q12HR [facility] Rx#:[id number] Tube Feeding 60 Other 30 Output: Gastric Drainage 150 650 Urine 596 129 4183 Other: Voiding Method Indwelling Catheter Indwelling Catheter Indwelling Catheter ABP, PAP, CO, CI - Last Documented Arterial Blood Pressure 134/54 - Exam PHYSICAL EXAM: GENERAL APPEARANCE: Patient is a well-developed, female who is intubated on mechanical ventilation HEENT: Normocephalic, atraumatic, no obvious facial asymmetry is seen. Neck is supple with no masses felt. CARDIOVASCULAR: Regular rate and rhythm. ABDOMEN: Nondistended. EXTREMITIES: Show no edema or clubbing. NEUROLOGICAL EXAM: A meaningful neurological exam could not be performed due to patient being intubated on mechanical ventilation and sedated on propofol. - Labs CBC & Chem 7: 05/30/17 04:49 05/30/17 04:49 Labs: Abnormal Lab Results - Last 24 Hours (Table) 05/29/17 05/29/17 05/30/17 Range/Units 18:06 23:32 03:29 WBC (3.8-10.6) k/uL RBC (3.80-5.40) m/uL Hgb (11.4-16.0) gm/dL Neutrophils # (1.3-7.7) k/uL Lymphocytes # (1.0-4.8) k/uL ABG pO2 60 L (83-108) mmHg ABG HCO3 30 H (21-25) mmol/L ABG Total CO2 31 H (19-24) mmol/L ABG O2 Saturation 91.2 L (94-97) % Sodium (137-145) mmol/L Chloride (98-107) mmol/L BUN (7-17) mg/dL Glucose (74-99) mg/dL POC Glucose (mg/dL) 100 H 129 H (75-99) mg/dL Calcium (8.4-10.2) mg/dL Total Bilirubin (0.2-1.3) mg/dL AST (14-36) U/L Total Protein (6.3-8.2) g/dL Albumin (3.5-5.0) g/dL 05/30/17 05/30/17 05/30/17 Range/Units 04:49 04:49 12:28 WBC 16.2 H (3.8-10.6) k/uL RBC 3.72 L (3.80-5.40) m/uL Hgb 11.0 L (11.4-16.0) gm/dL Neutrophils # 15.3 H (1.3-7.7) k/uL Lymphocytes # 0.5 L (1.0-4.8) k/uL ABG pO2 (83-108) mmHg ABG HCO3 (21-25) mmol/L ABG Total CO2 (19-24) mmol/L ABG O2 Saturation (94-97) % Sodium 146 H (137-145) mmol/L Chloride 108 H (98-107) mmol/L BUN 19 H (7-17) mg/dL Glucose 121 H (74-99) mg/dL POC Glucose (mg/dL) 123 H (75-99) mg/dL Calcium 7.9 L (8.4-10.2) mg/dL Total Bilirubin <0.1 L (0.2-1.3) mg/dL AST 51 H (14-36) U/L Total Protein 4.4 L (6.3-8.2) g/dL Albumin 2.3 L (3.5-5.0) g/dL Microbiology - Last 24 Hours (Table) 05/26/17 22:53 Blood Culture - Preliminary Blood No Growth after 72 hours Assessment and Plan Plan: Impression: 1. Cardiopulmonary arrest 2. Seizure disorder 3. Sepsis Recommendations: It is not clear what the cause is of patient's sudden cardiopulmonary arrest. Prior to arrest, she stated she felt like she was going to have a seizure. She's been recently treated for sepsis. Patient is intubated on mechanical ventilation. She is sedated on propofol. Computed tomography scan of the brain was done which showed no acute process. EEG will be done in the morning. Continue ICU management. Continue Depakote 500 mg twice a day for seizures. Continue neurological checks. Continue seizure precautions. I will continue to follow with you. Further recommendations to follow. I performed an examination of the patient and discussed the management with the [facility]. I have reviewed the [facility] notes and agree with the findings and plan of care.
[2017-05-30 17:50] LABS: Glucose,Whole Blood 135 mg/dL (75-99)
--- NOTE | 2017-05-30 19:15 | CONS ---
CONSULTATION DATE OF CONSULTATION: 05/30/2017. REASON FOR CONSULTATION: 1. Rash and question of cellulitis. 2. Possible aspiration pneumonia. HISTORY OF PRESENT ILLNESS: The patient is a 51-year-old female who was brought into the ER at [facility] 05/26/2017 with chief complaints of increasing shortness of breath. The patient was febrile on admission to the hospital with a fever of 103.3 Fahrenheit. The patient did have influenza serology that was negative. On admission to the hospital patient did have elevated white count 14.4. A chest x-ray done on admission shows mild prominence in the interstitial markings raising possibility of a viral process. The patient also did have a CT angiogram completed which shows no pulmonary embolism. Patchy upper lobe infiltrate with areas of consolidation in the lower lobes chronic interstitial changes. The patient has been treated for possible COPD/asthma exacerbation with underlying pneumonia and has been on Rocephin and Zithromax. Yesterday morning, the patient did have a cardiac arrest while on the floor for which the patient has been assisted with CPR for almost 15 to 20 minutes with 2 epi injection. The patient had a spontaneous circulation and has been admitted to the ICU. The patient apparently did have a chronic rash to the left lower extremity, which last year. Apparently secondary to a tic bite and has been treated. However, the was not sure exactly what medication she got for treatment of the same. This is more of a dull rash and no redness was noted. Also had some rash in the bilateral groin area. Infectious Disease was requested to further evaluate the patient regarding the rash as well as antibiotic therapy. Most of this information has been obtained from review of the chart and talking to the as the patient is currently on the vent, unable to provide any history. REVIEW OF SYSTEMS: Could not be reliably obtained. The positive points have been mentioned in HPI. PAST MEDICAL HISTORY: Significant for seizure disorder, schizophrenia. PAST SURGERY HISTORY: No major surgeries. SOCIAL HISTORY: Current everyday smoker. No drinking or drug use. FAMILY HISTORY: Mother with history of a bad heart, from it. Father history of diabetes. ALLERGIES: No known drug allergies. MEDICATIONS: The patient is currently on Rocephin 1 gm daily, in addition to azithromycin, Valproic acid, propofol, Protonix, morphine sulfate, NovoLog, Lovenox, and DuoNeb. EXAMINATION: Her blood pressure is 131/50 with a pulse of 85. Temperature of 99.6, T-max of 100.1. Admission fever 103.2. The patient is currently on 94% with 50% FiO2. General description is a middle aged female intubated on the vent. HEENT examination is slight pallor. No scleral icterus. The patient is orally intubated limiting examination of oral cavity. Neck trachea central. No thyromegaly. Lungs unlabored breathing. Coarse breath sounds bilaterally. No wheeze heart S1, S2. Regular rate and rhythm. ABDOMEN: Soft, slightly distended. No guarding or rigidity. No organomegaly. EXTREMITIES: No edema of the feet. Examination of the left leg: the patient did seem to have some chronic changes on the left leg. No active cellulitis was noticed. No induration. No skin breakdown or any drainage. Similar findings in bilateral groin area with some component of cutaneous candidiasis. Neurologic: The patient is currently on the vent, unresponsive and unable to continue neuro exam. LABS: Hemoglobin is 11, white count 16.2, BUN of 19, creatinine 0.80. Electrolytes have been normal. Liver enzymes normal. Urine on admission was slightly positive. Influenza serology has been negative. Lyme antibodies were reported to be negative. Urine was E coli, that is sensitive pathogen. Blood culture on admission has been negative. DIAGNOSTIC IMPRESSION/PLAN: 1. Patient with acute respiratory failure after the patient did have a cardiac arrest, now does have a low-grade fever with worsening of the chest x-ray finding more likely pointing towards an aspiration pneumonia in a patient admitted to the hospital with pneumonia likely of community acquired pathogen and the fever initially responded to the Rocephin and Zithromax therapy. However with this new fever being started while in the hospital and did have jump in white count, we will need to cover for the resistant gram-negative pathogen. 2. Patient do have some chronic changes in the left leg with no active cellulitis with questionable history of tic bite though the last serology has been negative. 3. Patient does have a bilateral groin area cutaneous candidiasis. PLAN: 1. We will repeat blood cultures. 2. We will obtain sputum for gram stain culture and sensitivity. 3. Discontinue Rocephin and Zithromax. 4. We will start the patient on Zosyn 3.75 g IV q.8 hours. 5. Nystatin powder to bilateral groin area. 6. We will follow up on clinical condition and cultures to further adjust medication if needed. Thank you for this consultation. We will follow this patient along with you. The was present at bedside. All his questions and concerns were answered. MOISES / FRANCESCA: [id number] /
[2017-05-30] MEDS: NYSTATIN 100,000 UNIT/GM POWD 15 GM TOPICAL SCH (20:55)
[2017-05-30] MEDS: ACETAMINOPHEN IV (For NPO) 1,000 MG in EMPTY BAG 1 BAG IVPB PRN (21:21)
--- NOTE | 2017-05-30 22:23 | P.PN ---
Subjective Progress Note Date: 05/30/17 Principal diagnosis: Acute hypoxic respiratory failure status post cardiopulmonary arrest Patient is a 51-year-old female with a known history of seizure disorder, schizophrenia and morbid obesity was initially admitted to the hospital with shortness of breath, wheezing and tachycardia and tachypnea. Patient was febrile at 3.2 on admission. Patient was being treated for COPD exacerbation and pneumonia. Patient was being followed by Dr. Leyva and was told that patient is being discharged today. Today morning patient developed cardiopulmonary arrest and had CPR for about 15-20 minutes and epi injections 2. Patient returned to spontaneous circulation and was transferred to MICU. CT angiogram was done initially was negative for pulmonary embolism. Showed patchy upper lobe infiltrates with areas of consolidation in the lower lobes superimposed on chronic interstitial changes. Influenza antigen was negative and Lyme antigen negative as well. Valproic acid within normal limits on admission Patient was also having history of tick bite in September 2016 and was treated the time. Patient developed rash at the same site 3-4 days ago, left lower extremity with surrounding redness and possible cellulitis.. Currently patient is intubated and sedated. Does not require any pressors support. CT head showed no intracranial process Chest x-ray showed worsening changes of pulmonary edema 05/30/2017 Patient remained on mechanical ventilator today. Patient did not wake up with off sedation. no neurological improvement. Patient is being started on tube feeding. Currently sedated. otherwise patient developed low-grade fever. Antibiotics have been changed to Zosyn for possible aspiration as well. ID and pulmonary is following. Discussed with her sister at bedside. She was found to have lice. Review of systems could not be obtained from the patient Active Medications Generic Name Dose Route Start Last Admin Trade Name Freq PRN Reason Stop Dose Admin Albuterol/Ipratropium 3 ml 05/29/17 12:00 05/29/17 23:09 Duoneb 0.5 Mg-3 Mg/3 Ml Soln INHALATION 3 ml RT-Q4H [facility] Administration Ceftriaxone Sodium 1,000 mg 05/27/17 09:00 05/29/17 21:23 Rocephin IVP 1,000 mg Q12HR [facility] Administration Clozapine 100 mg 05/27/17 09:00 05/29/17 10:29 Clozaril PO 06/02/17 21:01 100 mg QAM [facility] Administration Clozapine 200 mg 05/27/17 21:00 05/29/17 23:29 Clozaril PO 06/02/17 21:01 200 mg HS [facility] Administration Enoxaparin Sodium 40 mg 05/30/17 09:00 Lovenox SQ DAILY [facility] Sodium Chloride 1,000 mls @ 100 mls/hr 05/27/17 01:45 05/29/17 15:02 Saline 0.9% IV 100 mls/hr .Q10H [place] Administration Propofol 1,000 mg/ IV Solution 100 mls @ 0 mls/hr 05/29/17 09:00 05/29/17 22: 03 IV 55.02 mcg/kg/min .Q0M [facility] 34.6 mls/hr Protocol Administration Titrate Valproic Acid 500 mg/ Sodium 55 mls @ 50 mls/hr 05/29/17 14:30 05/29/17 21:28 Chloride IVPB 50 mls/hr Q12HR [facility] Administration Azithromycin 500 mg/ Sodium 250 mls @ 125 mls/hr 05/29/17 17:00 05/29/17 17: 41 Chloride IVPB 125 mls/hr DAILY [facility] Administration Insulin Aspart 0 unit 05/29/17 18:00 05/29/17 18:11 Novolog SQ Not Given Q6HR [facility] Protocol Pantoprazole Sodium 40 mg 05/30/17 09:00 Protonix IVP DAILY [facility] Silver Sulfadiazine 1 applic 05/29/17 09:00 05/29/17 09:31 Silvadene Cream TOPICAL 1 applic DAILY [facility] Administration Objective - Vital Signs Vital signs: Vital Signs Temp 99.9 F H 05/30/17 12:00 Pulse 84 05/30/17 15:00 Resp 34 H 05/30/17 15:00 BP 101/44 05/30/17 01:00 Pulse Ox 88 L 05/30/17 15:00 Intake & Output 05/29/17 05/30/17 05/30/17 18:59 06:59 18:59 Intake Total 2606.100 8417.151 0767.39 Output Total 025 561 4567 Balance 2136.100 691.069 -393.61 Weight 110.3 kg 110.3 kg Intake: IV 1100 1218 515 Sodium Chloride 0.9% 1, 1100 1200 500 000 ml @ 20 mls/hr IV . Q24H [facility] Rx#:[id number] pressure bag 18 15 Intake, IV Titration 1506.100 438.069 496.39 Amount Azithromycin 500 mg In 250 250 Sodium Chloride 0.9% 250 ml @ 125 mls/hr IVPB DAILY [facility] Rx#:[id number] Propofol 1,000 mg In 193.600 388.069 196.39 Empty Bag 1 bag @ Titrate IV .Q0M [facility] Rx#: [id number] Propofol 100 ml As IV . 12.5 [facility] Rx#:[id number] Sodium Chloride 0.9% 1, 1000 000 ml @ 999 mls/hr IV . Q1H1M [facility] Rx#:[id number] Valproate Sodium 500 mg 50 50 50 In Sodium Chloride 0.9% 50 ml @ 50 mls/hr IVPB Q12HR [facility] Rx#:[id number] Tube Feeding 60 Other 30 Output: Gastric Drainage 150 650 Urine 034 054 2152 Other: Voiding Method Indwelling Catheter Indwelling Catheter Indwelling Catheter ABP, PAP, CO, CI - Last Documented Arterial Blood Pressure 134/54 - Exam PHYSICAL EXAMINATION: Patient is lying in the bed comfortably, no acute distress, sedated and on mechanical ventilator. Morbidly obese. HEENT: Normocephalic. Neck is supple. Pupils reactive. Nostrils clear. Oral cavity is moist. Ears reveal no drainage. Neck reveals no JVD, carotid bruits, or thyromegaly. CHEST EXAMINATION: Bilateral diffuse rhonchi and basilar crackles. no wheezing.. CARDIAC: Normal S1, S2 with no gallops. No murmurs ABDOMEN: Soft. Bowel sounds normal. No abdominal bruits. Extremities: Trace edema. No clubbing or cyanosis Neurologically could not be assessed completely. Pupils sluggishly reactive. Does have cough reflex. No focal deficits noted Skin: Rash with redness and warm with on Left lower extremity medial side of calf Psychiatric: Could not be assessed Musculoskeletal: No joint swelling or deformity. Normal range of motion. - Labs CBC & Chem 7: 05/30/17 04:49 05/30/17 04:49 Labs: Abnormal Lab Results - Last 24 Hours (Table) 05/29/17 05/29/17 05/30/17 Range/Units 18:06 23:32 03:29 WBC (3.8-10.6) k/uL RBC (3.80-5.40) m/uL Hgb (11.4-16.0) gm/dL Neutrophils # (1.3-7.7) k/uL Lymphocytes # (1.0-4.8) k/uL ABG pO2 60 L (83-108) mmHg ABG HCO3 30 H (21-25) mmol/L ABG Total CO2 31 H (19-24) mmol/L ABG O2 Saturation 91.2 L (94-97) % Sodium (137-145) mmol/L Chloride (98-107) mmol/L BUN (7-17) mg/dL Glucose (74-99) mg/dL POC Glucose (mg/dL) 100 H 129 H (75-99) mg/dL Calcium (8.4-10.2) mg/dL Total Bilirubin (0.2-1.3) mg/dL AST (14-36) U/L Total Protein (6.3-8.2) g/dL Albumin (3.5-5.0) g/dL 05/30/17 05/30/17 05/30/17 Range/Units 04:49 04:49 12:28 WBC 16.2 H (3.8-10.6) k/uL RBC 3.72 L (3.80-5.40) m/uL Hgb 11.0 L (11.4-16.0) gm/dL Neutrophils # 15.3 H (1.3-7.7) k/uL Lymphocytes # 0.5 L (1.0-4.8) k/uL ABG pO2 (83-108) mmHg ABG HCO3 (21-25) mmol/L ABG Total CO2 (19-24) mmol/L ABG O2 Saturation (94-97) % Sodium 146 H (137-145) mmol/L Chloride 108 H (98-107) mmol/L BUN 19 H (7-17) mg/dL Glucose 121 H (74-99) mg/dL POC Glucose (mg/dL) 123 H (75-99) mg/dL Calcium 7.9 L (8.4-10.2) mg/dL Total Bilirubin <0.1 L (0.2-1.3) mg/dL AST 51 H (14-36) U/L Total Protein 4.4 L (6.3-8.2) g/dL Albumin 2.3 L (3.5-5.0) g/dL Microbiology - Last 24 Hours (Table) 05/26/17 22:53 Blood Culture - Preliminary Blood No Growth after 72 hours Assessment and Plan Assessment: Acute cardiopulmonary arrest with return of spontaneous circulation Status post CPR and currently on mechanical ventilator/hypoxic respiratory failure Possible pneumonia and sepsis. Suspected gram-negative and/aspiration COPD exacerbation on admission. No history of PFTs in the past Active nicotine addiction Seizure disorder. Valproic acid level within normal limits. Schizophrenia Morbid obesity with BMI 42.3 Left lower activity take bite in September 2016 and rash at the same area possible surrounding cellulitis DVT prophylaxis Plan: Patient will be continued on mechanical ventilator. Pulmonary is following. Antibiotics in the form of Zosyn. DC'd azithromycin and ceftriaxone. Neurology and ID will be consulted. CT head is negative for any acute process. EEG to be done tomorrow. Follow with culture reports. Further recommendations based on the clinical course. Discussed with her sister at bedside in detail. Time with Patient: Greater than 30
[2017-05-30 23:52] LABS: Glucose,Whole Blood 131 mg/dL (75-99)
[2017-05-31] MEDS: PIPERACILLIN-TAZOBACTAM 3.375 GM in DEXTROSE/WATER 1 50ML.BAG IVPB SCH ×3 (00:04→16:18)
[2017-05-31] MEDS: PROPOFOL 1,000 MG in EMPTY BAG 1 BAG IV SCH ×6 (00:04→22:28)
[2017-05-31] MEDS: INSULIN ASPART 100 UNIT/ML 1 ML 10 ML VIAL SQ SCH ×4 (00:09→18:18)
[2017-05-31] MEDS: IPRATROPIUM-ALBUTEROL 3 ML NEB INHALATION SCH ×6 (03:33→23:01)
[2017-05-31] MEDS: SODIUM CHLORIDE 0.9% 1,000 ML IV SCH (03:54)
[2017-05-31 04:38] LABS: Basophils # (A) 0.1 k/uL (0-0.2); Basophils % (A) 0 %; Eosinophils % (A) 0 %; HCT 34.7 % (34.0-46.0); HGB 10.9 gm/dL (11.4-16.0); Hypochromasia Slight; Lymphocytes # (A) 0.6 k/uL (1.0-4.8); Lymphocytes % (A) 4 %; MCH 29.3 pg (25.0-35.0); MCHC 31.5 g/dL (31.0-37.0); MCV 92.9 fL (80.0-100.0); Mean Platelet Volume 9.8; Monocytes # (A) 0.3 k/uL (0-1.0); Monocytes % (A) 2 %; Neutrophils # (A) 14.3 k/uL (1.3-7.7); Neutrophils % (A) 94 %; Platelet Count 153 k/uL (150-450); RBC 3.73 m/uL (3.80-5.40); RDW 14.6 % (11.5-15.5); WBC 15.2 k/uL (3.8-10.6)
[2017-05-31 04:44] LABS: Albumin 2.2 g/dL (3.5-5.0); Calcium 8.2 mg/dL (8.4-10.2); Magnesium 2.1 mg/dL (1.6-2.3); Phosphorus 4.5 mg/dL (2.5-4.5); Potassium 3.6 mmol/L (3.5-5.1); Total Bilirubin 0.2 mg/dL (0.2-1.3); Total Protein 4.5 g/dL (6.3-8.2)
[2017-05-31 05:24] LABS: ABG Base Excess 7.1 mmol/L; ABG HCO3 32 mmol/L (21-25); ABG Oxygen Saturation 87.8 % (94-97); ABG PCO2 56 mmHg (35-45); ABG PH 7.37 (7.35-7.45); ABG PO2 57 mmHg (83-108); ABG TCO2 34 mmol/L (19-24)
[2017-05-31 05:51] LABS: Glucose,Whole Blood 156 mg/dL (75-99)
[2017-05-31] MEDS ORDERED: POTASSIUM BICARBONATE/CIT AC 20 MEQ TABLET.EFF NG-TUBE SCH (06:00)
--- NOTE | 2017-05-31 07:19 | XR ---
EXAMINATION TYPE: XR chest 1V portable DATE OF EXAM: 05/31/2017 Comparison: 05/30/2017 Clinical History: 51-year-old female ET tube placement, pulm edema Findings: ET tube tip satisfactory at the level of the medial clavicular heads. NG tube courses below the diaph ragm. Heart remains enlarged with diffuse bilateral airspace opacities. Underlying small effusions difficul t to exclude. Aeration may have minimally worsened on the left. Impression: Severe diffuse bilateral airspace disease persists, possibly minimally worsened on the left.
--- NOTE | 2017-05-31 08:06 | P.PN ---
Subjective Principal diagnosis: Continuing care status post cardiac arrest. This is a continue progress note 51-year-old white female with known history of schizophrenia. The patient had cardiac arrest 2 days ago and is now stabilized with appropriate mechanical ventilation and cardiorespiratory support. The patient is nonresponsive. Objective - Vital Signs Vital signs: Vital Signs Temp 99.6 F 05/31/17 04:00 Pulse 72 05/31/17 07:35 Resp 23 05/31/17 07:00 BP 101/44 05/30/17 01:00 Pulse Ox 90 L 05/31/17 07:00 Intake & Output 05/30/17 05/31/17 05/31/17 18:59 06:59 18:59 Intake Total 4817.400 2004.107 90.467 Output Total 1615 460 Balance -131.357 779.107 90.467 Weight 110.3 kg Intake: IV 676 299 Sodium Chloride 0.9% 1, 640 260 000 ml @ 20 mls/hr IV . Q24H [facility] Rx#:[id number] pressure bag 36 39 Intake, IV Titration 687.643 515.107 90.467 Amount Azithromycin 500 mg In 250 Sodium Chloride 0.9% 250 ml @ 125 mls/hr IVPB DAILY [facility] Rx#:[id number] Propofol 1,000 mg In 387.643 465.107 90.467 Empty Bag 1 bag @ Titrate IV .Q0M [facility] Rx#: [id number] Valproate Sodium 500 mg 50 50 In Sodium Chloride 0.9% 50 ml @ 50 mls/hr IVPB Q12HR [facility] Rx#:[id number] Tube Feeding 90 395 Other 30 30 Output: Urine 1615 460 Other: Voiding Method Indwelling Catheter Indwelling Catheter ABP, PAP, CO, CI - Last Documented Arterial Blood Pressure 102/47 - Constitutional General appearance: Present: obese - EENT Eyes: Absent: abnormal pupil - Neck Neck: Absent: lymphadenopathy - Respiratory Respiratory: bilateral: diminished - Cardiovascular Rhythm: regular Abnormal Heart Sounds: Absent: S3 Gallop - Gastrointestinal General gastrointestinal: Present: soft. Absent: tenderness - Labs CBC & Chem 7: 05/31/17 04:10 05/31/17 04:10 Labs: Abnormal Lab Results - Last 24 Hours (Table) 05/30/17 05/30/17 05/30/17 Range/Units 12:28 17:46 23:50 WBC (3.8-10.6) k/uL RBC (3.80-5.40) m/uL Hgb (11.4-16.0) gm/dL Neutrophils # (1.3-7.7) k/uL Lymphocytes # (1.0-4.8) k/uL ABG pCO2 (35-45) mmHg ABG pO2 (83-108) mmHg ABG HCO3 (21-25) mmol/L ABG Total CO2 (19-24) mmol/L ABG O2 Saturation (94-97) % Carbon Dioxide (22-30) mmol/L BUN (7-17) mg/dL Glucose (74-99) mg/dL POC Glucose (mg/dL) 123 H 135 H 131 H (75-99) mg/dL Calcium (8.4-10.2) mg/dL AST (14-36) U/L Total Protein (6.3-8.2) g/dL Albumin (3.5-5.0) g/dL 05/31/17 05/31/17 05/31/17 Range/Units 04:10 04:10 05:18 WBC 15.2 H (3.8-10.6) k/uL RBC 3.73 L (3.80-5.40) m/uL Hgb 10.9 L (11.4-16.0) gm/dL Neutrophils # 14.3 H (1.3-7.7) k/uL Lymphocytes # 0.6 L (1.0-4.8) k/uL ABG pCO2 56 H (35-45) mmHg ABG pO2 57 L (83-108) mmHg ABG HCO3 32 H (21-25) mmol/L ABG Total CO2 34 H (19-24) mmol/L ABG O2 Saturation 87.8 L (94-97) % Carbon Dioxide 32 H (22-30) mmol/L BUN 26 H (7-17) mg/dL Glucose 163 H (74-99) mg/dL POC Glucose (mg/dL) (75-99) mg/dL Calcium 8.2 L (8.4-10.2) mg/dL AST 116 H (14-36) U/L Total Protein 4.5 L (6.3-8.2) g/dL Albumin 2.2 L (3.5-5.0) g/dL 05/31/17 Range/Units 05:50 WBC (3.8-10.6) k/uL RBC (3.80-5.40) m/uL Hgb (11.4-16.0) gm/dL Neutrophils # (1.3-7.7) k/uL Lymphocytes # (1.0-4.8) k/uL ABG pCO2 (35-45) mmHg ABG pO2 (83-108) mmHg ABG HCO3 (21-25) mmol/L ABG Total CO2 (19-24) mmol/L ABG O2 Saturation (94-97) % Carbon Dioxide (22-30) mmol/L BUN (7-17) mg/dL Glucose (74-99) mg/dL POC Glucose (mg/dL) 156 H (75-99) mg/dL Calcium (8.4-10.2) mg/dL AST (14-36) U/L Total Protein (6.3-8.2) g/dL Albumin (3.5-5.0) g/dL Microbiology - Last 24 Hours (Table) 05/26/17 22:53 Blood Culture - Preliminary Blood No Growth after 96 hours Assessment and Plan (1) Lethargy Current Visit: Yes Status: Acute Code(s): R53.83 - OTHER FATIGUE SNOMED Code(s): 944435561 (2) Acute exacerbation of chronic obstructive airways disease Current Visit: Yes Status: Acute Code(s): J44.1 - CHRONIC OBSTRUCTIVE PULMONARY DISEASE W (ACUTE) EXACERBATION SNOMED Code(s): 359407693 (3) Sepsis Current Visit: Yes Status: Acute Code(s): A41.9 - SEPSIS, UNSPECIFIED ORGANISM SNOMED Code(s): 14975967 (4) Seizure disorder Current Visit: No Status: Chronic Code(s): G40.909 - EPILEPSY, UNSP, NOT INTRACTABLE, WITHOUT STATUS EPILEPTICUS SNOMED Code(s): 437472574 (5) Cellulitis Current Visit: No Status: Acute Code(s): L03.90 - CELLULITIS, UNSPECIFIED SNOMED Code(s): 553136772 Plan: Continue current regimen of support. Check a.m. labs. We'll continue to follow. Prognosis is guarded but hopeful that we can slowly wean off mechanical ventilation. Discussed with family member otherwise Time with Patient: Less than 30
[2017-05-31] MEDS: CHLORHEXIDINE GLUCONATE 15 ML CUP MUCOUS MEM SCH ×2 (08:08→20:01)
[2017-05-31] MEDS: PANTOPRAZOLE 40 MG/10 ML VIAL IVP SCH (08:08)
[2017-05-31] MEDS: ENOXAPARIN 40 MG/0.4 ML SYRINGE SQ SCH (08:08)
[2017-05-31] MEDS: cloZAPine 100 MG TAB PO SCH ×2 (08:09→20:01)
[2017-05-31] MEDS: NYSTATIN 100,000 UNIT/GM POWD 15 GM TOPICAL SCH ×2 (08:10→20:00)
[2017-05-31] MEDS: VALPROATE SODIUM 500 MG in SODIUM CHLORIDE 0.9% 50 ML IVPB SCH ×2 (08:10→20:00)
--- NOTE | 2017-05-31 09:15 | PCN ---
PROCEDURE NOTE DATE OF PROCEDURE: 05/29/2017. PROCEDURE PERFORMED: Right radial arterial line insertion. ARTERIAL LINE PLACEMENT: Indications: Hemodynamic monitoring. A time-out was completed verifying correct patient, procedure, site, positioning, and implant(s) or special equipment if applicable. Devaughn's test was performed to ensure adequate perfusion. The patient's right wrist was prepped and draped in sterile fashion. 1% Lidocaine was used to anesthetize the area. An 18G Arrow arterial line was introduced into the right radial artery. The catheter was threaded over the guide wire and the needle was removed with appropriate pulsatile blood return. Blood loss was minimal. The catheter was then sutured in place to the skin and a sterile dressing applied. Perfusion to the extremity distal to the point of catheter insertion was checked and found to be adequate. The patient tolerated the procedure well and there were no complications. There were no immediate complications. MMODL / IJN: [id number] /
[2017-05-31] MEDS ORDERED: FUROSEMIDE 10 MG/ML 4 ML VIAL IV STA (10:54)
--- NOTE | 2017-05-31 11:07 | P.PN ---
Subjective Progress Note Date: 05/31/17 A 51-year-old female patient, morbidly obese with a body mass index of 44.5, known history of COPD and known history of bipolar disorder and seizure disorder maintained on a combination of Clozaril and Depakote on outpatient basis, came into the hospital initially for an acute COPD exacerbation and she had a in-house cardiopulmonary arrest. Apparently the patient was found to be unresponsive and she was in asystole. She required 15-20 minutes of cardiopulmonary cessation and following that she was brought in to the intensive care unit intubated on mechanical ventilator. The patient was initially seen by my partner and I am taking over the case today This morning the patient was taken off Diprivan. Since her cardiac arrest the patient was on high-dose of the prevent and currently she is off and she is at the point where she is being monitored neurologically and further neuro workup is being done to make sure there is no significant hypoxic encephalopathy. The patient already had a CAT scan of the brain on 05/29/2017 that showed no acute abnormality. EEG was performed this morning after stopping the Diprivan. It shows diffuse slowing without any burst suppression and final interpretation by the neurologist still pending for now. Meanwhile, the patient has developed diffuse breath and pulmonary infiltrates along with massive cardiomegaly on today's chest x-ray. Going earlier to the previous chest x-rays, the patient had massive cardiomegaly. The CT angios the chest that was done on admission showed no evidence of any pulmonary embolism, patchy areas of consolidation in the left and the right upper lobe without any significant lymphadenopathy. Meanwhile, the patient was becoming more tachypneic while off sedation. I switch her to a VC plus mode at the rate of 20, tidal volume of 400, FiO2 of 100 % and this morning she wasn't a PEEP of 10 with an pulse ox of 89% and I move the PEEP up to 12. The morning blood gases showed a pH of 7.37 with a pCO2 of 56 and pO2 of 57 and this was done and FiO2 of 70%. Note that with these changes, the patient became less tachypneic and her yesterday dropped down to the mid 20s. Meanwhile, her peak air pressures around 37, static pressure of around 33 on a PEEP of 10 with a tidal volume of 400. The patient is receiving IV fluids. The patient is on broad-spectrum antibiotic with IV Zosyn. No significant orotracheal secretion. She has been intubated by a #7.582. Afebrile. White cell count is 15.2. Neurologically, the patient does not withdraw to deep painful stimuli, no seizure activity has been noted. Pupils around 2-3 mm in size and sluggishly reactive to light. No nystagmus. No Babinski. No clonus. Positive cough and positive gag reflex. The Depakote levels have been therapeutic earlier. Objective - Vital Signs Vital signs: Vital Signs Temp 100.3 F H 05/31/17 08:00 Pulse 79 05/31/17 10:00 Resp 34 H 05/31/17 10:00 BP 101/44 05/30/17 01:00 Pulse Ox 93 L 05/31/17 10:00 Intake & Output 05/30/17 05/31/17 05/31/17 18:59 06:59 18:59 Intake Total 7117.461 9394.107 430.650 Output Total 1615 460 120 Balance -131.357 779.107 310.650 Weight 110.3 kg Intake: IV 676 299 69 Sodium Chloride 0.9% 1, 640 260 60 000 ml @ 20 mls/hr IV . Q24H [facility] Rx#:[id number] pressure bag 36 39 9 Intake, IV Titration 687.643 515.107 231.650 Amount Azithromycin 500 mg In 250 Sodium Chloride 0.9% 250 ml @ 125 mls/hr IVPB DAILY [facility] Rx#:[id number] Piperacillin-Tazobactam 3 50 .375 gm In Dextrose/Water 1 50ml.bag @ 12.5 mls/hr IVPB Q8HR [facility] Rx#: [id number] Propofol 1,000 mg In 387.643 465.107 131.650 Empty Bag 1 bag @ Titrate IV .Q0M [facility] Rx#: [id number] Valproate Sodium 500 mg 50 50 50 In Sodium Chloride 0.9% 50 ml @ 50 mls/hr IVPB Q12HR [facility] Rx#:[id number] Tube Feeding 90 395 100 Other 30 30 30 Output: Urine 1615 460 120 Other: Voiding Method Indwelling Catheter Indwelling Catheter Indwelling Catheter ABP, PAP, CO, CI - Last Documented Arterial Blood Pressure 140/54 - Exam Gen. appearance the patient is calm comfortable likely distress. She is currently off sedation. Intubated on a mechanical ventilator. She has an orotracheal and orogastric tube are both of them are in place. She has some foaminess and some rest or secretions on today's evaluation.Head exam was generally normal. There was no scleral icterus or corneal arcus. Mucous membranes were moist. Neck is short and supple. Orogastric and orotracheal tube are both in place. No goiter or neck masses. Lungs sounds are diminished bilaterally along with that there is some scattered expiratory wheezes heard throughout the lung gimenez.Cardiac exam revealed the PMI to be normally situated and sized. The rhythm was regular and no extrasystoles were noted during several minutes of auscultation. The first and second heart sounds were normal and physiologic splitting of the second heart sound was noted. There were no murmurs, rubs, clicks, or gallops. Abdomen is slightly distended soft. There is no direct tenderness rebound tensile guarding at this point. No organomegaly.Examination of the extremities revealed easily palpable radial, femoral and pedal pulses. There was no cyanosis, clubbing or edema. Neurologically the patient is not withdrawing to deep painful stimuli. She is currently Process of getting a sedation holiday. She is off Diprivan and she has been off of it for the past 1 hour. No nystagmus. No clonus no facial asymmetry. No withdrawal to deep painful stimuli. Negative for Babinski and clonus. Sensory and motor functions cannot be accurately elicited. DTRs +1 symmetric in all 4 extremities.Examination of the skin revealed no evidence of significant rashes, suspicious appearing nevi or other concerning lesions. - Labs CBC & Chem 7: 05/31/17 04:10 05/31/17 04:10 Labs: Abnormal Lab Results - Last 24 Hours (Table) 05/30/17 05/30/17 05/30/17 Range/Units 12:28 17:46 23:50 WBC (3.8-10.6) k/uL RBC (3.80-5.40) m/uL Hgb (11.4-16.0) gm/dL Neutrophils # (1.3-7.7) k/uL Lymphocytes # (1.0-4.8) k/uL ABG pCO2 (35-45) mmHg ABG pO2 (83-108) mmHg ABG HCO3 (21-25) mmol/L ABG Total CO2 (19-24) mmol/L ABG O2 Saturation (94-97) % Carbon Dioxide (22-30) mmol/L BUN (7-17) mg/dL Glucose (74-99) mg/dL POC Glucose (mg/dL) 123 H 135 H 131 H (75-99) mg/dL Calcium (8.4-10.2) mg/dL AST (14-36) U/L Total Protein (6.3-8.2) g/dL Albumin (3.5-5.0) g/dL 05/31/17 05/31/17 05/31/17 Range/Units 04:10 04:10 05:18 WBC 15.2 H (3.8-10.6) k/uL RBC 3.73 L (3.80-5.40) m/uL Hgb 10.9 L (11.4-16.0) gm/dL Neutrophils # 14.3 H (1.3-7.7) k/uL Lymphocytes # 0.6 L (1.0-4.8) k/uL ABG pCO2 56 H (35-45) mmHg ABG pO2 57 L (83-108) mmHg ABG HCO3 32 H (21-25) mmol/L ABG Total CO2 34 H (19-24) mmol/L ABG O2 Saturation 87.8 L (94-97) % Carbon Dioxide 32 H (22-30) mmol/L BUN 26 H (7-17) mg/dL Glucose 163 H (74-99) mg/dL POC Glucose (mg/dL) (75-99) mg/dL Calcium 8.2 L (8.4-10.2) mg/dL AST 116 H (14-36) U/L Total Protein 4.5 L (6.3-8.2) g/dL Albumin 2.2 L (3.5-5.0) g/dL 05/31/17 Range/Units 05:50 WBC (3.8-10.6) k/uL RBC (3.80-5.40) m/uL Hgb (11.4-16.0) gm/dL Neutrophils # (1.3-7.7) k/uL Lymphocytes # (1.0-4.8) k/uL ABG pCO2 (35-45) mmHg ABG pO2 (83-108) mmHg ABG HCO3 (21-25) mmol/L ABG Total CO2 (19-24) mmol/L ABG O2 Saturation (94-97) % Carbon Dioxide (22-30) mmol/L BUN (7-17) mg/dL Glucose (74-99) mg/dL POC Glucose (mg/dL) 156 H (75-99) mg/dL Calcium (8.4-10.2) mg/dL AST (14-36) U/L Total Protein (6.3-8.2) g/dL Albumin (3.5-5.0) g/dL Microbiology - Last 24 Hours (Table) 05/26/17 22:53 Blood Culture - Preliminary Blood No Growth after 96 hours Assessment and Plan Plan: Assessment 1 acute cardiac pulmonary arrest with a downtime of 15-20 minutes. The patient had CPR and currently she has a normal sinus rhythm and there is return of spontaneous circulation blood pressure. Meanwhile, the patient has not had an echocardiogram yet and this needs to be done as soon as possible to assess her LV function. Chest x-ray showing cardiomegaly with diffuse but the pulmonary infiltrates. Rule out underlying aspiration/ARDS/cardiogenic pulmonary edema 2 acute on chronic hypoxic respiratory failure with diffuse breath and pulmonary infiltrates. Initially the patient had some pneumonia patches/ consolidation currently she has diffuse but the pulmonary infiltrates. Rule out superimposed acute lung injury/ARDS post cardiac arrest. Rule out aspiration. Rule out cardiogenic pulmonary edema 3 morbid obesity with a BMI of 44.5 4 COPD with acute exacerbation at time of admission with suspected underlying pneumonia 5 hypoxic encephalopathy is suspected currently the patient is being given a sedation holiday 6 seizure disorder currently on Depakote and the levels on admission was therapeutic 7 smoker 8 E. coli urine checked infection 9 bipolar disorder 10 chronic hypercapnic respiratory failure likely secondary to COPD/obesity. Underlying obstructive sleep apnea cannot be completely eliminated Plan Keep the patient off Diprivan. Sedation holiday. [id number]-[id number]-[id number] status. Frequent neuro exams. Agree on EEG. Will need a follow-up CAT scan of the brain and we'll need also a baseline echocardiogram to assess LV function. Keep the IV fluids at 20 mL an hour. Give the patient trial of Lasix 40 mg IV push. The patient has been placed on VC plus mode at the rate of 20 with tidal volume of 400 with an FiO2 of 100% and a PEEP of 12. We'll gradually wean down the FiO2 as tolerated to maintain a saturation above 90%. Recheck the Depakote level. Continue with IV Zosyn. Obtain sputum Gram stain and culture. Lovenox for DVT prophylaxis. Continue the tube feeds and make the appropriate adjustments knowing that the patient is currently off Diprivan. Condition is critical. We will discuss the findings with the family and updated them on her progress. Critically care evaluation, more than 35 minutes. Time with Patient: Greater than 30
[2017-05-31 12:21] LABS: Glucose,Whole Blood 143 mg/dL (75-99)
--- NOTE | 2017-05-31 15:10 | EEG ---
ELECTROENCEPHALOGRAM REPORT DATE OF SERVICE: 05/31/2017 REASON FOR TESTING: Altered mental status, cardiac arrest. DESCRIPTION OF THE PROCEDURE: This EEG was performed using a 21 channel digital electroencephalograph, following international 10-20 system. DESCRIPTION OF THE RECORDING: From the beginning of the tracing, and with the patient's eyes closed, the background rhythm was mostly consisting of 8 Hz alpha frequency in the posterior occipital leads. No obvious asymmetry is seen. Photic stimulation was performed with no driving response seen. No pathological waves were elicited. Hyperventilation was not performed. Rare muscle artifacts are seen. Blink artifacts are noticed throughout the tracing. No epileptiform discharges were seen. Her EKG lead showed a regular rate and rhythm. INTERPRETATION: This awake EEG can be considered within normal limits. There was no asymmetry seen. No epileptiform discharges were noticed. The absence of epileptiform discharges does not rule out the diagnosis of epilepsy, therefore clinical correlation is recommended. MMODL / IJN: [id number] /
[2017-05-31] MEDS: ACETAMINOPHEN IV (For NPO) 1,000 MG in EMPTY BAG 1 BAG IVPB PRN (16:35)
--- NOTE | 2017-05-31 17:27 | P.PN ---
Subjective Progress Note Date: 05/31/17 Patient is a 51-year-old female who is being followed by the neurology service for altered mental status following cardiopulmonary arrest. The etiology of the cardiopulmonary arrest is unknown. Patient was ready to be discharged from the hospital after being treated for cellulitis. Patient felt as if she was could have a seizure and called for the nurse. The nurse gave the patient [facility] IM because the patient had pulled her IV out. Patient went into cardiopulmonary arrest. Patient had resuscitation for about 15-20 minutes before return of spontaneous circulation. Patient was transferred to the ICU and is intubated on mechanical ventilation. She is sedated on propofol. Patient had sedation holiday and patient did not show neurological improvement. Patient was started on tube feedings. Patient had a CT angiogram which was negative for pulmonary embolism. She does have history of seizure disorder. EEG was to be done this morning, however, patient was found to have lites and was treated for such. EEG will be performed tomorrow morning. The time of my evaluation, patient does not appear to be in any acute distress. 05/31/2017 Patient is a 51-year-old female who is being followed by the neurology service altered mental status following cardiopulmonary arrest. Patient was taken off sedation and had an EEG done this morning. EEG was normal and did not show evidence of epileptiform discharges. Computed tomography scan of the brain done 05/29/2017 showed no acute abnormality. Patient remains intubated on mechanical ventilation. Patient was placed back on sedation due to high respiratory rate. No seizure activity has been reported. Staff informs me patient does not withdraw to deep painful stimuli even off of sedation. Pupils are 2 mm and sluggish to react. Patient has cough and gag reflex. Depakote level was therapeutic on 05/26/2017. Labs are negative for influenza A and B. Patient has elevated d-dimer however chest CTA was negative for pulmonary embolism. At the time of my evaluation, patient is intubated on mechanical ventilation and sedated on propofol. Objective - Vital Signs Vital signs: Vital Signs Temp 102.4 F H 05/31/17 16:00 Pulse 88 05/31/17 17:00 Resp 36 H 05/31/17 17:00 BP 101/44 05/30/17 01:00 Pulse Ox 90 L 05/31/17 17:00 Intake & Output 05/30/17 05/31/17 05/31/17 18:59 06:59 18:59 Intake Total 3714.724 3771.107 931.650 Output Total 4662 787 9302 Balance -131.357 779.107 -438.350 Weight 110.3 kg 110.3 kg Intake: IV 676 299 230 Sodium Chloride 0.9% 1, 640 260 200 000 ml @ 20 mls/hr IV . Q24H [place] Rx#:[id number] pressure bag 36 39 30 Intake, IV Titration 687.643 515.107 281.650 Amount Azithromycin 500 mg In 250 Sodium Chloride 0.9% 250 ml @ 125 mls/hr IVPB DAILY [place] Rx#:[id number] Piperacillin-Tazobactam 3 100 .375 gm In Dextrose/Water 1 50ml.bag @ 12.5 mls/hr IVPB Q8HR [place] Rx#: [id number] Propofol 1,000 mg In 387.643 465.107 131.650 Empty Bag 1 bag @ Titrate IV .Q0M [place] Rx#: [id number] Valproate Sodium 500 mg 50 50 50 In Sodium Chloride 0.9% 50 ml @ 50 mls/hr IVPB Q12HR [place] Rx#:[id number] Tube Feeding 90 395 360 Other 30 30 60 Output: Urine 3574 019 9099 Other: Voiding Method Indwelling Catheter Indwelling Catheter Indwelling Catheter ABP, PAP, CO, CI - Last Documented Arterial Blood Pressure 136/61 - Exam PHYSICAL EXAM: GENERAL APPEARANCE: Patient is a well-developed, obese female who is intubated on mechanical ventilation HEENT: Normocephalic, atraumatic, no obvious facial asymmetry is seen. Neck is supple with no masses felt. CARDIOVASCULAR: Regular rate and rhythm. ABDOMEN: Soft EXTREMITIES: Show no clubbing. NEUROLOGICAL EXAM: A meaningful neurological exam could not be performed due to patient being intubated on mechanical ventilation and sedated on propofol. - Labs CBC & Chem 7: 05/31/17 04:10 05/31/17 04:10 Labs: Abnormal Lab Results - Last 24 Hours (Table) 05/30/17 05/30/17 05/31/17 Range/Units 17:46 23:50 04:10 WBC 15.2 H (3.8-10.6) k/uL RBC 3.73 L (3.80-5.40) m/uL Hgb 10.9 L (11.4-16.0) gm/dL Neutrophils # 14.3 H (1.3-7.7) k/uL Lymphocytes # 0.6 L (1.0-4.8) k/uL ABG pCO2 (35-45) mmHg ABG pO2 (83-108) mmHg ABG HCO3 (21-25) mmol/L ABG Total CO2 (19-24) mmol/L ABG O2 Saturation (94-97) % Carbon Dioxide (22-30) mmol/L BUN (7-17) mg/dL Glucose (74-99) mg/dL POC Glucose (mg/dL) 135 H 131 H (75-99) mg/dL Calcium (8.4-10.2) mg/dL AST (14-36) U/L Total Protein (6.3-8.2) g/dL Albumin (3.5-5.0) g/dL 05/31/17 05/31/17 05/31/17 Range/Units 04:10 05:18 05:50 WBC (3.8-10.6) k/uL RBC (3.80-5.40) m/uL Hgb (11.4-16.0) gm/dL Neutrophils # (1.3-7.7) k/uL Lymphocytes # (1.0-4.8) k/uL ABG pCO2 56 H (35-45) mmHg ABG pO2 57 L (83-108) mmHg ABG HCO3 32 H (21-25) mmol/L ABG Total CO2 34 H (19-24) mmol/L ABG O2 Saturation 87.8 L (94-97) % Carbon Dioxide 32 H (22-30) mmol/L BUN 26 H (7-17) mg/dL Glucose 163 H (74-99) mg/dL POC Glucose (mg/dL) 156 H (75-99) mg/dL Calcium 8.2 L (8.4-10.2) mg/dL AST 116 H (14-36) U/L Total Protein 4.5 L (6.3-8.2) g/dL Albumin 2.2 L (3.5-5.0) g/dL 05/31/17 Range/Units 12:18 WBC (3.8-10.6) k/uL RBC (3.80-5.40) m/uL Hgb (11.4-16.0) gm/dL Neutrophils # (1.3-7.7) k/uL Lymphocytes # (1.0-4.8) k/uL ABG pCO2 (35-45) mmHg ABG pO2 (83-108) mmHg ABG HCO3 (21-25) mmol/L ABG Total CO2 (19-24) mmol/L ABG O2 Saturation (94-97) % Carbon Dioxide (22-30) mmol/L BUN (7-17) mg/dL Glucose (74-99) mg/dL POC Glucose (mg/dL) 143 H (75-99) mg/dL Calcium (8.4-10.2) mg/dL AST (14-36) U/L Total Protein (6.3-8.2) g/dL Albumin (3.5-5.0) g/dL Microbiology - Last 24 Hours (Table) 05/30/17 22:45 Gram Stain - Preliminary Sputum Sputum Culture - Preliminary 05/26/17 22:53 Blood Culture - Preliminary Blood No Growth after 96 hours Assessment and Plan Plan: Impression: 1. Cardiopulmonary arrest 2. Seizure disorder 3. Sepsis Recommendations: It is not clear what the cause is of patient's sudden cardiopulmonary arrest. Prior to arrest, she stated she felt like she was going to have a seizure. Patient is intubated on mechanical ventilation. She is sedated on propofol. Computed tomography scan of the brain was done which showed no acute process. EEG was normal. Patient will have daily sedation holiday with neurological checks. Continue ICU management. Continue Depakote 500 mg twice a day for seizures. As mentioned above, Depakote level was therapeutic. Continue neurological checks. Continue seizure precautions. I will continue to follow with you. Further recommendations to follow. I performed an examination of the patient and discussed the management with the JAMMER HOOKER. I have reviewed the JAMMER HOOKER notes and agree with the findings and plan of care.
[2017-05-31 18:13] LABS: Glucose,Whole Blood 152 mg/dL (75-99)
[2017-05-31 20:33] LABS: ABG Base Excess 9.6 mmol/L; ABG HCO3 33 mmol/L (21-25); ABG Oxygen Saturation 88.9 % (94-97); ABG PCO2 46 mmHg (35-45); ABG PH 7.47 (7.35-7.45); ABG PO2 53 mmHg (83-108); ABG TCO2 35 mmol/L (19-24)
[2017-05-31] MEDS ORDERED: VANCOMYCIN IV PER PHARMACY 1 EACH MISC MISCELLANE PRN (21:28)
[2017-05-31] MEDS ORDERED: VANCOMYCIN 2,000 MG in SODIUM CHLORIDE 0.9% 500 ML IVPB SCH (22:00)
--- NOTE | 2017-05-31 22:46 | PN ---
PROGRESS NOTE DATE OF SERVICE: 05/31/2017. REASON FOR FOLLOW UP: Aspiration pneumonia. INTERVAL HISTORY: The patient did have a low-grade fever this morning, subsequently had a fever of 102.4 degrees Fahrenheit. The patient remains to be on the vent requiring remains to be unresponsive. Unable to acquire any history. EXAMINATION: Blood pressure 139/52 with a pulse of 102, temperature 101, she is 99% on 70% FiO2. General description is a middle aged female lying in bed in no distress. Respiratory system: Unlabored breathing. Coarse breath sounds bilaterally. Heart S1-S2 regular rate and rhythm. Abdomen soft, no tenderness. LABS: Hemoglobin is 10.9, white count 15.2, BUN of 26, creatinine 1.03. Sputum requested, currently pending. DIAGNOSTIC IMPRESSION AND PLAN: Patient with a fever and elevated white count with status post cardiac arrest with concern likely aspiration pneumonia. The patient now does have more fever. We will repeat blood cultures and add vancomycin to the Zosyn that was started yesterday. Overall prognosis remains to be guarded. Continue supportive care. MMODL / IJN: [id number] /
[2017-06-01] MEDS: PIPERACILLIN-TAZOBACTAM 3.375 GM in DEXTROSE/WATER 1 50ML.BAG IVPB SCH ×3 (00:20→15:28)
[2017-06-01 00:31] LABS: Glucose,Whole Blood 140 mg/dL (75-99)
[2017-06-01] MEDS: INSULIN ASPART 100 UNIT/ML 1 ML 10 ML VIAL SQ SCH ×4 (00:37→17:51)
[2017-06-01] MEDS: IPRATROPIUM-ALBUTEROL 3 ML NEB INHALATION SCH ×5 (03:06→19:29)
[2017-06-01] MEDS: SODIUM CHLORIDE 0.9% 1,000 ML IV SCH ×2 (04:10→11:24)
[2017-06-01 04:16] LABS: HCT 31.2 % (34.0-46.0); Hypochromasia Slight; MCH 29.7 pg (25.0-35.0); MCHC 31.9 g/dL (31.0-37.0); MCV 92.9 fL (80.0-100.0); Mean Platelet Volume 10.8; Platelet Count 169 k/uL (150-450); RBC 3.36 m/uL (3.80-5.40); RDW 14.7 % (11.5-15.5); WBC 10.9 k/uL (3.8-10.6)
[2017-06-01] MEDS: PROPOFOL 1,000 MG in EMPTY BAG 1 BAG IV SCH ×6 (04:29→18:44)
[2017-06-01 04:48] LABS: Albumin 2.1 g/dL (3.5-5.0); Calcium 8.5 mg/dL (8.4-10.2); Potassium 3.4 mmol/L (3.5-5.1); Total Bilirubin 0.1 mg/dL (0.2-1.3); Total Protein 4.4 g/dL (6.3-8.2)
[2017-06-01 04:53] LABS: Valproic Acid (Depakene) 40.7 ug/mL
[2017-06-01] MEDS ORDERED: Potassium Replacement Protocol 1 EACH MISC MISCELLANE PRN (05:00)
[2017-06-01] MEDS: POTASSIUM BICARBONATE/CIT AC 20 MEQ TABLET.EFF NG-TUBE SCH ×2 (05:25→06:28)
[2017-06-01 05:31] LABS: ABG Base Excess 7.3 mmol/L; ABG HCO3 32 mmol/L (21-25); ABG Oxygen Saturation 91.8 % (94-97); ABG PCO2 51 mmHg (35-45); ABG PH 7.41 (7.35-7.45); ABG PO2 63 mmHg (83-108); ABG TCO2 34 mmol/L (19-24)
[2017-06-01 05:31] LABS: Glucose,Whole Blood 174 mg/dL (75-99)
--- NOTE | 2017-06-01 07:17 | P.PN ---
Subjective Principal diagnosis: Continuing care status post cardiac arrest. , Significant continue present on a 51-year-old white female who had sudden onset of arrest, the patient has been struggling for weaning parameters. Increased FiO2's compared to yesterday is noted. Objective - Vital Signs Vital signs: Vital Signs Temp 99.1 F 06/01/17 04:00 Pulse 69 06/01/17 07:00 Resp 30 H 06/01/17 07:00 BP 101/44 05/30/17 01:00 Pulse Ox 96 06/01/17 07:00 Intake & Output 05/31/17 06/01/17 06/01/17 18:59 06:59 18:59 Intake Total 008.774 5587.717 Output Total 1445 665 Balance -445.350 545.717 Weight 110.3 kg 111.5 kg Intake: IV 253 279 Sodium Chloride 0.9% 1, 220 240 000 ml @ 20 mls/hr IV . Q24H [place] Rx#:[id number] pressure bag 33 39 Intake, IV Titration 281.650 136.717 Amount Piperacillin-Tazobactam 3 100 .375 gm In Dextrose/Water 1 50ml.bag @ 12.5 mls/hr IVPB Q8HR [place] Rx#: [id number] Propofol 1,000 mg In 131.650 136.717 Empty Bag 1 bag @ Titrate IV .Q0M [place] Rx#: [id number] Valproate Sodium 500 mg 50 In Sodium Chloride 0.9% 50 ml @ 50 mls/hr IVPB Q12HR [place] Rx#:[id number] Tube Feeding 405 705 Other 60 90 Output: Urine 1445 665 Other: Voiding Method Indwelling Catheter Indwelling Catheter ABP, PAP, CO, CI - Last Documented Arterial Blood Pressure 122/57 - Constitutional General appearance: Absent: average body habitus - EENT Eyes: Absent: abnormal pupil - Respiratory Respiratory: bilateral: rhonchi - Cardiovascular Rhythm: regular Heart sounds: normal: S1, S2 Abnormal Heart Sounds: Absent: S3 Gallop - Gastrointestinal General gastrointestinal: Present: soft. Absent: tenderness - Psychiatric Psychiatric Comment(s): The patient is sedated otherwise. - Labs CBC & Chem 7: 06/01/17 04:05 06/01/17 04:05 Labs: Abnormal Lab Results - Last 24 Hours (Table) 04/05/31/17 05/31/17 Range/Units 12:18 18:11 20:29 WBC (3.8-10.6) k/uL RBC (3.80-5.40) m/uL Hgb (11.4-16.0) gm/dL Hct (34.0-46.0) % ABG pH 7.47 H (7.35-7.45) ABG pCO2 46 H (35-45) mmHg ABG pO2 53 L (83-108) mmHg ABG HCO3 33 H (21-25) mmol/L ABG Total CO2 35 H (19-24) mmol/L ABG O2 Saturation 88.9 L (94-97) % Potassium (3.5-5.1) mmol/L Carbon Dioxide (22-30) mmol/L BUN (7-17) mg/dL Creatinine (0.52-1.04) mg/dL Glucose (74-99) mg/dL POC Glucose (mg/dL) 143 H 152 H (75-99) mg/dL Total Bilirubin (0.2-1.3) mg/dL AST (14-36) U/L Total Protein (6.3-8.2) g/dL Albumin (3.5-5.0) g/dL 06/01/17 06/01/17 06/01/17 Range/Units 00:29 04:05 04:05 WBC 10.9 H (3.8-10.6) k/uL RBC 3.36 L (3.80-5.40) m/uL Hgb 10.0 L (11.4-16.0) gm/dL Hct 31.2 L (34.0-46.0) % ABG pH (7.35-7.45) ABG pCO2 (35-45) mmHg ABG pO2 (83-108) mmHg ABG HCO3 (21-25) mmol/L ABG Total CO2 (19-24) mmol/L ABG O2 Saturation (94-97) % Potassium 3.4 L (3.5-5.1) mmol/L Carbon Dioxide 31 H (22-30) mmol/L BUN 35 H (7-17) mg/dL Creatinine 1.70 H (0.52-1.04) mg/dL Glucose 161 H (74-99) mg/dL POC Glucose (mg/dL) 140 H (75-99) mg/dL Total Bilirubin 0.1 L (0.2-1.3) mg/dL AST 193 H (14-36) U/L Total Protein 4.4 L (6.3-8.2) g/dL Albumin 2.1 L (3.5-5.0) g/dL 06/01/17 06/01/17 Range/Units 05:28 05:29 WBC (3.8-10.6) k/uL RBC (3.80-5.40) m/uL Hgb (11.4-16.0) gm/dL Hct (34.0-46.0) % ABG pH (7.35-7.45) ABG pCO2 51 H (35-45) mmHg ABG pO2 63 L (83-108) mmHg ABG HCO3 32 H (21-25) mmol/L ABG Total CO2 34 H (19-24) mmol/L ABG O2 Saturation 91.8 L (94-97) % Potassium (3.5-5.1) mmol/L Carbon Dioxide (22-30) mmol/L BUN (7-17) mg/dL Creatinine (0.52-1.04) mg/dL Glucose (74-99) mg/dL POC Glucose (mg/dL) 174 H (75-99) mg/dL Total Bilirubin (0.2-1.3) mg/dL AST (14-36) U/L Total Protein (6.3-8.2) g/dL Albumin (3.5-5.0) g/dL Microbiology - Last 24 Hours (Table) 05/26/17 22:53 Blood Culture - Preliminary Blood No Growth after 120 hours 05/30/17 18:30 Blood Culture - Preliminary Blood No Growth after 24 hours 05/30/17 22:45 Gram Stain - Preliminary Sputum Sputum Culture - Preliminary Assessment and Plan (1) Lethargy Current Visit: Yes Status: Acute Code(s): R53.83 - OTHER FATIGUE SNOMED Code(s): 027196570 (2) Acute exacerbation of chronic obstructive airways disease Current Visit: Yes Status: Acute Code(s): J44.1 - CHRONIC OBSTRUCTIVE PULMONARY DISEASE W (ACUTE) EXACERBATION SNOMED Code(s): 770904322 (3) Sepsis Current Visit: Yes Status: Acute Code(s): A41.9 - SEPSIS, UNSPECIFIED ORGANISM SNOMED Code(s): 32390423 (4) Seizure disorder Current Visit: No Status: Chronic Code(s): G40.909 - EPILEPSY, UNSP, NOT INTRACTABLE, WITHOUT STATUS EPILEPTICUS SNOMED Code(s): 195443037 (5) Cellulitis Current Visit: No Status: Acute Code(s): L03.90 - CELLULITIS, UNSPECIFIED SNOMED Code(s): 424551469 Plan: Continue current regimen or treatment. Prognosis is very guarded secondary to her decline acutely with history of arrest. We'll continue to follow with business rules analyst/critical care.
--- NOTE | 2017-06-01 07:40 | XR ---
EXAMINATION TYPE: XR chest 1V portable DATE OF EXAM: 06/01/2017 CLINICAL HISTORY: Difficulty breathing and pulmonary edema progress study. TECHNIQUE: Single AP portable semiupright view of the chest is obtained. COMPARISON: Chest x-ray from one day earlier and older studies. CTA chest from 5 days ago. FINDINGS: An endotracheal and orogastric tube are stable in appearance. There is persistent cardiome [place] with diffuse bilateral opacities. No large pleural effusion or pneumothorax is evident bilateral ly. Osseous structures are intact. IMPRESSION: Overall stable findings, cardiomegaly with multifocal bilateral edema and/or infiltrate s not significantly changed from yesterday but marked worsening since admission for May 26, 2017. C onsider ARDS.
[2017-06-01] MEDS: ENOXAPARIN 40 MG/0.4 ML SYRINGE SQ SCH (08:36)
[2017-06-01] MEDS: CHLORHEXIDINE GLUCONATE 15 ML CUP MUCOUS MEM SCH ×2 (08:36→21:14)
[2017-06-01] MEDS: cloZAPine 100 MG TAB PO SCH ×2 (08:36→21:14)
[2017-06-01] MEDS: PANTOPRAZOLE 40 MG/10 ML VIAL IVP SCH (08:37)
[2017-06-01] MEDS ORDERED: POTASSIUM BICARBONATE/CIT AC 20 MEQ TABLET.EFF NG-TUBE SCH (09:00)
[2017-06-01] MEDS: VALPROATE SODIUM 500 MG in SODIUM CHLORIDE 0.9% 50 ML IVPB SCH ×3 (09:01→21:15)
[2017-06-01] MEDS: NYSTATIN 100,000 UNIT/GM POWD 15 GM TOPICAL SCH ×2 (09:02→21:15)
--- NOTE | 2017-06-01 09:26 | ECHOF ---
Referral Reason:cardiac arrest MEASUREMENTS -------- HEIGHT: 157.5 cm WEIGHT: 110.2 kg BP: 140/54 RVIDd: 2.0 cm (< 3.3) IVSd: 1.0 cm (0.6 - 1.1) LVIDd: 5.3 cm (3.9 - 5.3) LVPWd: 1.1 cm (0.6 - 1.1) IVSs: 1.8 cm LVIDs: 3.6 cm LVPWs: 1.3 cm LA Diam: 3.0 cm (2.7 - 3.8) LAESV Index (A-L): 13.01 ml/m Ao Diam: 2.4 cm (2.0 - 3.7) AV Cusp: 2.0 cm (1.5 - 2.6) MV EXCURSION: 20.174 mm (> 18.000) MV EF SLOPE: 106 mm/s (70 - 150) EPSS: 0.7 cm MV E Jamal: 1.10 m/s MV DecT: 172 ms MV A Jamal: 0.78 m/s MV E/A Ratio: 1.41 AV maxP.21 mmHg AV meanP.26 mmHg FINDINGS -------- Sinus rhythm. This was a technically adequate study. The left ventricular size is normal. There is borderline concentric left ventricular hypertrophy. Overall left ventricular systolic function is normal with, an EF between 55 - 60 %. The right ventricle is normal in size. The global wall thickness of the right ventricle is mildly e nlarged. Normal LA size by volume 22+/-6 ml/m2. The right atrium is normal in size. The aortic valve is trileaflet and appears structurally normal. Peak/mean gradient across the Aorti c Valve is 18.21mmHg / 9.26mmHg. Mild mitral annular calcification present. The tricuspid valve appears structurally normal. Trace/mild (physiologic) pulmonic regurgitation. The aortic root size is normal. IVC Not well visulized. There is a small, generalized pericardial effusion present. CONCLUSIONS -------- 1. Sinus rhythm. 2. This was a technically adequate study. 3. The left ventricular size is normal. 4. There is borderline concentric left ventricular hypertrophy. 5. Overall left ventricular systolic function is normal with, an EF between 55 - 60 %. 6. The right ventricle is normal in size. 7. The global wall thickness of the right ventricle is mildly enlarged. 8. Normal LA size by volume 22+/-6 ml/m2. 9. The right atrium is normal in size. 10. The aortic valve is trileaflet and appears structurally normal. 11. Peak/mean gradient across the Aortic Valve is 18.21mmHg / 9.26mmHg. 12. Mild mitral annular calcification present. 13. The tricuspid valve appears structurally normal. 14. Trace/mild (physiologic) pulmonic regurgitation. 15. The aortic root size is normal. 16. IVC Not well visulized. 17. There is a small, generalized pericardial effusion present. STEEL SPAR OPERATOR: Marya Vidales RDCS
--- NOTE | 2017-06-01 11:16 | CT ---
EXAMINATION TYPE: CT brain wo con DATE OF EXAM: 06/01/2017 COMPARISON: 05/29/2017 HISTORY: Decreased mental status CT DLP: 1090.4 mGycm. Automated Exposure Control for Dose Reduction was Utilized. TECHNIQUE: CT scan of the head is performed without contrast. FINDINGS: There is no acute intracranial hemorrhage, mass effect, or midline shift identified. No suspicious extra-axial fluid collection. The ventricles and sulci are within normal limits in size. The globes are intact. Pansinusitis is seen as inspissated secretions within the frontal sinuses and mucosal thickening within the ethmoid, sphenoid and maxillary sinuses. Scant fluid is also seen withi n the bilateral mastoid air cells. Secretions are noted within the nasopharynx and accumulated within the posterior nasopharynx dependently. There is rightward nasal septal deviation incidentally noted. IMPRESSION: 1. No acute intracranial process or significant change from the prior exam of 05/29/2017. 2. Pansinusitis with accumulation of secretions in the posterior nasopharynx.
[2017-06-01 11:17] LABS: Glucose,Whole Blood 144 mg/dL (75-99)
--- NOTE | 2017-06-01 11:22 | CT ---
EXAMINATION TYPE: CT chest wo con DATE OF EXAM: 06/01/2017 COMPARISON: 05/27/2017 HISTORY: Follow up scan per RN. Ventilatory dependent respiratory failure. CT DLP: 789 mGycm. Automated Exposure Control for Dose Reduction was Utilized. TECHNIQUE: CT scan of the thorax is performed without IV contrast. FINDINGS: LUNGS: The endotracheal tube terminates approximately 1.2 cm from the jef. There is significant wo rsening of bilateral airspace disease in comparison to the prior CT thorax dated 05/27/2017. These are predominantly alveolar and more confluent centrally than peripherally. Surrounding groundglass opaci ties are seen in addition to interstitial edema demonstrated as interlobular septal thickening and sm all bilateral pleural effusions, right greater than left. Mild paraseptal emphysematous changes are s een at the lung apices. MEDIASTINUM: Lack of IV contrast is noted to limit evaluation for mediastinal and especially hilar ad enopathy. There are no pathologic-appearing hilar or mediastinal lymph nodes. Prominent mediastinal l ymph nodes maintain normal fatty connor. No axillary adenopathy. No cardiomegaly or pericardial effus ion is seen. Prominent epicardial mediastinal fat is present. OTHER: Enteric tube courses beyond the gastroesophageal junction into the gastric body. IMPRESSION: Significantly worsened bilateral predominantly alveolar airspace disease with interstitial edema. Dis tribution favors ARDS or pulmonary hemorrhage. Associated small pleural effusions, right and left are also present.
[2017-06-01 11:39] VITALS: BMI 44.9
--- NOTE | 2017-06-01 12:16 | P.PN ---
Subjective Progress Note Date: 06/01/17 A 51-year-old female patient, morbidly obese with a body mass index of 44.5, known history of COPD and known history of bipolar disorder and seizure disorder maintained on a combination of Clozaril and Depakote on outpatient basis, came into the hospital initially for an acute COPD exacerbation and she had a in-house cardiopulmonary arrest. Apparently the patient was found to be unresponsive and she was in asystole. She required 15-20 minutes of cardiopulmonary cessation and following that she was brought in to the intensive care unit intubated on mechanical ventilator. The patient was initially seen by my partner and I am taking over the case today This morning the patient was taken off Diprivan. Since her cardiac arrest the patient was on high-dose of the prevent and currently she is off and she is at the point where she is being monitored neurologically and further neuro workup is being done to make sure there is no significant hypoxic encephalopathy. The patient already had a CAT scan of the brain on 05/29/2017 that showed no acute abnormality. EEG was performed this morning after stopping the Diprivan. It shows diffuse slowing without any burst suppression and final interpretation by the neurologist still pending for now. Meanwhile, the patient has developed diffuse breath and pulmonary infiltrates along with massive cardiomegaly on today's chest x-ray. Going earlier to the previous chest x-rays, the patient had massive cardiomegaly. The CT angios the chest that was done on admission showed no evidence of any pulmonary embolism, patchy areas of consolidation in the left and the right upper lobe without any significant lymphadenopathy. Meanwhile, the patient was becoming more tachypneic while off sedation. I switch her to a VC plus mode at the rate of 20, tidal volume of 400, FiO2 of 100 % and this morning she wasn't a PEEP of 10 with an pulse ox of 89% and I move the PEEP up to 12. The morning blood gases showed a pH of 7.37 with a pCO2 of 56 and pO2 of 57 and this was done and FiO2 of 70%. Note that with these changes, the patient became less tachypneic and her yesterday dropped down to the mid 20s. Meanwhile, her peak air pressures around 37, static pressure of around 33 on a PEEP of 10 with a tidal volume of 400. The patient is receiving IV fluids. The patient is on broad-spectrum antibiotic with IV Zosyn. No significant orotracheal secretion. She has been intubated by a #[phone]. Afebrile. White cell count is 15.2. Neurologically, the patient does not withdraw to deep painful stimuli, no seizure activity has been noted. Pupils around 2-3 mm in size and sluggishly reactive to light. No nystagmus. No Babinski. No clonus. Positive cough and positive gag reflex. The Depakote levels have been therapeutic earlier. On 06/01/2017 the patient is being seen for a follow-up. Unfortunately she is doing poorly. For the entire day yesterday the patient was taken off Diprivan and she did not show any meaningful neurologic recovery. She was not able to follow commands. Upon repeated neurologic Exams, the patient was at times able to withdraw to deep painful stimulation. No seizure activity was noted. No response to any verbal commands. The patient remains on a mechanical ventilator at the same vent setting. Overnight the patient became progressively more tachypneic. Based on that the patient had to be placed back on the prevent to control the respiratory rate and currently she is at 50 mics of the prevent. She is calm and comfortable. She is an assist-control with an FiO2 of 70% and a tidal volume of 400 with a rate of 20 and a PEEP of 14. Peak airway pressures around 36 with a static pressure of around 33. The chest x- ray showing diffuse breath and pulmonary infiltrates. No symptoms with orotracheal secretions. No fever. Patient is covered with broad-spectrum antibiotics with a combination of Zosyn and vancomycin. Nevertheless the findings are more consistent with acute lung injury/ARDS. The patient has also developed an acute kidney injury. Creatinine is on the rise and today's creatinine is up to 1.7. The patient's morning blood gases showed a pH of 7.41 with a pCO2 of 51 and pO2 of 63. She is tolerating tube feeds. EEG from yesterday showed no epileptiform discharges and the patient had alpha frequency/ awake neurologic rhythm however despite that she was not following any specific commands and she did not show any reasonable response to stimulation. Objective - Vital Signs Vital signs: Vital Signs Temp 98.8 F 06/01/17 08:00 Pulse 65 06/01/17 11:56 Resp 29 H 06/01/17 11:36 BP 101/44 05/30/17 01:00 Pulse Ox 93 L 06/01/17 11:37 Intake & Output 05/31/17 06/01/17 06/01/17 18:59 06:59 18:59 Intake Total 756.052 9353.717 363.35 Output Total 1445 665 185 Balance -445.350 545.717 178.35 Weight 110.3 kg 111.5 kg 111.5 kg Intake: IV 253 279 92 Sodium Chloride 0.9% 1, 220 240 80 000 ml @ 20 mls/hr IV . Q24H [facility] Rx#:[id number] pressure bag 33 39 12 Intake, IV Titration 281.650 136.717 91.35 Amount Piperacillin-Tazobactam 3 100 .375 gm In Dextrose/Water 1 50ml.bag @ 12.5 mls/hr IVPB Q8HR [facility] Rx#: [id number] Propofol 1,000 mg In 131.650 136.717 91.35 Empty Bag 1 bag @ Titrate IV .Q0M [facility] Rx#: [id number] Valproate Sodium 500 mg 50 In Sodium Chloride 0.9% 50 ml @ 50 mls/hr IVPB Q12HR [facility] Rx#:[id number] Tube Feeding 405 705 180 Other 60 90 Output: Urine 1445 665 185 Other: Voiding Method Indwelling Catheter Indwelling Catheter Indwelling Catheter ABP, PAP, CO, CI - Last Documented Arterial Blood Pressure 131/65 - Exam Gen. appearance the patient is calm comfortable likely distress. She is currently off sedation. Intubated on a mechanical ventilator. She has an orotracheal and orogastric tube are both of them are in place. She has some foaminess and some rest or secretions on today's evaluation.Head exam was generally normal. There was no scleral icterus or corneal arcus. Mucous membranes were moist. Neck is short and supple. Orogastric and orotracheal tube are both in place. No goiter or neck masses. Lungs sounds are diminished bilaterally along with that there is some scattered expiratory wheezes heard throughout the lung gimenez.Cardiac exam revealed the PMI to be normally situated and sized. The rhythm was regular and no extrasystoles were noted during several minutes of auscultation. The first and second heart sounds were normal and physiologic splitting of the second heart sound was noted. There were no murmurs, rubs, clicks, or gallops. Abdomen is slightly distended soft. There is no direct tenderness rebound tensile guarding at this point. No organomegaly.Examination of the extremities revealed easily palpable radial, femoral and pedal pulses. There was no cyanosis, clubbing or edema. Neurologically the patient is not withdrawing to deep painful stimuli. She is currently Process of getting a sedation holiday. She is currently sedated with Diprivan on running at 50 mics.. No nystagmus. No clonus no facial asymmetry. No withdrawal to deep painful stimuli. Negative for Babinski and clonus. Sensory and motor functions cannot be accurately elicited. DTRs +1 symmetric in all 4 extremities.Examination of the skin revealed no evidence of significant rashes, suspicious appearing nevi or other concerning lesions. - Labs CBC & Chem 7: 06/01/17 04:05 06/01/17 04:05 Labs: Abnormal Lab Results - Last 24 Hours (Table) 05/31/17 05/31/17 05/31/17 Range/Units 12:18 18:11 20:29 WBC (3.8-10.6) k/uL RBC (3.80-5.40) m/uL Hgb (11.4-16.0) gm/dL Hct (34.0-46.0) % ABG pH 7.47 H (7.35-7.45) ABG pCO2 46 H (35-45) mmHg ABG pO2 53 L (83-108) mmHg ABG HCO3 33 H (21-25) mmol/L ABG Total CO2 35 H (19-24) mmol/L ABG O2 Saturation 88.9 L (94-97) % Potassium (3.5-5.1) mmol/L Carbon Dioxide (22-30) mmol/L BUN (7-17) mg/dL Creatinine (0.52-1.04) mg/dL Glucose (74-99) mg/dL POC Glucose (mg/dL) 143 H 152 H (75-99) mg/dL Total Bilirubin (0.2-1.3) mg/dL AST (14-36) U/L Total Protein (6.3-8.2) g/dL Albumin (3.5-5.0) g/dL 06/01/17 06/01/17 06/01/17 Range/Units 00:29 04:05 04:05 WBC 10.9 H (3.8-10.6) k/uL RBC 3.36 L (3.80-5.40) m/uL Hgb 10.0 L (11.4-16.0) gm/dL Hct 31.2 L (34.0-46.0) % ABG pH (7.35-7.45) ABG pCO2 (35-45) mmHg ABG pO2 (83-108) mmHg ABG HCO3 (21-25) mmol/L ABG Total CO2 (19-24) mmol/L ABG O2 Saturation (94-97) % Potassium 3.4 L (3.5-5.1) mmol/L Carbon Dioxide 31 H (22-30) mmol/L BUN 35 H (7-17) mg/dL Creatinine 1.70 H (0.52-1.04) mg/dL Glucose 161 H (74-99) mg/dL POC Glucose (mg/dL) 140 H (75-99) mg/dL Total Bilirubin 0.1 L (0.2-1.3) mg/dL AST 193 H (14-36) U/L Total Protein 4.4 L (6.3-8.2) g/dL Albumin 2.1 L (3.5-5.0) g/dL 18 18 06/01/17 Range/Units 05:28 05:29 11:15 WBC (3.8-10.6) k/uL RBC (3.80-5.40) m/uL Hgb (11.4-16.0) gm/dL Hct (34.0-46.0) % ABG pH (7.35-7.45) ABG pCO2 51 H (35-45) mmHg ABG pO2 63 L (83-108) mmHg ABG HCO3 32 H (21-25) mmol/L ABG Total CO2 34 H (19-24) mmol/L ABG O2 Saturation 91.8 L (94-97) % Potassium (3.5-5.1) mmol/L Carbon Dioxide (22-30) mmol/L BUN (7-17) mg/dL Creatinine (0.52-1.04) mg/dL Glucose (74-99) mg/dL POC Glucose (mg/dL) 174 H 144 H (75-99) mg/dL Total Bilirubin (0.2-1.3) mg/dL AST (14-36) U/L Total Protein (6.3-8.2) g/dL Albumin (3.5-5.0) g/dL Microbiology - Last 24 Hours (Table) 05/26/17 22:53 Blood Culture - Preliminary Blood No Growth after 120 hours 05/30/17 18:30 Blood Culture - Preliminary Blood No Growth after 24 hours 05/30/17 22:45 Gram Stain - Preliminary Sputum Sputum Culture - Preliminary Assessment and Plan Plan: Assessment 1 acute cardiac pulmonary arrest with a downtime of 15-20 minutes. 2 acute on chronic hypoxic respiratory failure with diffuse breath and pulmonary infiltrates. Possibly acute lung injury/ARDS following cardiac arrest. Possible aspiration. Patient is intubated on a mechanical ventilator. Currently peak and static pressures are quite elevated. The patient a 14 of PEEP with an FiO2 of 70%. Echocardiogram showed no evidence of any LV dysfunction and the patient did not show adequate response to diuretics. 3 acute kidney injury, possibly ATN, nonoliguric and creatinine is up to 1.7 4 COPD with acute exacerbation at time of admission with suspected underlying pneumonia 5 hypoxic encephalopathy as the patient did not show any significant neurologic recovery while off sedation. A repeat CAT scan will be done today. EEG was noted. 6 seizure disorder currently on Depakote and the levels on admission was therapeutic 7 smoker 8 E. coli urine checked infection 9 bipolar disorder 10 chronic hypercapnic respiratory failure likely secondary to COPD/obesity. Underlying obstructive sleep apnea cannot be completely eliminated 11morbid obesity with a BMI of 44.5 Plan Keep the patient on sedation for now. Take the patient for another CAT scan of the brain. Neurology to follow-up on the case and the patient obviously will need another sedation holiday to evaluate her mental status. Continue vent support. Obtain sputum Gram stain and culture. Continue current antibiotic coverage. May consider bronchoscopy to make sure there is no ongoing respirator infection/pneumonia/microbial growth yet the findings are most consistent with acute lung injury/ARDS. Continue Zosyn and vancomycin and obtain vancomycin random levels to rule out any vancomycin nephrotoxicity. Continue tube feeds. Continue rest of the supportive care. Echocardiogram was noted. Neurologist on the case. Prognosis worse baseline above-mentioned comorbidities. We'll continue to follow and make further recommendations based on progress. The family was updated on her condition. Critical care evaluation more than 30 minutes. Time with Patient: Greater than 30
[2017-06-01 17:52] LABS: Glucose,Whole Blood 127 mg/dL (75-99)
[2017-06-01] MEDS ORDERED: VANCOMYCIN 2,000 MG in SODIUM CHLORIDE 0.9% 500 ML IVPB SCH (18:00)
--- NOTE | 2017-06-01 22:54 | PN ---
PROGRESS NOTE DATE OF SERVICE: 06/01/2017. REASON FOR FOLLOWUP: Aspiration pneumonia. INTERVAL HISTORY: The patient's overall fever pattern has improved. The patient is hemodynamically stable, not requiring any pressor support. FiO2 is a total of 90%. No significant diarrhea or change in clinical condition reported by the nursing staff. PHYSICAL EXAMINATION: Blood pressure 132/52 with a pulse of 65, temperature 98.8. She is 95% on 90% FiO2. General description is a middle-aged female lying in bed in no distress. RESPIRATORY SYSTEM: Unlabored breathing. Coarse breath sounds in the bases. No wheeze. HEART: S1, S2. Regular rate and rhythm. ABDOMEN: Soft. There is no tenderness. EXTREMITIES: No edema of feet. LABS: Hemoglobin is 10 with a white count 10.9. BUN of 35, creatinine 1.70. Blood culture so far pending. DIAGNOSTIC IMPRESSION AND PLAN: Patient with acute respiratory failure post cardiac arrest with likely component of aspiration pneumonia. CT is most suggestive of acute respiratory distress syndrome pattern. She did have a fever yesterday, seemed to be responding to addition of the vancomycin, which will be continued. Discontinue the Zosyn. Sputum so far showing Jazz albicans. Blood cultures have been negative. Family was present at the bedside. Their questions were answered. MMODL / IJN: [id number] /
[2017-06-02] MEDS ORDERED: IPRATROPIUM-ALBUTEROL 3 ML NEB ONE
[2017-06-02] MEDS ORDERED: PROPOFOL 10 MG/ML 100 ML VIAL IV ONE ×2 (01:00)
[2017-06-02] MEDS: SODIUM CHLORIDE 0.9% 1,000 ML IV SCH ×3 (01:45→13:05)
[2017-06-02 03:13] LABS: Glucose,Whole Blood 139 mg/dL (75-99)
[2017-06-02] MEDS: IPRATROPIUM-ALBUTEROL 3 ML NEB INHALATION SCH ×3 (05:15→11:04)
[2017-06-02 05:20] LABS: HCT 30.2 % (34.0-46.0); HGB 9.6 gm/dL (11.4-16.0); MCH 29.5 pg (25.0-35.0); MCHC 31.8 g/dL (31.0-37.0); Mean Platelet Volume 9.3; Platelet Count 190 k/uL (150-450); RBC 3.24 m/uL (3.80-5.40); RDW 14.5 % (11.5-15.5); WBC 11.4 k/uL (3.8-10.6)
[2017-06-02 05:24] LABS: Calcium 8.5 mg/dL (8.4-10.2); Magnesium 2.4 mg/dL (1.6-2.3); Phosphorus 6.1 mg/dL (2.5-4.5); Potassium 4.3 mmol/L (3.5-5.1)
[2017-06-02] MEDS: INSULIN ASPART 100 UNIT/ML 1 ML 10 ML VIAL SQ SCH ×3 (05:31→13:05)
[2017-06-02 05:32] LABS: ABG Base Excess 5.1 mmol/L; ABG HCO3 31 mmol/L (21-25); ABG PCO2 56 mmHg (35-45); ABG PH 7.35 (7.35-7.45); ABG PO2 79 mmHg (83-108); ABG TCO2 32 mmol/L (19-24)
[2017-06-02 06:02] LABS: Glucose,Whole Blood 123 mg/dL (75-99)
--- NOTE | 2017-06-02 06:15 | P.PN ---
Subjective Progress Note Date: 06/01/17 Principal diagnosis: altered mental status Neurology is following on a 51-year-old female for altered mental status. Patient is post cardiopulmonary arrest. Etiology of incident is unknown. Provider is assuming care from off going provider who is previously monitoring patient's plan of care and treatment. Previous incident, the patient was being readied for discharge for cellulitis. Patient reportedly felt she could potentially be having a seizure and a nurse was alerted. Ativan was given IM. Patient went into cardiopulmonary arrest. Session dictatneous circulation. Patient is currently in ICU, intubated and on mechanical ventilation. Patient' s FiO2 is 100%. Patient is unresponsive to painful stimuli however, patient is on sedating medication due to higher levels of oxygenation. Objective - Vital Signs Vital signs: Vital Signs Temp 98.4 F 06/02/17 00:00 Pulse 67 06/02/17 05:00 Resp 24 06/02/17 05:00 BP 101/44 05/30/17 01:00 Pulse Ox 95 06/02/17 05:00 Intake & Output 06/01/17 06/01/17 06/02/17 06:59 18:59 06:59 Intake Total 3457.067 1522.953 728 Output Total 665 510 525 Balance 545.717 968.953 203 Weight 111.5 kg 111.5 kg Intake: IV 279 113 233 Sodium Chloride 0.9% 1, 240 80 200 000 ml @ 20 mls/hr IV . Q24H [facility] Rx#:[id number] pressure bag 39 33 33 Intake, IV Titration 136.717 885.953 75 Amount Propofol 1,000 mg In 136.717 360.953 Empty Bag 1 bag @ Titrate IV .Q0M [facility] Rx#: [id number] Sodium Chloride 0.9% 1, 525 75 000 ml @ 75 mls/hr IV . [id number] [facility] Rx#:[id number] Tube Feeding 705 480 420 Other 90 Output: Urine 665 510 525 Other: Voiding Method Indwelling Catheter Indwelling Catheter Indwelling Catheter ABP, PAP, CO, CI - Last Documented Arterial Blood Pressure 138/62 - Exam Currently sedated on a ventilator Pupils equal round reactive to light Does not respond to any form of stimuli Skin is pink warm and dry unable to complete any further assessment. - Labs CBC & Chem 7: 06/02/17 04:50 06/02/17 04:50 Labs: Abnormal Lab Results - Last 24 Hours (Table) 06/01/17 06/01/17 06/02/17 Range/Units 11:15 17:50 00:12 WBC (3.8-10.6) k/uL RBC (3.80-5.40) m/uL Hgb (11.4-16.0) gm/dL Hct (34.0-46.0) % ABG pCO2 (35-45) mmHg ABG pO2 (83-108) mmHg ABG HCO3 (21-25) mmol/L ABG Total CO2 (19-24) mmol/L Sodium (137-145) mmol/L BUN (7-17) mg/dL Creatinine (0.52-1.04) mg/dL Glucose (74-99) mg/dL POC Glucose (mg/dL) 144 H 127 H 139 H (75-99) mg/dL Phosphorus (2.5-4.5) mg/dL Magnesium (1.6-2.3) mg/dL 06/02/17 06/02/17 06/02/17 Range/Units 04:50 04:50 05:27 WBC 11.4 H (3.8-10.6) k/uL RBC 3.24 L (3.80-5.40) m/uL Hgb 9.6 L (11.4-16.0) gm/dL Hct 30.2 L (34.0-46.0) % ABG pCO2 56 H (35-45) mmHg ABG pO2 79 L (83-108) mmHg ABG HCO3 31 H (21-25) mmol/L ABG Total CO2 32 H (19-24) mmol/L Sodium 146 H (137-145) mmol/L BUN 49 H (7-17) mg/dL Creatinine 2.10 H (0.52-1.04) mg/dL Glucose 130 H (74-99) mg/dL POC Glucose (mg/dL) (75-99) mg/dL Phosphorus 6.1 H (2.5-4.5) mg/dL Magnesium 2.4 H (1.6-2.3) mg/dL Microbiology - Last 24 Hours (Table) 05/26/17 22:53 Blood Culture - Final Blood No Growth after 144 hours 05/30/17 18:30 Blood Culture - Preliminary Blood No Growth after 48 hours 05/31/17 16:49 Blood Culture - Preliminary Blood No Growth after 24 hours 05/31/17 16:55 Blood Culture - Preliminary Blood No Growth after 24 hours 05/30/17 22:45 Gram Stain - Preliminary Sputum Sputum Culture - Preliminary Jazz albicans Assessment and Plan (1) Cardiac arrest Current Visit: Yes Status: Acute Code(s): I46.9 - CARDIAC ARREST, CAUSE UNSPECIFIED SNOMED Code(s): 112502786 (2) Cellulitis Current Visit: No Status: Acute Code(s): L03.90 - CELLULITIS, UNSPECIFIED SNOMED Code(s): 030452959 (3) Seizure disorder Current Visit: No Status: Chronic Code(s): G40.909 - EPILEPSY, UNSP, NOT INTRACTABLE, WITHOUT STATUS EPILEPTICUS SNOMED Code(s): 269967950 (4) ARDS (adult respiratory distress syndrome) Current Visit: Yes Status: Acute Code(s): J80 - ACUTE RESPIRATORY DISTRESS SYNDROME SNOMED Code(s): 99056981 (5) Multiorgan failure Current Visit: Yes Status: Acute Code(s): TPF7116 - SNOMED Code(s): 15123906 Plan: 1. Status post cardiac arrest with resuscitation Management per ICU protocol 2. Seizure disorder EEG was normal, CT brain was normalunremarkable. Continue neurological checks and neurological monitoring 3. ARDS Attempt to wean FiO2 to determine underlying Respiratory status if possible 4. Altered mental status likely secondary to cardiac arrest continue neurological checks as ordered, a sedation holiday if possible, complete full neurological assessment and advise neurology if sedation holiday is completed. 5. Multiorgan failure Patient has noted laboratory blood work changes including elevated liver enzymes and decreased kidney function in addition to respiratory failure as noted in #3 above. Prognosis: Neurological status and prognosis is difficult to determine at this time due to the patient's ventilator requirements and current underlying conditions make full neurological assessment difficult. Given the patient's current high FiO2 requirements, the longer the patient remains at these levels, the poor the prognosis long-term. Status: Neurology will continue to follow on an "as needed basis" I have discussed the plan of care with the physician prior to implementation and he agrees with the plan as implemented. CHARTING DELAYED DUE TO SYSTEM MAINTENANCE EVENING / NIGHT OF 06/01-. Nursing advised of POC while rounding verbally.
--- NOTE | 2017-06-02 07:46 | P.PN ---
Subjective Progress Note Date: 06/02/17 Principal diagnosis: Continuing care status post cardiac arrest. This is a continue progress on 51-year-old white female essentially admitted for cardiac respiratory arrest. She's been on the ventilator now for 3-4 days and we have been having difficulty weaning the patient. Neurology is not consulted. Appreciate critical care element. Objective - Vital Signs Vital signs: Vital Signs Temp 98.4 F 06/02/17 00:00 Pulse 63 06/02/17 07:37 Resp 24 06/02/17 06:00 BP 101/44 05/30/17 01:00 Pulse Ox 94 L 06/02/17 06:00 Intake & Output 06/01/17 06/02/17 06/02/17 18:59 06:59 18:59 Intake Total 4459.746 7688 Output Total 510 585 Balance 968.953 726 Weight 111.5 kg Intake: IV 113 786 Sodium Chloride 0.9% 1, 80 000 ml @ 20 mls/hr IV . Q24H [facility] Rx#:[id number] Sodium Chloride 0.9% 1, 750 000 ml @ 75 mls/hr IV . [id number] [facility] Rx#:[id number] pressure bag 33 36 Intake, IV Titration 885.953 75 Amount Propofol 1,000 mg In 360.953 Empty Bag 1 bag @ Titrate IV .Q0M [facility] Rx#: [id number] Sodium Chloride 0.9% 1, 525 75 000 ml @ 75 mls/hr IV . [id number] [facility] Rx#:[id number] Tube Feeding 480 450 Output: Urine 510 585 Other: Voiding Method Indwelling Catheter Indwelling Catheter ABP, PAP, CO, CI - Last Documented Arterial Blood Pressure 139/63 - Constitutional General appearance: Present: obese - EENT Eyes: Absent: abnormal pupil - Respiratory Respiratory: bilateral: diminished - Cardiovascular Rhythm: regular Heart sounds: normal: S1, S2 Abnormal Heart Sounds: Absent: S3 Gallop - Gastrointestinal General gastrointestinal: Present: soft. Absent: tenderness - Integumentary Integumentary: Absent: jaundiced - Neurologic Neurologic: Absent: CNII-XII intact - Labs CBC & Chem 7: 06/02/17 04:50 06/02/17 04:50 Labs: Abnormal Lab Results - Last 24 Hours (Table) 06/01/17 06/01/17 06/02/17 Range/Units 11:15 17:50 00:12 WBC (3.8-10.6) k/uL RBC (3.80-5.40) m/uL Hgb (11.4-16.0) gm/dL Hct (34.0-46.0) % ABG pCO2 (35-45) mmHg ABG pO2 (83-108) mmHg ABG HCO3 (21-25) mmol/L ABG Total CO2 (19-24) mmol/L Sodium (137-145) mmol/L BUN (7-17) mg/dL Creatinine (0.52-1.04) mg/dL Glucose (74-99) mg/dL POC Glucose (mg/dL) 144 H 127 H 139 H (75-99) mg/dL Phosphorus (2.5-4.5) mg/dL Magnesium (1.6-2.3) mg/dL 06/02/17 06/02/17 06/02/17 Range/Units 04:50 04:50 05:27 WBC 11.4 H (3.8-10.6) k/uL RBC 3.24 L (3.80-5.40) m/uL Hgb 9.6 L (11.4-16.0) gm/dL Hct 30.2 L (34.0-46.0) % ABG pCO2 56 H (35-45) mmHg ABG pO2 79 L (83-108) mmHg ABG HCO3 31 H (21-25) mmol/L ABG Total CO2 32 H (19-24) mmol/L Sodium 146 H (137-145) mmol/L BUN 49 H (7-17) mg/dL Creatinine 2.10 H (0.52-1.04) mg/dL Glucose 130 H (74-99) mg/dL POC Glucose (mg/dL) (75-99) mg/dL Phosphorus 6.1 H (2.5-4.5) mg/dL Magnesium 2.4 H (1.6-2.3) mg/dL 06/02/17 Range/Units 06:00 WBC (3.8-10.6) k/uL RBC (3.80-5.40) m/uL Hgb (11.4-16.0) gm/dL Hct (34.0-46.0) % ABG pCO2 (35-45) mmHg ABG pO2 (83-108) mmHg ABG HCO3 (21-25) mmol/L ABG Total CO2 (19-24) mmol/L Sodium (137-145) mmol/L BUN (7-17) mg/dL Creatinine (0.52-1.04) mg/dL Glucose (74-99) mg/dL POC Glucose (mg/dL) 123 H (75-99) mg/dL Phosphorus (2.5-4.5) mg/dL Magnesium (1.6-2.3) mg/dL Microbiology - Last 24 Hours (Table) 05/26/17 22:53 Blood Culture - Final Blood No Growth after 144 hours 05/30/17 18:30 Blood Culture - Preliminary Blood No Growth after 48 hours 05/31/17 16:49 Blood Culture - Preliminary Blood No Growth after 24 hours 05/31/17 16:55 Blood Culture - Preliminary Blood No Growth after 24 hours 05/30/17 22:45 Gram Stain - Preliminary Sputum Sputum Culture - Preliminary Jazz albicans Assessment and Plan (1) Lethargy Current Visit: Yes Status: Acute Code(s): R53.83 - OTHER FATIGUE SNOMED Code(s): 218025923 (2) Acute exacerbation of chronic obstructive airways disease Current Visit: Yes Status: Acute Code(s): J44.1 - CHRONIC OBSTRUCTIVE PULMONARY DISEASE W (ACUTE) EXACERBATION SNOMED Code(s): 827927337 (3) Sepsis Current Visit: Yes Status: Acute Code(s): A41.9 - SEPSIS, UNSPECIFIED ORGANISM SNOMED Code(s): 73622616 (4) Seizure disorder Current Visit: No Status: Chronic Code(s): G40.909 - EPILEPSY, UNSP, NOT INTRACTABLE, WITHOUT STATUS EPILEPTICUS SNOMED Code(s): 668733980 (5) Cellulitis Current Visit: No Status: Acute Code(s): L03.90 - CELLULITIS, UNSPECIFIED SNOMED Code(s): 336386309 Plan: Continue current regimen of treatment. Neurology consult on board. Check appropriate CBC CMP and ABG and chest x-ray in a.m. Prognostic indicators are somewhat guarded. Time with Patient: Less than 30
[2017-06-02] MEDS ORDERED: VANCOMYCIN IV PER PHARMACY 1 EACH MISC MISCELLANE PRN (08:15)
--- NOTE | 2017-06-02 08:24 | XR ---
EXAMINATION TYPE: XR chest 1V portable DATE OF EXAM: 06/02/2017 COMPARISON: 06/01/2017 INDICATION: ET tube placement, difficulty breathing TECHNIQUE: Single frontal view of the chest is obtained. FINDINGS: The heart size is borderline in size. The pulmonary vasculature is prominent. There is diffuse increased lung markings throughout the bilateral lung gimenez. This is greater in the bilateral bases may be greater on the right than left. Findings appear slightly worse than compariso n. Endotracheal tube remains present with the tip above the jef. Nasogastric tube transverses the tho rax. EKG leads overlie the chest. IMPRESSION: 1. Worsening bilateral lung infiltrates. Differential would include ARDS. Continued monitoring and fo llow-up is recommended. 2. Lines and catheters discussed above.
[2017-06-02] MEDS: cloZAPine 100 MG TAB PO SCH (08:26)
[2017-06-02] MEDS: methylPREDNISolone SOD SUCCI 125 MG/2 ML VIAL IV SCH ×2 (08:51→13:04)
[2017-06-02] MEDS: CHLORHEXIDINE GLUCONATE 15 ML CUP MUCOUS MEM SCH (08:51)
[2017-06-02] MEDS: PANTOPRAZOLE 40 MG/10 ML VIAL IVP SCH (08:52)
[2017-06-02] MEDS: NYSTATIN 100,000 UNIT/GM POWD 15 GM TOPICAL SCH (08:53)
[2017-06-02] MEDS: ENOXAPARIN 40 MG/0.4 ML SYRINGE SQ SCH (08:53)
[2017-06-02] MEDS ORDERED: ARTIFICIAL TEARS OINTMENT 3.5 GM TUBE BOTH EYES PRN (08:57)
[2017-06-02] MEDS: VALPROATE SODIUM 500 MG in SODIUM CHLORIDE 0.9% 50 ML IVPB SCH (10:17)
[2017-06-02] MEDS: PIPERACILLIN-TAZOBACTAM 3.375 GM in DEXTROSE/WATER 1 50ML.BAG IVPB SCH ×2 (10:20)
--- NOTE | 2017-06-02 11:12 | PN ---
PROGRESS NOTE DATE OF SERVICE: 06/02/2017 REASON FOR FOLLOWUP: Aspiration pneumonia. INTERVAL HISTORY: The patient overall fever pattern has improved. The patient's mentation remains to be on the poor side, still requiring high FiO2. No pressor support though. No diarrhea being reported by the nursing staff. PHYSICAL EXAMINATION: On examination, blood pressure 139/63 with a pulse of 65, temperature 98.7. She is 95% on 80% FiO2. General description is a middle aged female lying in bed in no distress. RESPIRATORY SYSTEM: Unlabored breathing, coarse breath sounds at the bases bilateral. No wheeze. HEART: S1, S2. Regular rate and rhythm. ABDOMEN: Soft, no tenderness. No guarding. No rigidity. LABS: Hemoglobin 9.6, white count 11.4, BUN of 49, creatinine is 2.10. Blood culture has been negative so far. DIAGNOSTIC IMPRESSION AND PLAN: Patient with acute respiratory failure after cardiac arrest with significant with concern for underlying anoxic encephalopathy and ARDS with component of aspiration pneumonia. Currently covered with broad-spectrum antibiotic in form of vancomycin and Zosyn. However, the plan is for possible terminal wean, which may at this point. Antibiotic can be discontinued at that point. Continue supportive care. MMODL / IJN: [id number] /
[2017-06-02 11:42] LABS: Glucose,Whole Blood 134 mg/dL (75-99)
--- NOTE | 2017-06-02 12:13 | P.PN ---
<Nallely Brown - Last Filed: 06/02/17 12:01> Subjective Progress Note Date: 06/02/17 Principal diagnosis: Cardiopulmonary arrest A 51-year-old female patient, morbidly obese with a body mass index of 44.5, known history of COPD and known history of bipolar disorder and seizure disorder maintained on a combination of Clozaril and Depakote on outpatient basis, came into the hospital initially for an acute COPD exacerbation and she had a in-house cardiopulmonary arrest. Apparently the patient was found to be unresponsive and she was in asystole. She required 15-20 minutes of cardiopulmonary cessation and following that she was brought in to the intensive care unit intubated on mechanical ventilator. The patient was initially seen by my partner and I am taking over the case today This morning the patient was taken off Diprivan. Since her cardiac arrest the patient was on high-dose of the prevent and currently she is off and she is at the point where she is being monitored neurologically and further neuro workup is being done to make sure there is no significant hypoxic encephalopathy. The patient already had a CAT scan of the brain on 05/29/2017 that showed no acute abnormality. EEG was performed this morning after stopping the Diprivan. It shows diffuse slowing without any burst suppression and final interpretation by the neurologist still pending for now. Meanwhile, the patient has developed diffuse breath and pulmonary infiltrates along with massive cardiomegaly on today's chest x-ray. Going earlier to the previous chest x-rays, the patient had massive cardiomegaly. The CT angios the chest that was done on admission showed no evidence of any pulmonary embolism, patchy areas of consolidation in the left and the right upper lobe without any significant lymphadenopathy. Meanwhile, the patient was becoming more tachypneic while off sedation. I switch her to a VC plus mode at the rate of 20, tidal volume of 400, FiO2 of 100 % and this morning she wasn't a PEEP of 10 with an pulse ox of 89% and I move the PEEP up to 12. The morning blood gases showed a pH of 7.37 with a pCO2 of 56 and pO2 of 57 and this was done and FiO2 of 70%. Note that with these changes, the patient became less tachypneic and her yesterday dropped down to the mid 20s. Meanwhile, her peak air pressures around 37, static pressure of around 33 on a PEEP of 10 with a tidal volume of 400. The patient is receiving IV fluids. The patient is on broad-spectrum antibiotic with IV Zosyn. No significant orotracheal secretion. She has been intubated by a #[id number]. Afebrile. White cell count is 15.2. Neurologically, the patient does not withdraw to deep painful stimuli, no seizure activity has been noted. Pupils around 2-3 mm in size and sluggishly reactive to light. No nystagmus. No Babinski. No clonus. Positive cough and positive gag reflex. The Depakote levels have been therapeutic earlier. On 06/01/2017 the patient is being seen for a follow-up. Unfortunately she is doing poorly. For the entire day yesterday the patient was taken off Diprivan and she did not show any meaningful neurologic recovery. She was not able to follow commands. Upon repeated neurologic Exams, the patient was at times able to withdraw to deep painful stimulation. No seizure activity was noted. No response to any verbal commands. The patient remains on a mechanical ventilator at the same vent setting. Overnight the patient became progressively more tachypneic. Based on that the patient had to be placed back on the prevent to control the respiratory rate and currently she is at 50 mics of the prevent. She is calm and comfortable. She is an assist-control with an FiO2 of 70% and a tidal volume of 400 with a rate of 20 and a PEEP of 14. Peak airway pressures around 36 with a static pressure of around 33. The chest x- ray showing diffuse breath and pulmonary infiltrates. No symptoms with orotracheal secretions. No fever. Patient is covered with broad-spectrum antibiotics with a combination of Zosyn and vancomycin. Nevertheless the findings are more consistent with acute lung injury/ARDS. The patient has also developed an acute kidney injury. Creatinine is on the rise and today's creatinine is up to 1.7. The patient's morning blood gases showed a pH of 7.41 with a pCO2 of 51 and pO2 of 63. She is tolerating tube feeds. EEG from yesterday showed no epileptiform discharges and the patient had alpha frequency/ awake neurologic rhythm however despite that she was not following any specific commands and she did not show any reasonable response to stimulation. The patient is seen again today 06/02/2017 in follow-up in the intensive care unit. The patient continues to do quite poorly. She remains off sedation and has no meaningful neurologic recovery. She is not following any commands. Not responding to any painful stimuli. No further seizure activity. She remains on the mechanical ventilator at assist control rate of 22, tidal volume 400, FiO2 90% and a PEEP of 14. Peak airway pressures at 40 with a static pressure of 28. Morning blood gases reveal a P O2 of 79, pCO2 of 56 and a pH of 7.35. Chest x-ray continues to show worsening bilateral lung infiltrates suspect ARDS. White count 11.4. Hemoglobin 9.6. Sodium 146. BUN 49. Creatinine 2.10. She has been seen and evaluated by neurology who feels her overall neurologic prognosis remains quite poor. Objective - Vital Signs Vital signs: Vital Signs Temp 98.7 F 06/02/17 08:00 Pulse 64 06/02/17 11:15 Resp 23 06/02/17 10:00 BP 101/44 05/30/17 01:00 Pulse Ox 95 06/02/17 10:00 Intake & Output 06/01/17 06/02/17 06/02/17 18:59 06:59 18:59 Intake Total 0376.825 5206 562 Output Total 510 585 138 Balance 968.953 726 424 Weight 111.5 kg 113.6 kg Intake: IV 113 786 312 Normal Saline Pressure 33 36 12 Bag Sodium Chloride 0.9% 1, 80 000 ml @ 20 mls/hr IV . Q24H [facility] Rx#:[id number] Sodium Chloride 0.9% 1, 750 300 000 ml @ 75 mls/hr IV . [id number] [facility] Rx#:[id number] Intake, IV Titration 885.953 75 100 Amount Propofol 1,000 mg In 360.953 100 Empty Bag 1 bag @ Titrate IV .Q0M [place] Rx#: [id number] Sodium Chloride 0.9% 1, 525 75 000 ml @ 75 mls/hr IV . [id number] [place] Rx#:[id number] Tube Feeding 480 450 120 Other 30 Output: Urine 510 585 138 Other: Voiding Method Indwelling Catheter Indwelling Catheter Indwelling Catheter ABP, PAP, CO, CI - Last Documented Arterial Blood Pressure 141/62 - Exam Gen. appearance the patient remains unresponsive to any tactile or verbal stimuli. She is currently off sedation. Intubated on a mechanical ventilator. She has an orotracheal and orogastric tube are both of them are in place. She has some foaminess and some rest or secretions on today's evaluation.Head exam was generally normal. There was no scleral icterus or corneal arcus. Mucous membranes were moist. Neck is short and supple. Orogastric and orotracheal tube are both in place. No goiter or neck masses. Lungs sounds are diminished bilaterally along with that there is some scattered expiratory wheezes heard throughout the lung gimenez.Cardiac exam revealed the PMI to be normally situated and sized. The rhythm was regular and no extrasystoles were noted during several minutes of auscultation. The first and second heart sounds were normal and physiologic splitting of the second heart sound was noted. There were no murmurs, rubs, clicks, or gallops. Abdomen is slightly distended soft. There is no direct tenderness rebound tensile guarding at this point. No organomegaly.Examination of the extremities revealed easily palpable radial, femoral and pedal pulses. There was no cyanosis, clubbing or edema. Neurologically the patient is not withdrawing to deep painful stimuli. She is currently Process of getting a sedation holiday. She is currently off sedation. No nystagmus. No clonus no facial asymmetry. No withdrawal to deep painful stimuli. Negative for Babinski and clonus. Sensory and motor functions cannot be accurately elicited. DTRs +1 symmetric in all 4 extremities.Examination of the skin revealed no evidence of significant rashes, suspicious appearing nevi or other concerning lesions. - Labs CBC & Chem 7: 06/02/17 04:50 06/02/17 04:50 Labs: Abnormal Lab Results - Last 24 Hours (Table) 06/01/17 06/02/17 06/02/17 Range/Units 17:50 00:12 04:50 WBC 11.4 H (3.8-10.6) k/uL RBC 3.24 L (3.80-5.40) m/uL Hgb 9.6 L (11.4-16.0) gm/dL Hct 30.2 L (34.0-46.0) % ABG pCO2 (35-45) mmHg ABG pO2 (83-108) mmHg ABG HCO3 (21-25) mmol/L ABG Total CO2 (19-24) mmol/L Sodium (137-145) mmol/L BUN (7-17) mg/dL Creatinine (0.52-1.04) mg/dL Glucose (74-99) mg/dL POC Glucose (mg/dL) 127 H 139 H (75-99) mg/dL Phosphorus (2.5-4.5) mg/dL Magnesium (1.6-2.3) mg/dL 06/02/17 06/02/17 06/02/17 Range/Units 04:50 05:27 06:00 WBC (3.8-10.6) k/uL RBC (3.80-5.40) m/uL Hgb (11.4-16.0) gm/dL Hct (34.0-46.0) % ABG pCO2 56 H (35-45) mmHg ABG pO2 79 L (83-108) mmHg ABG HCO3 31 H (21-25) mmol/L ABG Total CO2 32 H (19-24) mmol/L Sodium 146 H (137-145) mmol/L BUN 49 H (7-17) mg/dL Creatinine 2.10 H (0.52-1.04) mg/dL Glucose 130 H (74-99) mg/dL POC Glucose (mg/dL) 123 H (75-99) mg/dL Phosphorus 6.1 H (2.5-4.5) mg/dL Magnesium 2.4 H (1.6-2.3) mg/dL 06/02/17 Range/Units 11:41 WBC (3.8-10.6) k/uL RBC (3.80-5.40) m/uL Hgb (11.4-16.0) gm/dL Hct (34.0-46.0) % ABG pCO2 (35-45) mmHg ABG pO2 (83-108) mmHg ABG HCO3 (21-25) mmol/L ABG Total CO2 (19-24) mmol/L Sodium (137-145) mmol/L BUN (7-17) mg/dL Creatinine (0.52-1.04) mg/dL Glucose (74-99) mg/dL POC Glucose (mg/dL) 134 H (75-99) mg/dL Phosphorus (2.5-4.5) mg/dL Magnesium (1.6-2.3) mg/dL Microbiology - Last 24 Hours (Table) 05/30/17 22:45 Gram Stain - Final Sputum Sputum Culture - Final Jazz albicans 05/26/17 22:53 Blood Culture - Final Blood No Growth after 144 hours 05/30/17 18:30 Blood Culture - Preliminary Blood No Growth after 48 hours 05/31/17 16:49 Blood Culture - Preliminary Blood No Growth after 24 hours 05/31/17 16:55 Blood Culture - Preliminary Blood No Growth after 24 hours Assessment and Plan Assessment: Assessment 1 acute cardiac pulmonary arrest with a downtime of 15-20 minutes. 2 acute on chronic hypoxic respiratory failure with diffuse breath and pulmonary infiltrates. Possibly acute lung injury/ARDS following cardiac arrest. Possible aspiration. Patient is intubated on a mechanical ventilator. Currently peak and static pressures are quite elevated. The patient a 14 of PEEP with an FiO2 of 90%. Echocardiogram showed no evidence of any LV dysfunction and the patient did not show adequate response to diuretics. 3 acute kidney injury, possibly ATN, nonoliguric and creatinine is up to 2.10 4 COPD with acute exacerbation at time of admission with suspected underlying pneumonia 5 hypoxic encephalopathy as the patient did not show any significant neurologic recovery while off sedation. A repeat CAT scan was done. EEG was noted. 6 seizure disorder currently on Depakote and the levels on admission was therapeutic 7 smoker 8 E. coli urine checked infection 9 bipolar disorder 10 chronic hypercapnic respiratory failure likely secondary to COPD/obesity. Underlying obstructive sleep apnea cannot be completely eliminated 11morbid obesity with a BMI of 44.5 Plan: The patient was seen and evaluated by Dr. Disla. She remains off sedation. She remains unresponsive to any verbal or tactile stimuli. Her overall prognosis is quite poor. Neurology recommendations are noted. Computed tomography scan and EEG results reviewed. Dr. Disla did have a lengthy discussion with the , sister and multiple family members. They are aware of her grave prognosis. They are all in agreement to go to hospice/ comfort care in this situation. All of their questions were answered. Once the family is ready we will put in the hospice/comfort care orders. Critical care time 38 minutes. I, the cosigning physician, performed a history & physical examination of the patient. Lungs sounds are coarse rhonchi, crackles in the posterior bases. Maintaining good O2 saturations in the 90s on 2% FiO2 intubated on mechanical ventilator. I discussed the assessment and plan of care with my nurse practitioner, Nallely Brown. I attest to the above note as dictated by her. Time with Patient: Greater than 30 <Genet Disla - Last Filed: 06/02/17 13:50> Objective - Vital Signs Vital signs: Vital Signs Temp 98 F 06/02/17 12:00 Pulse 65 06/02/17 13:00 Resp 21 06/02/17 13:00 BP 101/44 05/30/17 01:00 Pulse Ox 96 06/02/17 13:00 Intake & Output 06/01/17 06/02/17 06/02/17 18:59 06:59 18:59 Intake Total 8759.471 2975 916 Output Total 510 585 251 Balance 968.953 726 665 Weight 111.5 kg 113.6 kg Intake: IV 113 786 546 Normal Saline Pressure 33 36 21 Bag Sodium Chloride 0.9% 1, 80 000 ml @ 20 mls/hr IV . Q24H [place] Rx#:[id number] Sodium Chloride 0.9% 1, 750 525 000 ml @ 75 mls/hr IV . [id number] [place] Rx#:[id number] Intake, IV Titration 885.953 75 100 Amount Propofol 1,000 mg In 360.953 100 Empty Bag 1 bag @ Titrate IV .Q0M [place] Rx#: [id number] Sodium Chloride 0.9% 1, 525 75 000 ml @ 75 mls/hr IV . [id number] [place] Rx#:[id number] Tube Feeding 480 450 210 Other 60 Output: Urine 510 585 251 Other: Voiding Method Indwelling Catheter Indwelling Catheter Indwelling Catheter ABP, PAP, CO, CI - Last Documented Arterial Blood Pressure 153/67 - Labs CBC & Chem 7: 06/02/17 04:50 06/02/17 04:50 Labs: Abnormal Lab Results - Last 24 Hours (Table) 06/01/17 06/02/17 06/02/17 Range/Units 17:50 00:12 04:50 WBC 11.4 H (3.8-10.6) k/uL RBC 3.24 L (3.80-5.40) m/uL Hgb 9.6 L (11.4-16.0) gm/dL Hct 30.2 L (34.0-46.0) % ABG pCO2 (35-45) mmHg ABG pO2 (83-108) mmHg ABG HCO3 (21-25) mmol/L ABG Total CO2 (19-24) mmol/L Sodium (137-145) mmol/L BUN (7-17) mg/dL Creatinine (0.52-1.04) mg/dL Glucose (74-99) mg/dL POC Glucose (mg/dL) 127 H 139 H (75-99) mg/dL Phosphorus (2.5-4.5) mg/dL Magnesium (1.6-2.3) mg/dL 06/02/17 06/02/17 06/02/17 Range/Units 04:50 05:27 06:00 WBC (3.8-10.6) k/uL RBC (3.80-5.40) m/uL Hgb (11.4-16.0) gm/dL Hct (34.0-46.0) % ABG pCO2 56 H (35-45) mmHg ABG pO2 79 L (83-108) mmHg ABG HCO3 31 H (21-25) mmol/L ABG Total CO2 32 H (19-24) mmol/L Sodium 146 H (137-145) mmol/L BUN 49 H (7-17) mg/dL Creatinine 2.10 H (0.52-1.04) mg/dL Glucose 130 H (74-99) mg/dL POC Glucose (mg/dL) 123 H (75-99) mg/dL Phosphorus 6.1 H (2.5-4.5) mg/dL Magnesium 2.4 H (1.6-2.3) mg/dL 06/02/17 Range/Units 11:41 WBC (3.8-10.6) k/uL RBC (3.80-5.40) m/uL Hgb (11.4-16.0) gm/dL Hct (34.0-46.0) % ABG pCO2 (35-45) mmHg ABG pO2 (83-108) mmHg ABG HCO3 (21-25) mmol/L ABG Total CO2 (19-24) mmol/L Sodium (137-145) mmol/L BUN (7-17) mg/dL Creatinine (0.52-1.04) mg/dL Glucose (74-99) mg/dL POC Glucose (mg/dL) 134 H (75-99) mg/dL Phosphorus (2.5-4.5) mg/dL Magnesium (1.6-2.3) mg/dL Microbiology - Last 24 Hours (Table) 05/30/17 22:45 Gram Stain - Final Sputum Sputum Culture - Final Jazz albicans 05/26/17 22:53 Blood Culture - Final Blood No Growth after 144 hours 05/30/17 18:30 Blood Culture - Preliminary Blood No Growth after 48 hours 05/31/17 16:49 Blood Culture - Preliminary Blood No Growth after 24 hours 05/31/17 16:55 Blood Culture - Preliminary Blood No Growth after 24 hours Assessment and Plan Assessment: This evaluation was done in a joint fashion along with the nurse practitioner. We met with the family. The family had already made up their mind to proceed with comfort care measures. The understood that the patient had significant hypoxic encephalopathy and she was not showing reasonable neurologic recovery while in off sedation. Based on all this, and based on family wishes, we'll proceed with comfort care measures/hospice at a later stage today. I personally met with the family. I talked to the . There was large number of family members in the room and all of them identified themselves as family members. His sister was also there. No other recommendations from my standpoint. I think is reasonable to consider comfort care measures baseline above-mentioned circumstances. We'll continue to follow.
[2017-06-02 12:28] VITALS: PULSE 65; TEMP 98
--- NOTE | 2017-06-02 13:54 | CDI ---
Last Revision, January 2017 Documentation Clarification Form Date: 06/02/17 01:50 PM From: Skye May Admit Date: 05/27/2017 1:32:00 AM Patient Name: Dana Nicole Visit Number: [id number] ATTENTION: The Clinical Documentation Specialists (CDI) and [facility] Coding Staff appreciate your assistance in clarifying documentation. Please respond to the clarification below the line at the bottom and electronically sign. The CDI & [facility] Coding staff will review the response and follow-up if needed. Please note: Queries are made part of the Legal Health Record. If you have any questions, please contact the author of this message via ITS. Dr. Beny Leyva, History/Risk Factors: seizures, sleep apnea, smoker pack per day, cellulitis on left leg, schizophrenia, morbid obese presented with COPD exacerbation, went into cardiacpulmonary arrest Clinical Indicators: Patients admission BUN/CR/GFR: /. Current BUN/Cr/GFR : 06/02: 49/2.12/11 Treatment: Monitor labs IVF .9 @ 20, bolus x 2 In order to capture the severity of condition, please clarify if the condition signifies: Acute renal failure, Please specify etiology (if known): Acute renal failure Acute on chronic renal failure CKD Stage 2 GFR 60-89 CKD Stage 3 GFR 30-59 CKD Stage 4 GFR 15-29 Other, please specify Unable to determine Please continue to document in your progress notes, under the line below and discharge summary in order to capture severity of illness and risk of mortality. Include clinical findings that support your diagnosis. MTDD
[2017-06-02 14:44] LABS: Albumin 2.2 g/dL (3.5-5.0); Total Bilirubin 0.3 mg/dL (0.2-1.3); Total Protein 4.7 g/dL (6.3-8.2)
[2017-06-02 14:53] VITALS: RESP 27
== END 2017-06-02 14:56 | disposition hospice, inpatient (51) | DRG 871 ==
LOC: EC 21:50 → 6SEL 05-27 01:32 → 5MS5E 05-28 11:08 → 6ICU 05-29 06:48
PROVIDERS: ADMIT Family Medicine; ATTEND Family Medicine
PROC: 4A133B1 Monitoring of Arterial Pressure, Peripheral, Percutaneous Approach (ICD-10-PCS; principal; 2017-05-29)
PROC: 0BH18EZ Insertion of Endotracheal Airway into Trachea, Via Natural or Artificial Opening Endoscopic (ICD-10-PCS; principal; 2017-05-29)
PROC: 04HY32Z Insertion of Monitoring Device into Lower Artery, Percutaneous Approach (ICD-10-PCS; principal; 2017-05-29)
PROC: 5A1945Z Respiratory Ventilation, 24-96 Consecutive Hours (ICD-10-PCS; principal; 2017-05-29)
PROC: 4A133J1 Monitoring of Arterial Pulse, Peripheral, Percutaneous Approach (ICD-10-PCS; principal; 2017-05-29)
DX: A41.9 Sepsis, unspecified organism (principal); I46.9 Cardiac arrest, cause unspecified; J96.21 Acute and chronic respiratory failure with hypoxia; J69.0 Pneumonitis due to inhalation of food and vomit; G93.1 Anoxic brain damage, not elsewhere classified; N17.9 Acute kidney failure, unspecified; F17.210 Nicotine dependence, cigarettes, uncomplicated; B85.2 Pediculosis, unspecified; J96.22 Acute and chronic respiratory failure with hypercapnia; J44.1 Chronic obstructive pulmonary disease with (acute) exacerbation; Z68.41 Body mass index [BMI] 40.0-44.9, adult; L03.116 Cellulitis of left lower limb; E66.01 Morbid (severe) obesity due to excess calories; F20.9 Schizophrenia, unspecified; F31.9 Bipolar disorder, unspecified; G40.909 Epilepsy, unspecified, not intractable, without status epilepticus; G47.33 Obstructive sleep apnea (adult) (pediatric); I51.7 Cardiomegaly; Z79.4 Long term (current) use of insulin; Z79.899 Other long term (current) drug therapy; Z83.3 Family history of diabetes mellitus; R21 Rash and other nonspecific skin eruption
CPT/HCPCS: 36415; 36600; 70450; 71045; 71046; 71250; 71275; 80053; 80164; 80202; 81001; 82805; 83605; 83735; 84100; 85025; 85027; 85379; 85610; 85730; 86618; 87040; 87070; 87077; 87086; 87186; 87205; 87502; 93005; 93306; 94002; 94003; 94640; 95816; 96361; 96365; 96375; 99285

== ENCOUNTER 2017-06-02 15:07 | Inpatient (IN) | payer MEDICAID ==
[2017-06-02] MEDS ORDERED: ACETAMINOPHEN SUPPOSITORY 650 MG SUPP RECTAL PRN (15:09)
[2017-06-02] MEDS ORDERED: ONDANSETRON 4 MG/2 ML VIAL IVP PRN (15:11)
[2017-06-02] MEDS ORDERED: SCOPOLAMINE 1.5MG/72HR PATCH TRANSDERM PRN (15:11)
[2017-06-02] MEDS ORDERED: MORPHINE SULFATE (100 MG/2 ML) 100 MG in SODIUM CHLORIDE 0.9% 100 ML IV SCH (15:15)
[2017-06-02] MEDS ORDERED: LORazepam 2 MG/ML INJ IV PRN (15:16)
[2017-06-02] MEDS ORDERED: LORazepam 2 MG/ML INJ IV ONE (15:20)
[2017-06-02] MEDS ORDERED: MORPHINE SULFATE 4MG/4ML SYRG IVP ONE (15:30)
[2017-06-02 16:33] VITALS: PULSE 0; RESP 39
== END 2017-06-02 18:07 | disposition expired | DRG 951 ==
LOC: 6ICU 15:07
PROVIDERS: ADMIT Family Medicine; ATTEND Family Medicine
DX: Z51.5 Encounter for palliative care (principal); A41.9 Sepsis, unspecified organism; J44.1 Chronic obstructive pulmonary disease with (acute) exacerbation; G40.909 Epilepsy, unspecified, not intractable, without status epilepticus; F17.210 Nicotine dependence, cigarettes, uncomplicated